=== PATIENT | female | born 1935 | race Caucasian/White ===

== ENCOUNTER → 2017-01-13 | Outpatient (CLI) | payer OTHER ==
[~2017-01-13] MED LIST: AMLO-110 PO; AMLO-114 PO; APR10 PO; ASPI81TA28 PO; CALC500T83 PO; CHOL100010 PO; CLC100X PO; CRD2 PO; CYAN10002 INJ; DOXA1TAB86 PO; FLUT0.15; FURO-85 PO; GLIM2TAB PO; HYDR-4383 PO; HYZ/10015 PO; ISOS60TA25 PO; KFL500 PO; LOSA100T2 PO; METH4PAK PO; METO-551 PO; METO100T14 PO; NTRGSL/4 UT; OMEP40CA PO; PANT40TA PO; TOLT2TAB9 PO; TRMCR130WC
[2017-01-13 12:37] LABS: BLOOD UREA NITROGEN 30 mg/dl (7-18); BUN/CREATININE RATIO 24.7 (10-20); CALCIUM 8.6 mg/dl (8.5-10.1); CARBON DIOXIDE 25 mmol/L (21-32); CHLORIDE 107 mmol/L (98-107); GLUCOSE 199 mg/dl (70-99); POTASSIUM 4.9 mmol/L (3.5-5.1); SODIUM 141 mmol/L (136-145)
== END | disposition home or self-care (01) ==
LOC: C.LABBFT 11:12
PROVIDERS: ATTEND Internal Medicine Geriatric Medicine
DX: I25.10 Atherosclerotic heart disease of native coronary artery without angina pectoris (principal); E11.29 Type 2 diabetes mellitus with other diabetic kidney complication; I10 Essential (primary) hypertension

== ENCOUNTER → 2017-01-18 | Outpatient (CLI) | payer OTHER | END | disposition home or self-care (01) | LOC: C.LABSPEC 16:56 | PROVIDERS: ATTEND Nurse Practitioner Family | DX: R35.0 Frequency of micturition (principal); R30.0 Dysuria ==

== ENCOUNTER → 2017-01-24 | Outpatient (CLI) | payer OTHER ==
--- NOTE | 2017-01-24 13:07 | DIAGNOSTIC IMAGING REPORT ---
ULTRASOUND KIDNEYS AND BLADDER CLINICAL HISTORY: Urinary tract infection. COMPARISON STUDY: Abdominal CT dated 01/11/2013. TECHNIQUE: Real-time, grayscale, and color flow sonography of the kidneys and bladder is performed. Images are reviewed in the transverse and longitudinal planes. FINDINGS: Kidneys: The kidneys are atrophic. The right kidney measures 9.9 x 4.6 x 3.9 cm and the left kidney measures 10.1 x 4.4 x 5.1 cm. There is no hydronephrosis. No shadowing renal calculi are identified. Prominent lobulation of left kidney is similar to previous. No solid mass is clearly seen. No perinephric fluid is identified. Bladder: The bladder is decompressed and grossly normal in appearance. Bilateral ureteral jets were seen. Upper abdomen: Survey images of the liver demonstrate cirrhotic change and steatosis. IMPRESSION: 1. The kidneys demonstrate cortical atrophy and are without hydronephrosis. 2. The bladder was decompressed and grossly unremarkable. Electronically signed by: Bryce Jack M.D. 01/24/2017 1:06 PM Dictated Date/Time: 01/24/2017 1:03 PM
== END | disposition home or self-care (01) ==
LOC: C.ULTR 12:18
PROVIDERS: ATTEND Nurse Practitioner Family
DX: N39.0 Urinary tract infection, site not specified (principal); N26.1 Atrophy of kidney (terminal)

== ENCOUNTER → 2017-03-11 | Outpatient (CLI) | payer OTHER ==
[2017-03-11 13:38] LABS: HEMATOCRIT 34.6 % (37-47); MEAN CELL VOLUME 95.3 fL (80-100); MEAN CORPUSCULAR HEMOGLOBIN 32.5 pg (25-34); MEAN CORPUSCULAR HGB CONC 34.1 g/dl (32-36); MEAN PLATELET VOLUME 13.3 fL (7.4-10.4); PLATELET COUNT 61 K/uL (130-400); RED BLOOD COUNT 3.63 M/uL (4.2-5.4); WHITE BLOOD COUNT 2.83 K/uL (4.8-10.8)
[2017-03-11 13:39] LABS: COMPLETE YES; EOS % 1.4 %; IG% 0.4 %; LARGE PLATELETS 1+; LYMPH ABS # 0.48 K/uL (1.2-3.4); MONO % 10.6 %; NEUT % 70.6 %; PLT ESTIMATE DECREASED
[2017-03-11 13:43] LABS: ESTIMATED AVERAGE GLUCOSE 143 mg/dl; HA1C FLAG Normal (Normal)
[2017-03-11 14:01] LABS: ALT/SGPT 28 U/L (12-78); BLOOD UREA NITROGEN 29 mg/dl (7-18); BUN/CREATININE RATIO 23.9 (10-20); CARBON DIOXIDE 27 mmol/L (21-32); CHLORIDE 107 mmol/L (98-107); GLUCOSE 141 mg/dl (70-99); POTASSIUM 4.4 mmol/L (3.5-5.1); SODIUM 141 mmol/L (136-145)
[2017-03-11 14:02] LABS: CALCIUM 8.8 mg/dl (8.5-10.1)
[2017-03-11 14:11] LABS: ALB/GLOB RATIO 0.8 (0.9-2); ALKALINE PHOSPHATASE 111 U/L (45-117); AST/SGOT 31 U/L (15-37)
--- NOTE | 2017-03-11 16:25 | ECHOCARDIOGRAM REPORT ---
*NOTICE TO RECEIVING REPUBLICAN AGENCY This information is strictly Confidential and protected under [place] law. [place] law prohibits you from making any further disclosure of this information unless further disclosure is expressly permitted by the written consent of the person to whom it pertains or is authorized by law. A general authorization for the release of medical or other information is not sufficient for this purpose. Hospital accepts no responsibility if the information is made available to any other person, INCLUDING THE PATIENT. Interpretation Summary * Name: HEATHER ESTRADA Study Date: 03/11/2017 12:21 PM BP: 145/45 mmHg * Patient Location: [facility] HR: 59 * : 1935 (M/d/yyyy) Gender: Female Height: 61 in * Age: 81 yrs Ethnicity: [place] Weight: 185 lb * Ordering Physician: Alfred Guthrie * Referring Physician: Dariana Bird * Performed By: Meeta Cuevas RDCS * * Reason For Study: a/p tavr * BSA: 1.8 m2 * -- Conclusions -- * There is mild asymmetric left ventricular hypertrophy. * Left ventricular systolic function is normal. * Grade I diastolic dysfunction, (abnormal relaxation pattern). * The left atrium is moderately dilated. * The right atrium is mildly dilated. * A bioprsthetic aortic valve (TAVR) is present * Normal transvalvular gradients * Right ventricular systolic pressure is normal. Procedure Details * The study was technically adequate. Left Ventricle * The left ventricle is normal in size. * There is mild asymmetric left ventricular hypertrophy. * Ejection Fraction = 60-65%. * Left ventricular systolic function is normal. * Grade I diastolic dysfunction, (abnormal relaxation pattern). Right Ventricle * The right ventricle is normal in size and function. Atria * The left atrium is moderately dilated. * The right atrium is mildly dilated. Mitral Valve * The mitral valve is grossly normal. * Significant mitral regurgitation is absent. Tricuspid Valve * The tricuspid valve is not well visualized, but is grossly normal. * There is trace tricuspid regurgitation. * Right ventricular systolic pressure is normal. Aortic Valve * There is no significant aortic regurgitation. * A bioprsthetic aortic valve (TAVR) is present Normal transvalvular gradients * The prosthetic aortic valve is well-seated. Pericardium/Pleural * There is no pericardial effusion. Great Vessels * Normal inferior vena cava diameter and respiratory variation suggests normal central venous pressure. MMode 2D Measurements and Calculations IVSd 1.6 cm IVSs 1.8 cm LVIDd 4.3 cm LVIDs 2.8 cm LVPWd 1.3 cm LVPWs 2.4 cm IVS/LVPW 1.3 FS 33.3 % EDV(Teich) 81.3 ml ESV(Teich) 30.6 ml EF(Teich) 62.4 % EDV(cubed) 77.3 ml ESV(cubed) 22.9 ml EF(cubed) 70.4 % % IVS thick 7.4 % % LVPW thick 89.8 % LV mass(C)d 242.3 grams LV mass(C)dI 132.6 grams/m\S\2 LV mass(C)s 267.7 grams LV mass(C)sI 146.5 grams/m\S\2 SV(Teich) 50.7 ml SI(Teich) 27.7 ml/m\S\2 SV(cubed) 54.4 ml SI(cubed) 29.8 ml/m\S\2 LA dimension 4.7 cm LVOT diam 1.9 cm LVOT area 2.8 cm\S\2 LVAd ap4 36.4 cm\S\2 LVLd ap4 8.9 cm EDV(MOD-sp4) 120.8 ml EDV(sp4-el) 126.9 ml LVAs ap4 18.8 cm\S\2 LVLs ap4 6.7 cm ESV(MOD-sp4) 43.7 ml ESV(sp4-el) 44.9 ml EF(MOD-sp4) 63.8 % EF(sp4-el) 64.6 % SV(MOD-sp4) 77.1 ml SI(MOD-sp4) 42.2 ml/m\S\2 SV(sp4-el) 82.0 ml SI(sp4-el) 44.9 ml/m\S\2 Doppler Measurements and Calculations MV E max angelina 79.3 cm/sec MV A max angelina 109.5 cm/sec MV E/A 0.72 MV dec time 0.43 sec Ao V2 max 191.6 cm/sec Ao max PG 14.7 mmHg Ao max PG (full) 7.9 mmHg Ao V2 mean 126.1 cm/sec Ao mean PG 7.5 mmHg Ao mean PG (full) 4.1 mmHg Ao V2 VTI 48.5 cm KATHERIN(I,A) 2.1 cm\S\2 KATHERIN(I,D) 2.1 cm\S\2 KATHERIN(V,A) 1.9 cm\S\2 KATHERIN(V,D) 1.9 cm\S\2 LV V1 max PG 6.8 mmHg LV V1 mean PG 3.4 mmHg LV V1 max 130.5 cm/sec LV V1 mean 83.1 cm/sec LV V1 VTI 36.2 cm SV(LVOT) 100.8 ml SI(LVOT) 55.1 ml/m\S\2 TR max angelina 221.6 cm/sec
== END | disposition home or self-care (01) ==
LOC: C.CPL 11:28
PROVIDERS: ATTEND Internal Medicine Interventional Cardiology
DX: Z95.2 Presence of prosthetic heart valve (principal); I25.10 Atherosclerotic heart disease of native coronary artery without angina pectoris; I10 Essential (primary) hypertension; R06.02 Shortness of breath; R35.0 Frequency of micturition; M85.80 Other specified disorders of bone density and structure, unspecified site; G62.9 Polyneuropathy, unspecified; E11.29 Type 2 diabetes mellitus with other diabetic kidney complication

== ENCOUNTER 2017-04-20 17:41 | Emergency (ER) | payer OTHER ==
[~2017-04-20] VITALS: Ht 152.4 cm; Wt 83.9 kg
[~2017-04-20 17:41] MED LIST changes: -AMLO-114 PO; -CLC100X PO; -FLUT0.15; -HYDR-4383 PO; -HYZ/10015 PO; -METH4PAK PO; -METO-551 PO; -PANT40TA PO; -TOLT2TAB9 PO; -TRMCR130WC
[2017-04-20 17:44] VITALS: TEMP 36.6; Ht 152.4 cm; Wt 83.9 kg
[2017-04-20] MEDS ORDERED: HYZ/10015 PO (18:13)
[2017-04-20] MEDS ORDERED: TOLT2TAB9 PO (18:13)
[2017-04-20] MEDS ORDERED: TRMCR130WC (18:13)
[2017-04-20] MEDS ORDERED: FLUT0.15 (18:13)
[2017-04-20] MEDS ORDERED: CLC100X PO (18:13)
[2017-04-20] MEDS ORDERED: PANT40TA PO (18:13)
[2017-04-20] MEDS ORDERED: ISOS60TA25 PO (18:13)
[2017-04-20] MEDS ORDERED: HYDR-4383 PO (18:13)
[2017-04-20] MEDS ORDERED: METO-551 PO (18:13)
[2017-04-20] MEDS ORDERED: AMLO-114 PO (18:13)
[2017-04-20 19:42] LABS: INR 1.1 (0.9-1.1); PARTIAL THROMBOPLASTIN RATIO 1.1; PROTHROMBIN TIME (PATIENT) 11.7 SECONDS (9.0-12.0)
[2017-04-20 19:49] LABS: BUN/CREATININE RATIO 24.6 (10-20); CALCIUM 8.3 mg/dl (8.5-10.1); POTASSIUM 3.9 mmol/L (3.5-5.1)
[2017-04-20 19:53] LABS: C-REACTIVE PROTEIN 0.4 mg/dl (0-0.29)
[2017-04-20 20:00] LABS: BASO % 0.4 %; BASO ABS # 0.01 K/uL (0-0.2); COMPLETE YES; EOS % 1.6 %; HEMATOCRIT 34.8 % (37-47); LARGE PLATELETS 1+; LYMPH ABS # 0.48 K/uL (1.2-3.4); MEAN CELL VOLUME 93.3 fL (80-100); MEAN CORPUSCULAR HEMOGLOBIN 32.2 pg (25-34); MEAN CORPUSCULAR HGB CONC 34.5 g/dl (32-36); MONO % 11.1 %; NEUT % 67.9 %; PLATELET COUNT 62 K/uL (130-400); PLT ESTIMATE DECREASED; RED BLOOD COUNT 3.73 M/uL (4.2-5.4); WHITE BLOOD COUNT 2.52 K/uL (4.8-10.8)
[2017-04-20] MEDS ORDERED: METH4PAK PO (20:51)
[2017-04-20 21:04] VITALS: BP 124/64; PULSE 82; O2SAT 96
--- NOTE | 2017-04-20 23:51 | EMERGENCY ROOM VISIT NOTE ---
ED Visit Note First contact with patient: 18:44 I have personally evaluated and examined this patient. I agree with assessment and plan of Alexandru Rosenberg PA-C.
--- NOTE | 2017-04-20 23:55 | EMERGENCY ROOM VISIT NOTE ---
History First contact with patient: 18:44 Chief Complaint: RASH Stated Complaint: RASH ON LEGS History of Present Illness The patient is a 82 year old female who presents to the Emergency Room with complaints of a rash on her legs that is now starting to spread to her arms. She also reports some nausea, myalgias, "bone aches" and overall not feeling well. The patient reports that she developed this rash 2 weeks ago. She was seen 2 days ago by her PCP, Dr. Dickinson. Per the patient, she was prescribed triamcinolone cream for possible contact dermatitis. She was also seen yesterday by her academic affairs manager, Dr. Guthrie who suggested that she see a automotive general manager. The patient reports that the rash is somewhat itchy and nonpainful. The patient reports significant history of thrombocytopenia, diabetes and valvular heart disease. Review of Systems HEENT: Denies dizziness, visual problems, hearing loss, tinnitus. Denies difficulty swallowing or oral lesions. PULMONARY: Denies cough, shortness of breath, sputum production or hemoptysis. CARDIOVASCULAR: Denies chest pain, palpitations, dyspnea on exertion, orthopnea or peripheral edema. GASTROINTESTINAL: Denies diarrhea, constipation or vomiting. GENITOURINARY: Denies dysuria, frequency, urgency or nocturia. NEUROLOGIC: Denies history of epilepsy, CVA, TIA or chronic headaches. MUSCULOSKELETAL: Denies history of joint tenderness/swelling. SKIN: Denies rashes or lesions. PSYCHIATRIC: Denies history of depression or mental illness. ENDOCRINE: History of diabetes. Denies history of thyroid disorders. 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 (16) Substernal precordial chest pain (17) Tricuspid Valve Disease (18) Unstable angina (19) Vitamin D Deficiency, Unspecified Surgical Problems: (1) H/O percutaneous transluminal coronary angioplasty (2) Stented coronary artery Family History Diabetes mellitus Heart disease Social History Smoking Status: Never Smoker Alcohol Use: none Marital Status: Occupation Status: retired Current/Historical Medications Scheduled Amlodipine (Norvasc), 10 MG PO DAILY Aspirin (Aspirin Ec), 81 MG PO DAILY Docusate Sodium (Docusate Sodium), 100 MG PO Q2D Doxazosin Mesylate (Doxazosin Mesylate), 2 MG PO DAILY Glimepiride (Amaryl), 2 MG PO QAM Hctz/Losartan (Hyzaar 25MG/100MG), 1 TAB PO DAILY Isosorbide Mononitrate Ext Rel (Imdur Ext Rel), 60 MG PO QAM Methylprednisolone (Medrol Dosepak), 0 PO DAILY Metoprolol Tartrate (Lopressor), 50 MG PO BID Nitroglycerin (Nitrostat), 0.4 MG UT PRN Pantoprazole (Protonix), 40 MG PO DAILY Tolterodine Tartrate (Tolterodine Tartrate), 2 MG PO BID Scheduled PRN Hydrocodone/Acetaminophen ([place] 10/325 Tab), 1 TAB PO TID PRN for Pain Miscellaneous Medications Fluticasone Propionate (Nasal) (Flonase Allergy Relief) Triamcinolone Acet (Aristocort 0.1%) Allergies Coded Allergies: Nortriptyline (Verified Allergy, Intermediate, RASH, 04/20/17) Duloxetine (Unverified Allergy, Unknown, GI SYMPTOMS, 04/20/17) Gabapentin (Unverified Allergy, Unknown, DIZZINESS, 04/20/17) Metformin (Unverified Allergy, Unknown, DIARRHEA, 04/20/17) Niacin (Verified Allergy, Unknown, SWELLING, 04/20/17) Nitrofurantoin (Unverified Allergy, Unknown, MYALGIA, 04/20/17) Venlafaxine (Unverified Allergy, Unknown, GI SYMPTOMS, 04/20/17) Lisinopril (Verified Adverse Reaction, Mild, COUGH, 04/20/17) Physical Exam Vital Signs Date Time Temp Pulse Resp B/P (MAP) Pulse Ox O2 Delivery O2 Flow Rate FiO2 04/20/17 21:04 82 18 124/64 96 04/20/17 20:03 65 18 129/72 97 Room Air 04/20/17 17:44 36.6 62 18 154/68 97 Room Air Physical Exam CONSTITUTIONAL: Healthy and well nourished. Alert and oriented X 3 with positive affect. Patient does not appear in any acute distress. HEENT: Normocephalic, atraumatic. Pupils equal, round and reactive. Ears and nares are clear. No scleral icterus or conjunctival injection/pallor. OROPHARYNX: No tonsillar hypertrophy or exudates. NECK: Full active range of motion without discomfort. No JVD or carotid bruits. RESPIRATORY: Clear to auscultation bilaterally with no wheezing, crackles, rhonchi or stridor. CARDIOVASCULAR: Regular rate and rhythm with no murmurs, rubs or gallops. GASTROINTESTINAL: Bowel sounds present in all quadrants. Soft and nontender to palpation. No obvious hepatosplenomegaly. Negative McBurney's point tenderness. Negative CVA tenderness. MUSCULOSKELETAL: Full range of motion of all joints without discomfort. No increased warmth to palpation, bogginess or discomfort to the major joints. No tenderness to palpation through the central back or paraspinous muscles. Negative logroll. Pedal pulses are intact with capillary refill of the toes less than 2 seconds. INTEGUMENTARY: Examination shows a petechial/erythematous rash on bilateral lower extremities that do not malinda with pressure. No vesicles, pustules or desquamation noted. The patient has a few areas of similar vasculitis on bilateral arms. NEUROLOGIC: Cranial nerves II-XII grossly intact. No focal neurologic deficits noted. Feet are grossly sensory intact. Medical Decision & Procedures Laboratory Results 04/20/17 19:15 Red Blood Count 3.73, Mean Corpuscular Volume 93.3, Mean Corpuscular Hemoglobin 32.2, Mean Corpuscular Hemoglobin Concent 34.5, Mean Platelet Volume 13.0, Neutrophils (%) (Auto) 67.9, Lymphocytes (%) (Auto) 19.0, Monocytes (%) (Auto) 11.1, Eosinophils (%) (Auto) 1.6, Basophils (%) (Auto) 0.4, Neutrophils # (Auto ) 1.71, Lymphocytes # (Auto) 0.48, Monocytes # (Auto) 0.28, Eosinophils # (Auto ) 0.04, Basophils # (Auto) 0.01 04/20/17 19:15 Test 04/20/17 19:15 White Blood Count 2.52 K/uL (4.8-10.8) Red Blood Count 3.73 M/uL (4.2-5.4) Hemoglobin 12.0 g/dL (12.0-16.0) Hematocrit 34.8 % (37-47) Mean Corpuscular Volume 93.3 fL (80-100) Mean Corpuscular Hemoglobin 32.2 pg (25-34) Mean Corpuscular Hemoglobin Concent 34.5 g/dl (32-36) Platelet Count 62 K/uL (130-400) Mean Platelet Volume 13.0 fL (7.4-10.4) Neutrophils (%) (Auto) 67.9 % Lymphocytes (%) (Auto) 19.0 % Monocytes (%) (Auto) 11.1 % Eosinophils (%) (Auto) 1.6 % Basophils (%) (Auto) 0.4 % Neutrophils # (Auto) 1.71 K/uL (1.4-6.5) Lymphocytes # (Auto) 0.48 K/uL (1.2-3.4) Monocytes # (Auto) 0.28 K/uL (0.11-0.59) Eosinophils # (Auto) 0.04 K/uL (0-0.5) Basophils # (Auto) 0.01 K/uL (0-0.2) RDW Standard Deviation 47.4 fL (36.4-46.3) RDW Coefficient of Variation 13.8 % (11.5-14.5) Immature Granulocyte % (Auto) 0.0 % Immature Granulocyte # (Auto) 0.00 K/uL (0.00-0.02) Platelet Estimate DECREASED Large Platelets 1+ Erythrocyte Sedimentation Rate 21 mm/hr (0-21) Prothrombin Time 11.7 SECONDS (9.0-12.0) Prothromb Time International Ratio 1.1 (0.9-1.1) Activated Partial Thromboplast Time 28.5 SECONDS (21.0-31.0) Partial Thromboplastin Ratio 1.1 Anion Gap 9.0 mmol/L (3-11) Est Creatinine Clear Calc Drug Dose 41.0 ml/min Estimated GFR () 60.3 Estimated GFR (Non- 52.1 BUN/Creatinine Ratio 24.6 (10-20) Calcium Level 8.3 mg/dl (8.5-10.1) Total Bilirubin 0.6 mg/dl (0.2-1) Direct Bilirubin 0.2 mg/dl (0-0.2) Aspartate Amino Transf (AST/SGOT) 34 U/L (15-37) Alanine Aminotransferase (ALT/SGPT) 31 U/L (12-78) Alkaline Phosphatase 120 U/L (45-117) C-Reactive Protein 0.40 mg/dl (0-0.29) Total Protein 6.7 gm/dl (6.4-8.2) Albumin 3.1 gm/dl (3.4-5.0) The above labs were reviewed. Platelet count is baseline compared to prior recent levels. She is also leukopenic. No evidence for anemia. PT, PTT and INR are normal. The patient does have a mildly elevated alkaline phosphatase, otherwise bilirubin and LFTs are normal. C-reactive protein is mildly elevated , but sedimentation rate is normal. ED Course Patient history and physical exam were performed. Nurse's notes were reviewed. Vital signs were reviewed and normal. The patient is afebrile. O2 saturation is 97% on room air, and the patient is not tachycardic. The patient was also seen and evaluated by Dr. Castro, ED attending physician, who helped to formulate plan of care. We did suggest checking some labs, and the patient was in agreement. IV access was established, and labs were drawn. The patient refused any analgesics. Review of labs shows a baseline platelet count. She is also leukopenic. CRP is also mildly elevated with a normal sedimentation rate. Labs were reviewed with Dr. Castro. He suggested close outpatient follow-up and treatment with a Medrol Dosepak. I did suggest that the patient follow her blood glucose levels closely. The patient reports that she has taken prednisone before in the past without any problems. The patient also believes that her muscle and bone aching may be secondary to vitamin D deficiency as she has been treated in the past for this. She was instructed to return to the emergency department for any progressively worsening rash, fever, pain or other concerning symptoms. Patient was happy with plan of care, and voiced understanding of all discharge instructions. Medical Decision She presents with complaint of a rash for the past 2 weeks. The rash has an appearance of vasculitis. She has petechiae on bilateral legs, and a few lesions on the arms. Patient has a known history of pancytopenia. The rash does not appear to be that of cellulitis. She is afebrile. At this point I do not suspect sepsis, DIC, Hill-Yoni syndrome or other acute central vasculitic process. Impression Primary Impression: Vasculitis Additional Impressions: Diabetes Pancytopenia Departure Information Prescriptions Methylprednisolone (MEDROL DOSEPAK) 4 Mg Hamzah 0 PO DAILY, #1 PKT Prov: Alexandru Rosenberg PA 04/20/17 Referrals Daniel Dickinson M.D. (PCP) Patient Instructions My [facility] Problem Qualifiers Additional Impressions: Diabetes Diabetes mellitus type: type 2 Diabetes mellitus complication status: without complication Diabetes mellitus halfway insulin use: without air support operations operator use Qualified Codes: E11.9 - Type 2 diabetes mellitus without complications
== END 2017-04-20 21:05 | disposition home or self-care (01) ==
LOC: C.EDB 17:42 → C.EDD 21:05
DX: I77.6 Arteritis, unspecified (principal); E11.9 Type 2 diabetes mellitus without complications; D61.818 Other pancytopenia; Z85.828 Personal history of other malignant neoplasm of skin; I10 Essential (primary) hypertension; I25.10 Atherosclerotic heart disease of native coronary artery without angina pectoris; K57.32 Diverticulitis of large intestine without perforation or abscess without bleeding; D46.9 Myelodysplastic syndrome, unspecified; E78.00 Pure hypercholesterolemia, unspecified; I38 Endocarditis, valve unspecified; E55.9 Vitamin D deficiency, unspecified; Z83.3 Family history of diabetes mellitus; Z82.49 Family history of ischemic heart disease and other diseases of the circulatory system; Z79.82 Long term (current) use of aspirin; Z79.899 Other long term (current) drug therapy

== ENCOUNTER → 2017-04-26 | Outpatient (CLI) | payer OTHER ==
[~2017-04-26] MED LIST changes: -AMLO-110 PO; +AMLO-114 PO; -APR10 PO; -CALC500T83 PO; -CHOL100010 PO; +CLC100X PO; -CRD2 PO; -CYAN10002 INJ; +FLUT0.15; -FURO-85 PO; +HYDR-4383 PO; +HYZ/10015 PO; -KFL500 PO; -LOSA100T2 PO; +METH4PAK PO; +METO-551 PO; -METO100T14 PO; -OMEP40CA PO; +PANT40TA PO; +TOLT2TAB9 PO; +TRMCR130WC
[2017-04-26 14:02] LABS: BLOOD UREA NITROGEN 30 mg/dl (7-18); BUN/CREATININE RATIO 27.5 (10-20); CALCIUM 8.4 mg/dl (8.5-10.1); CARBON DIOXIDE 28 mmol/L (21-32); CHLORIDE 107 mmol/L (98-107); GLUCOSE 215 mg/dl (70-99); POTASSIUM 4.5 mmol/L (3.5-5.1); SODIUM 141 mmol/L (136-145)
[2017-04-26 14:40] LABS: HEMATOCRIT 36.6 % (37-47); MEAN CELL VOLUME 93.6 fL (80-100); MEAN CORPUSCULAR HEMOGLOBIN 31.5 pg (25-34); MEAN CORPUSCULAR HGB CONC 33.6 g/dl (32-36); MEAN PLATELET VOLUME 12.8 fL (7.4-10.4); PLATELET COUNT 79 K/uL (130-400); RED BLOOD COUNT 3.91 M/uL (4.2-5.4); WHITE BLOOD COUNT 3.74 K/uL (4.8-10.8)
[2017-04-26 14:42] LABS: BASO % 0.3 %; BASO ABS # 0.01 K/uL (0-0.2); COMPLETE YES; EOS % 0.5 %; IG% 0.5 %; LYMPH % 14.2 %; LYMPH ABS # 0.53 K/uL (1.2-3.4); MONO % 8.8 %; NEUT % 75.7 %
[2017-04-26 14:48] LABS: LYME DISEASE AB IGG NEG (NEG); LYME DISEASE AB IGM NEG (NEG)
== END | disposition home or self-care (01) ==
LOC: C.LABBC 11:55
PROVIDERS: ATTEND Physician Assistant Medical
DX: I77.6 Arteritis, unspecified (principal); M79.1 Myalgia

== ENCOUNTER → 2017-05-05 | Outpatient (CLI) | payer OTHER ==
[~2017-05-05] MED LIST changes: -METH4PAK PO
--- NOTE | 2017-05-05 13:39 | MAMMOGRAPHY REPORT ---
BILATERAL DIGITAL SCREENING MAMMOGRAM WITH CAD: 05/05/2017 CLINICAL HISTORY: Routine screening. Patient has no complaints. TECHNIQUE: Current study was also evaluated with a Computer Aided Detection (CAD) system. Bilateral CC and MLO views were obtained. COMPARISON: Comparison is made to exams dated: 05/04/2016 mammogram, 04/29/2015 mammogram, 04/25/2014 m ammogram, 04/24/2013 mammogram, 04/06/2012 mammogram, and 04/01/2011 mammogram - [facility] enter. BREAST COMPOSITION: There are scattered areas of fibroglandular density in both breasts. FINDINGS: No suspicious masses, calcifications, or areas of architectural distortion are noted in ei ther breast. There has been no significant interval change compared to prior exams. Scattered bilater al benign-appearing calcifications are not significantly changed. IMPRESSION: ACR BI-RADS CATEGORY 2: BENIGN There is no mammographic evidence of malignancy. A 1 year screening mammogram is recommended. The pa tient will receive written notification of the results. Approximately 10% of breast cancers are not detected with mammography. A negative mammographic report should not delay biopsy if a clinically suggestive mass is present. Gloria Méndez M.D. /:05/05/2017 12:32:12 [employer]: Portia JOSUE(Adriana)(Sheryl)(KAR), [facility] letter sent: Normal 1/2 BI-RADS Code: ACR BI-RADS Category 2: Benign
== END | disposition home or self-care (01) ==
LOC: C.MAMM 10:08
PROVIDERS: ATTEND Internal Medicine Geriatric Medicine
DX: Z12.31 Encounter for screening mammogram for malignant neoplasm of breast (principal)

== ENCOUNTER → 2018-02-02 | Outpatient (CLI) | payer OTHER ==
[~2018-02-02] MED LIST changes: +CRFUDL PO; +LEVO-459 PO; +PANT1TAB3 PO; -PANT40TA PO
[2018-02-02 17:14] LABS: HEMOGLOBIN 11.1 g/dL (12.0-16.0); MEAN CELL VOLUME 96.2 fL (80-100); MEAN CORPUSCULAR HEMOGLOBIN 32.4 pg (25-34); MEAN CORPUSCULAR HGB CONC 33.6 g/dl (32-36); MEAN PLATELET VOLUME 13.4 fL (7.4-10.4); PLATELET COUNT 63 K/uL (130-400); RED CELL DISTRIBUTION WIDTH CV 14.6 % (11.5-14.5); RED CELL DISTRIBUTION WIDTH SD 51.8 fL (36.4-46.3); WHITE BLOOD COUNT 2.59 K/uL (4.8-10.8)
[2018-02-02 17:18] LABS: BLOOD UREA NITROGEN 22 mg/dl (7-18); GLUCOSE 155 mg/dl (70-99)
[2018-02-02 17:19] LABS: ALBUMIN 2.7 gm/dl (3.4-5.0); ALT/SGPT 28 U/L (12-78); CALCIUM 8.2 mg/dl (8.5-10.1); CARBON DIOXIDE 27 mmol/L (21-32); CHOLESTEROL 105 mg/dl (0-200); POTASSIUM 4.7 mmol/L (3.5-5.1); SODIUM 139 mmol/L (136-145)
[2018-02-02 17:27] LABS: BASO % 0.4 %; BASO ABS # 0.01 K/uL (0-0.2); EOS % 1.9 %; EOS ABS # 0.05 K/uL (0-0.5); LYMPH % 19.3 %; MONO % 11.6 %; NEUT % 66.8 %; NEUT ABS # 1.73 K/uL (1.4-6.5)
[2018-02-02 17:29] LABS: ALKALINE PHOSPHATASE 122 U/L (45-117); AST/SGOT 34 U/L (15-37); LDL CHOLESTEROL CALCULATED 45 mg/dl; TOTAL PROTEIN 6.2 gm/dl (6.4-8.2)
[2018-02-03 08:21] LABS: HEMOGLOBIN A1C 6.5 % (4.5-5.6)
== END | disposition home or self-care (01) ==
LOC: C.LABBFT 11:43
PROVIDERS: ATTEND Physician Assistant Medical
DX: I25.10 Atherosclerotic heart disease of native coronary artery without angina pectoris (principal); I10 Essential (primary) hypertension; D61.818 Other pancytopenia; E55.9 Vitamin D deficiency, unspecified; E11.29 Type 2 diabetes mellitus with other diabetic kidney complication; G47.30 Sleep apnea, unspecified

== ENCOUNTER → 2018-06-27 | Outpatient (CLI) | payer OTHER ==
[~2018-06-27] MED LIST changes: -AMLO-114 PO; +AMLO10TA3 PO
--- NOTE | 2018-06-27 11:31 | DIAGNOSTIC IMAGING REPORT ---
R HIP UNILATERAL 2 VIEWS CLINICAL HISTORY: 83 years-old Female presenting with M25.551 Right hip [id number]. TECHNIQUE: Frontal and frog-leg lateral views of the right hip were obtained. COMPARISON: Correlation made to CT of abdomen pelvis from 2013. FINDINGS: Right hip joint congruent. Osteophytosis noted. No advanced joint space loss. Osteopenia suspected. Right femoral neck intact. Visualized portion of the bony pelvis intact. Degenerative changes of the right sacroiliac joint and pubic symphysis. Partially visualized lumbar spine demonstrates posterior lumbar fusion hardware and a interbody spacer at L4-5. Atherosclerosis. IMPRESSION: 1. Mild degenerative changes of the right hip. 2. Osteopenia. This limits evaluation for nondisplaced fracture. 3. No acute osseous injury. Electronically signed by: Francisco Rivas M.D. 06/27/2018 11:29 AM Dictated Date/Time: 06/27/2018 11:27 AM
== END | disposition home or self-care (01) ==
LOC: C.RAD1850 11:14
PROVIDERS: ATTEND Physician Assistant Medical
DX: M85.851 Other specified disorders of bone density and structure, right thigh (principal); M25.551 Pain in right hip

== ENCOUNTER 2019-11-06 22:03 | Inpatient (IN) ==
[2019-11-06] MEDS ORDERED: SODIUM CHLORIDE 0.9% 1000ML 1,000 ML IV SCH (22:30)
--- NOTE | 2019-11-06 22:51 | XRay Report ---
SINGLE VIEW CHEST CLINICAL HISTORY: Generalized weakness. FINDINGS: An AP, portable, upright chest radiograph is compared to study dated 10/13/2019. Correlatio n is made with chest CT dated 12/31/2013. The examination is degraded by portable technique, apical lo rdotic positioning, and patient rotation. The heart is enlarged noting atherosclerotic calcification of the thoracic aorta. A stent projects over the heart. The pulmonary vasculature is noncongested. Ch ronic interstitial thickening is similar to previous. There is bibasilar scarring/atelectasis. No air space consolidation or large pleural effusion is identified. No pneumothorax is seen. The skeletal st ructures are osteopenic. The bony thorax is grossly intact. Degenerative change is noted in the shoul ders and thoracic spine. IMPRESSION: Cardiomegaly with no acute cardiopulmonary abnormality. ACT 112: Negative or not required by law. Electronically signed by: Bryce Jack M.D. 11/06/2019 10:50 PM
[2019-11-06 22:59] LABS: iSTAT Creatinine 2.3 mg/dl (0.6-1.3); iSTAT Hemoglobin 7.8 g/dl (12.0-16.0); iSTAT Ionized Calcium 1.14 mmol/l (1.12-1.32); iSTAT Potassium 6.4 mEq/L (3.3-5.0)
[2019-11-06] MEDS ORDERED: DEXTROSE 50% 50 ML SYRINGE IV ONE (23:03)
[2019-11-06] MEDS ORDERED: NovoLIN-R INSULIN PER UNIT CHARGE IV STA (23:03)
[2019-11-06] MEDS ORDERED: CALCIUM GLUCONATE 10% 1,000 MG in SODIUM CHLORIDE 0.9% 50 ML IV STA (23:03)
[2019-11-06] MEDS ORDERED: SODIUM BICARB 8.4% INJ 50 MEQ/50 ML SYR IV STA (23:03)
[2019-11-06] MEDS ORDERED: CALCIUM GLUCONATE 10% 10 ML VIAL IV ONE (23:20)
[2019-11-06 23:42] LABS: Hematocrit (blood only) 24.5 % (37-47); Hemoglobin 8.1 g/dL (12.0-16.0); Mean Corpuscular Hemoglobin 32.9 pg (25-34); Mean Corpuscular Hgb Conc 33.1 g/dL (32-36); Mean Corpuscular Volume 99.6 fL (80-100); Mean Platelet Volume 12.5 fL (7.4-10.4); Platelet Count 69 K/uL (130-400); RDW Coefficient of Variation 16.1 % (11.5-14.5); RDW Standard Deviation 58.2 fL (36.4-46.3); Red Blood Count 2.46 M/uL (4.2-5.4); White Blood Count 2.91 K/uL (4.8-10.8)
[2019-11-06 23:44] LABS: Eosinophils # (auto) 0.08 K/uL (0-0.5); Eosinophils % (auto) 2.7 %; Lymphocytes # (auto) 0.45 K/uL (1.2-3.4); Lymphocytes % (auto) 15.5 %; Monocytes # (auto) 0.32 K/uL (0.11-0.59); Neutrophils # (auto) 2.06 K/uL (1.4-6.5); Neutrophils % (auto) 70.8 %
[2019-11-06 23:47] LABS: Albumin Globulin Ratio 0.7 (0.9-2); Albumin Level 2.5 gm/dl (3.4-5.0); BUN Creatinine Ratio 20.1 (10-20); Bilirubin,Total 1.3 mg/dl (0.2-1); Calcium 8.5 mg/dl (8.5-10.1); Creatinine Clr Calc Pharmacy 18.8 ml/min; Est GFR (African American) 22.7; Est GFR (Non-African American) 19.6; Globulin 3.5 gm/dl (2.5-4.0); Magnesium 1.5 mg/dl (1.8-2.4); Potassium 6.5 mmol/L (3.5-5.1); Thyroid Stimulating Hormone 5.76 uIu/ml (0.300-4.500); Troponin I 0.022 ng/ml (0-0.045)
[2019-11-07 00:14] LABS: T4 Free Thyroxine 1.42 ng/dl (0.8-1.6)
--- NOTE | 2019-11-07 01:14 | Emergency Department Note ---
Entered by Papa Varner acting as a scribe for ED Provider Note CHIEF COMPLAINT: Elevated potassium HISTORY OF PRESENT ILLNESS: The patient is an 84 year old female who presents to the Emergency Room with complaints of a constant elevation in her potassium level beginning this morning. The patient states she had blood work performed today at [facility]. She reports she received a call from her PCP today with her test results, and she had a potassium of 7. The patient notes she was told to come to the ED because of her history of heart trouble. She states she intermittently vomits at baseline, and she has been vomiting with her potassium level elevation. She reports she normally has tenderness in her LLQ of her abdomen, and she has had increased swelling of her legs. The patient notes she has also been weak lately, and she has not been able to do things she normally is able to. The patient reports she is on hospice for prospective liver cancer. She notes she has not had a biopsy, but she has two nodules on her liver. The patient states her PCP is DEBBIE - Alva Bob - and she has a [facility] GI phys ician. Pt denies LOC, headache, fevers, chills, diaphoresis, visual changes, neck pain, chest pain, back pain, melena, hematochezia, urinary symptoms, numbness, lymphadenopathy, rash, or other complaints. REVIEW OF SYSTEMS: See HPI for pertinent positives and negatives. A total of ten systems were reviewed and were otherwise negative. PMHx/PSHx: DM, liver cirrhosis, MDS, CAD, percutaneous transluminal coronary angioplasty. SOCIAL HISTORY: No current alcohol or tobacco use. PHYSICAL EXAM: GENERAL: Awake, alert, well-appearing, in no distress HENT: Normocephalic, atraumatic. Oropharynx unremarkable. EYES: PERRL. Normal conjunctiva. Sclera non-icteric. NECK: Inspection normal. Non-tender. Supple. No nuchal rigidity. FROM. No masses. RESPIRATORY: Clear to auscultation. No wheezes. No rales. Normal respiratory effort. CARDIAC: Normal rate. Normal rhythm. Systolic ejection murmurs with S4. No rubs. Extremities warm and well perfused. Pulses equal. No JVD. GI: Soft, non-distended. Mild LLQ tenderness to palpation. No rebound or gua rding. No masses. RECTAL: Deferred. MUSCULOSKELETAL: Atraumatic. Chest examination reveals no tenderness. The back is symmetrical on inspection without obvious abnormality. There is no CVA tenderness to palpation. No joint edema. LOWER EXTREMITIES: Calves are equal size bilaterally and non-tender. 3+ pitting edema bilaterally. No discoloration. NEURO: Normal sensorium. No sensory or motor deficits noted. SKIN: No rash or jaundice noted. EMERGENCY DEPARTMENT COURSE: 2223: The patient was evaluated in room B03B, and a complete history and physical examination were performed. 2243: I reviewed the patient's outpatient lab results. Per 11:36AM, the patient's potassium was 7. 2331: Upon reevaluation, the patient is resting comfortably. I discussed laboratory and radiographic results with her. She verbalized agreement of the treatment plan. The patient will be evaluated for further management and care. 1235: I discussed the patient's case with Dr. Del Castillo, [facility] Hospitalist. He will evaluate the patient for further management and care. MEDICAL DECISION MAKING: Prior records/ancillary studies reviewed. Nursing notes reviewed and agree them. Additional history obtained from family. The patient's history was concerning for weakness, vomiting, known liver disease and renal disease, and abnormal outpatient labs. Differential diagnosis: Etiologies such as metabolic, infection, hyperkalemia, hypo/hyperglycemia, electrolyte abnormalities, cardiac sources, intracerebral event, toxicologic, n eurologic, as well as others were entertained. Physical examination: As above. ER treatment provided: IV Lock IV dextrose IV insulin IV calcium gluconate IV bicarbonate IV normal saline On reassessment the patient felt better. Diagnostics interpretation by me: ECG: Bradycardia with old left bundle branch block. The labs revealed pancytopenia on CBC. Chemistry panel revealed chronic kidney disease with a very low GFR. Potassium significantly elevated. Mild hyperglycemia. Imaging studies: CT scan of the abdomen pelvis revealed chronic findings including ascites and vascular changes. No acute process noted. The patient has hyperkalemia and weakness. Given the fluctuation of her po tassium from the mid 6-7 range treatment was initiated as above. The patient was feeling better on reassessment. Further management in the hospital will be necessary. Consultation: A consultation was placed with the hospitalist. The case was discussed and diagnostics were reviewed. The patient was evaluated in the ER for further treatment. IMPRESSION: Hyperkalemia Vomiting Anemia Thrombocytopenia CKD Ascites PLAN: Admitted The scribe's documentation has been prepared under my direction and personally r eviewed by me in its entirety. I confirm that the note above accurately reflects all work, treatment, procedures, and medical decision making performed by me. CRITICAL CARE: I have personally spent greater than 30 minutes of critical care time in the direct management of this patient. This includes bedside care, interpretation of diagnostic studies, and testing, discussion with consultants, patient, and family members, and other required patient management activities. This 30 minutes is in excess of all separately billable procedures. Impression & Plan Acute hyperkalemia, Vomiting, Anemia, Thrombocytopenia, CKD (chronic kidney disease), Ascites Past Med/Surg History Medical History Acute bronchitis (Acute) CAD (coronary artery disease), cabazon coronary artery (Chronic 07/14/14) Chest pain with high risk of acute coronary syndrome (Acute 07/14/14) Diabetes (Acute) Hyperglycemia (Acute) Hyperglycemia (Acute) Liver cirrhosis MDS (myelodysplastic syndrome) (Chronic ~07/2002) Upper respiratory infection (Acute) Surgical History H/O percutaneous transluminal coronary angioplasty (Resolved) Hx of aortic valve replacement (Acute) pt states they did not remove her valve just added a second one Stented coronary artery (Chronic) Family History Other Family history non-contributory Social History Preferred Language: Lao Communication Ability: Effective Visual Impairment: No Limitations Hearing Ability: Normal Beliefs That Will Affect Care: Scientologist Scientologist Beliefs: Reformed [employer] of [place] Current Living Situation: [facility] Feels Safe at Home: Yes Smoking Status: Former smoker Tobacco Type: cigarettes ; Second Hand Exposure: Yes ; Hx Alcohol Use: No Hx Substance Use: No Results & Data Vital Signs Vital Signs - 24 hr 11/06/19 22:04 11/06/19 22:20 11/06/19 22:30 Temperature 36.5 C Temperature Source Oral Pulse Rate 55 L 87 71 Pulse Rate from SpO2 Sensor 53 L 55 L Respiratory Rate 18 14 24 Blood Pressure 166/60 H 154/72 H Blood Pressure Mean 95 100 Blood Pressure Position Sitting Pulse Oximetry 100 99 99 Oxygen Delivery Method Room Air Room Air Room Air Sepsis Recent Fever Within 48 Hours No Sepsis New/Unexplained Change in Mental Status No Sepsis Action Taken by Nursing No Action Required 11/06/19 22:46 11/06/19 23:00 11/06/19 23:13 Temperature Temperature Source Pulse Rate 77 55 L Pulse Rate from SpO2 Sensor 51 L 51 L Respiratory Rate 21 17 Blood Pressure 124/39 L Blood Pressure Mean 71 Blood Pressure Position Pulse Oximetry 100 100 Oxygen Delivery Method Room Air Room Air Room Air Sepsis Recent Fever Within 48 Hours Sepsis New/Unexplained Change in Mental Status Sepsis Action Taken by Nursing 11/06/19 23:30 11/07/19 00:00 11/07/19 01:01 Temperature Temperature Source Pulse Rate 50 L 59 L 56 L Pulse Rate from SpO2 Sensor Respiratory Rate 17 25 H 21 Blood Pressure 123/45 L 146/47 H Blood Pressure Mean 61 56 Blood Pressure Position Pulse Oximetry 94 99 Oxygen Delivery Method Room Air Room Air Room Air Sepsis Recent Fever Within 48 Hours Sepsis New/Unexplained Change in Mental Status Sepsis Action Taken by [facility] Medications Current Medication List: was personally reviewed by me Laboratory Data Attestation: I reviewed the patient's lab results. Result diagrams: 11/06/19 22:42 11/06/19 22:42 Lab Results 11/06/19 11/06/19 11/06/19 Range/Units 22:42 22:42 22:43 WBC 2.91 L (4.8-10.8) K/uL RBC 2.46 L (4.2-5.4) M/uL Hgb 8.1 L (12.0-16.0) g/dL POC Hgb 7.8 L (12.0-16.0) g/dl Hct 24.5 L (37-47) % POC Hct 23 L (37-47) % MCV 99.6 (80-100) fL MCH 32.9 (25-34) pg MCHC 33.1 (32-36) g/dL RDW Std Deviation 58.2 H (36.4-46.3) fL RDW Coeff of [place]kin 16.1 H (11.5-14.5) % Plt Count 69 L (130-400) K/uL MPV 12.5 H (7.4-10.4) fL Immature Gran % (Auto) 0.0 % Neut % (Auto) 70.8 % Lymph % (Auto) 15.5 % [place] % (Auto) 11.0 % Eos % (Auto) 2.7 % Baso % (Auto) 0.0 % Immature Gran # (Auto) 0.00 (0.00-0.02) K/uL Neut # (Auto) 2.06 (1.4-6.5) K/uL Lymph # (Auto) 0.45 L (1.2-3.4) K/uL [place] # (Auto) 0.32 (0.11-0.59) K/uL Eos # (Auto) 0.08 (0-0.5) K/uL Baso # (Auto) 0.00 (0-0.2) K/uL POC Sodium 139 (135-144) mEq/L Sodium 141 (136-145) mmol/L POC Potassium 6.4 H* (3.3-5.0) mEq/L Potassium 6.5 H* (3.5-5.1) mmol/L POC Chloride 110 (101-112) mEq/L Chloride 111 H (98-107) mmol/L Carbon Dioxide 24 (21-32) mmol/L POC Total CO2 21 L (24-31) mEq/l Anion Gap 6.0 (3-11) POC Anion Gap 16.0 (16-25) mmol/L POC BUN 37 H (7-18) mg/dl BUN 45 H (7-18) mg/dl Creatinine 2.22 H (0.6-1.2) mg/dl POC Creatinine 2.3 H (0.6-1.3) mg/dl Est Cr Clr Drug Dosing 18.8 ml/min Est GFR ( Amer) 22.7 Est GFR (Non-Af Amer) 19.6 BUN/Creatinine Ratio 20.1 H (10-20) Glucose 138 H (70-99) mg/dl POC Glucose (other) 136 H (70-99) mg/dl Calcium 8.5 (8.5-10.1) mg/dl POC Ioniz Calcium Eyad 1.14 (1.12-1.32) mmol/l Magnesium 1.5 L (1.8-2.4) mg/dl Total Bilirubin 1.3 H (0.2-1) mg/dl AST 35 (15-37) U/L ALT 20 (12-78) U/L Alkaline Phosphatase 134 H (45-117) U/L Troponin I 0.022 (0-0.045) ng/ml Total Protein 6.0 L (6.4-8.2) gm/dl Albumin 2.5 L (3.4-5.0) gm/dl Globulin 3.5 (2.5-4.0) gm/dl Albumin/Globulin Ratio 0.7 L (0.9-2) TSH 5.760 H (0.300-4.500) uIu/ml Free T4 1.42 (0.8-1.6) ng/dl Administered Medications Sodium Chloride (Nss 1000ml) 1,000 mls @ 125 mls/hr IV .Q8H ANGELA Stop: 11/07/19 06:29 Last Infusion: 11/07/19 01:08 Dose: 0 mls/hr Documented by: [id number] Admin: 11/06/19 23:15 Dose: 125 mls/hr Documented by: [id number] Discontinued Medications Calcium Gluconate (Calcium Gluconate 10%) Confirm Administered Dose 1,000 mg IV .STK-MED ONE Stop: 11/06/19 23:21 Last Admin: 11/06/19 23:35 Dose: Not Given Documented by: [id number] Dextrose (Dextrose 50%) 25 ml IV NOW ONE Stop: 11/06/19 23:04 Last Admin: 11/06/19 23:28 Dose: 25 ml Documented by: [id number] Calcium Gluconate 1,000 mg/ (Sodium Chloride) 60 mls @ 240 mls/hr IV NOW STA Stop: 11/06/19 23:17 Last Infusion: 11/06/19 23:49 Dose: 0 mls/hr Documented by: [id number] Admin: 11/06/19 23:34 Dose: 240 mls/hr Documented by: [id number] Insulin Human Regular (Novolin R U-100 Per Unit) 10 units IV NOW STA Stop: 11/06/19 23:04 Last Admin: 11/06/19 23:30 Dose: 10 units Documented by: [id number] Cosigned by: [id number] Sodium Bicarbonate (Sodium Bicarbonate 8.4%) 50 meq IV NOW STA Stop: 11/06/19 23:04 Last Admin: 11/06/19 23:30 Dose: 50 meq Documented by: [id number] Imaging Data Radiologist's Impression: Radiology results as stated below per my review and the radiologist's interpretation: SINGLE VIEW CHEST CLINICAL HISTORY: Generalized weakness. FINDINGS: An AP, portable, upright chest radiograph is compared to study dated 10/13/2019. Correlation is made with chest CT dated 12/31/2013. The examination is degraded by portable technique, apical lordotic positioning, and patient rotation. The heart is enlarged noting atherosclerotic calcification of the thoracic aorta. A stent projects over the heart. The pulmonary vasculature is noncongested. Chronic interstitial thickening is similar to previous. There is bibasilar scarring/atelectasis. No airspace consolidation or large pleural effusion is identified. No pneumothorax is seen. The skeletal structures are osteopenic. The bony thorax is grossly intact. Degenerative change is noted in the shoulders and thoracic spine. IMPRESSION: Cardiomegaly with no acute cardiopulmonary abnormality. ACT 112: Negative or not required by law. Electronically signed by: Bryce Jack M.D. 11/06/2019 10:50 PM Radiology results as stated below per my review and the [facility] radiologist's interpretation: CT ABDOMEN & PELVIS Without Contrast: Findings: Lung bases: Mild basilar chronic lung changes. Distal heart and esophagus: Endovascular stent at the aortic root. Right and left coronary calcifications. Mild body wall edema involving the left greater than right body wall as well as abdominal wall. Intraperitoneal: Moderate ascites. Liver: Small cirrhotic appearance to the liver. Periesophageal varices. Splenomegaly consistent with underlying portal venous hypertension. Adrenals:Grossly normal. Kidneys: Slightly small size of the kidneys. Retroperitoneum:Atherosclerotic calcification of the abdominal aorta with ectasia of the right common iliac artery relative to the left. Bowel: Medially displaced due to the ascites. Negative for obstruction. Pelvis: Moderate pelvic ascites. Uterus is absent Bones: Lower lumbar spine post fusion and postsurgical changes of laminectomy. Moderate bilateral hip osteoarthritis with sclerotic changes in the femoral heads. Coronal and sagittal reformatted images are not available. Impression: 1. Endovascular stent at aortic root, coronary calcifications. 2. Cirrhotic appearance to the liver with body wall edema, moderate to large asc ites, varices and splenomegaly consistent with underlying portal venous hypertension. 3. Lumbar spine post fusion and postsurgical changes. Moderate bilateral hip osteoarthritis. Radiologist: Doug Lutz MD Study ready at 23:16 and initial results transmitted at 23:37 ECG Data Attestation: I personally reviewed and interpreted this ECG as follows: Indication: + other (hyperkalemia) Rate (beats per minute): 54 Rhythm: sinus bradycardia ECG Intervals/blocks: + Left bundle branch block ECG [place]: + Normal ECG ST segments: no ST depression and no ST elevation ECG Findings: no PVCs Comparison ECG Date: from (10/13/2019) Change: no significant change Blood Pressure Blood Pressure Findings: Low blood pressure Blood Pressure Disposition: further management by hospitalist Discharge Plan Visit Data Chief Complaint: Abnormal Labs/Diagnostic Testing Stated Complaint: POTASSIUM IS 7 ED Provider: Moses Flores Discharge Problem: Acute hyperkalemia, Vomiting, Anemia, Thrombocytopenia, CKD (chronic kidney disease), Ascites Patient Disposition: Being Evaluated by Hospitalist Forms Stand Alone Forms: My [facility] Prescriptions Prescriptions: No Action isosorbide mononitrate 60 mg tablet extended release 24 hr 60 mg PO DAILY Qty: 90 RF: 3 levothyroxine 25 mcg tablet 25 mcg PO DAILY Qty: 90 RF: 3 metoprolol tartrate 50 mg tablet 50 mg PO BID Qty: 180 RF: 3 losartan 100 mg tablet 100 mg PO DAILY Qty: 90 RF: 1 nitroglycerin 0.4 mg tablet, sublingual 0.4 mg SL Q5M PRN (Reason: chest pain) Qty: 25 RF: 2 pantoprazole 40 mg tablet,delayed release (DR/EC) 40 mg PO BID Qty: 180 RF: 1 hydrocodone-acetaminophen [[place]] 10-325 mg tablet 1 tab PO TID PRN (Reason: Pain) Qty: 20 RF: 0 furosemide 40 mg tablet 40 mg PO DAILY Qty: 90 RF: 3 aspirin 81 mg tablet,delayed release (DR/EC) 81 mg PO DAILY RF: 0 polyethylene glycol 3350 [Miralax] 17 gram powder in packet 17 gm PO DAILY PRN (Reason: constipation) RF: 0 fentanyl 12 mcg/hr Patch 72 Hour 1 patch TRANSDERMAL Q72H RF: 0 Referrals Referrals: Tony Arzola MD [Primary Care Provider] - Discharge Problem: Vomiting Qualifiers: Vomiting type: unspecified Vomiting Intractability: non-intractable Nausea presence: with nausea Qualified Code(s): R11.2 - Nausea with vomiting, unspecified Anemia Qualifiers: Anemia type: unspecified type Qualified Code(s): D64.9 - Anemia, unspecified CKD (chronic kidney disease) Qualifiers: Chronic kidney disease stage: unspecified stage Qualified Code(s): N18.9 - Chronic kidney disease, unspecified Ascites Qualifiers: Ascites type: other type Qualified Code(s): R18.8 - Other ascites The scribe's documentation has been prepared under my direction and personally reviewed by me in its entirety. I confirm that the note above accurately reflects all work, treatment, procedures, and medical decision making performed by me.
--- NOTE | 2019-11-07 02:02 | History & Physical Report ---
Date of Service November 07, 2019 Assessment & Plan (1) Hyperkalemia: 84-year-old female was admitted on 07 November 2019 for hyperkalemia. Hyperkalemia: Admit potassium 6.4. Magnesium 1.5. May be due in part to radish intake. Also has had some recent vomiting. - In the ED, afebrile, bradycardic, at times tachypneic, with rather good blood pressure and room SpO2. Has pancytopenia. Troponin 0.022. EKG is sinus bradycardia rate 54 with LBBB (history of latter). Normal intervals and non- peaked T waves. pCXR noted cardiomegaly without acute abnormality. - In ED, treated with calcium gluconate, sodium bicarbonate, insulin dextrose, and normal saline IVF. - Will treat with albumin 25% and Lasix 40 mg IV combo. Recheck in a couple hours after admit. Keep on teletypesetter monitor. May need magnesium replacement as well. Peripheral edema, chronic diastolic CHF, BRUNNER, ascites, ? hepatocellular carcinoma: Followed by GI. Patient has noted increased leg swelling recently. On hospice for presumed liver cancer. See admit CT a/p read. Record mentions paracentesis on 18Dec. Outpatient PCP note mentions dry weight around 170 pounds (77 kg). Admit weight 92.7 kg. - Will continue with home cardiac meds as noted below. Chronic kidney disease: Though not listed in previous records, admit Cr 2.2 appears to be a progressive worsening over the past few months. BUN elevated at 45 but also around baseline. - Will need close monitoring due to Lasix administration as above. Elevated TSH: Admit TSH 5.7, free T4 1.4. Could not find discussion of hypothyroidism in brief search of outpatient medical record. However, will continue her listed home levothyroxine. Ongoing medical issues: - HTN, CAD, ACS: Continue home Lasix, Imdur, losartan, metoprolol, aspirin. - Diabetes mellitus: Patient says is controlled with diet at home. Monitor for now. - Myelodysplastic syndrome, pancytopenia: Admit WBC 2.9, hemoglobin 8.1, platelets 69. All similar to prior. Code status: DNR/DNI (confirmed with patient). Diet: Regular. DVT prophy: Held acutely, as patient can ambulate. PT/OT: Deferred. Disbo: Admit to [facility]. Is presently on hospice for possible liver cancer. (2) Peripheral edema: (3) Chronic diastolic (congestive) heart failure: (4) Nonalcoholic steatohepatitis (BRUNNER): (5) Ascites: (6) Liver mass: (7) CKD (chronic kidney disease): (8) Elevated TSH: (9) Hypertension: (10) CAD (coronary artery disease), [place] coronary artery: (11) MDS (myelodysplastic syndrome): History of Present Illness Primary Care Provider: Erick Arzola MD 84-year-old female presents at the request of her doctor for an elevated potassium. She says that she had some routine blood work done at [facility] and was told that her potassium was 7. Otherwise, patient does not seem to have any acute medical concerns. She does note she was recently admitted to [facility] for about 3.5 weeks for rehabilitation regarding her leg swelling. She was just discharged home this past Tuesday 20Dec. She says that she lives in an independent living facility but still needs some help with ADLs. She notes she continues to have nausea with most meals and occasional emesis. Says that she has no real appetite anymore, though she does like eating about three radishes per day (says it is better than snickers bars). Also mentions that she was recently told she had masses on her liver but she does not really wish to have these thoroughly evaluated. She is presently on hospice. She does say that she has some left upper quadrant regional abdominal pain that is not new. She attributes it to her ascites for which she gets a paracentesis about every month, most recently back on October 31. - Past medical history includes hypertension, CAD, ACS, diabetes, liver cirrhosis, myelodysplastic syndrome, lower extremity edema, chronic diastolic congestive heart failure, pseudoaneurysm of the right femoral artery, pancytopenia, osteoarthritis, hemorrhoids. - Past surgical history includes aortic valve surgery (? TAVR), coronary stent, hysterectomy, lumbar fusion - Social history includes denying tobacco or alcohol use. Lives at home alone. Allergies Allergy/AdvReac Type Severity Reaction Status Date / Time nortriptyline Allergy Intermediate RASH Verified 11/06/19 22:54 duloxetine Allergy Unknown GI SYMPTOMS Verified 11/06/19 22:54 gabapentin Allergy Unknown DIZZINESS Verified 11/06/19 22:54 metformin Allergy Unknown DIARRHEA Verified 11/06/19 22:54 niacin Allergy Unknown SWELLING Verified 11/06/19 22:54 nitrofurantoin Allergy Unknown MYALGIA Verified 11/06/19 22:54 venlafaxine Allergy Unknown GI SYMPTOMS Verified 11/06/19 22:54 lisinopril AdvReac Mild COUGH Verified 11/06/19 22:54 Home Medications Home Medications Medication Instructions Recorded Confirmed Type isosorbide mononitrate 60 mg 60 mg PO DAILY #90 tab 04/17/19 11/06/19 Rx tablet,extended release 24 hr aspirin 81 mg tablet,delayed 81 mg PO DAILY 06/04/19 11/06/19 History release levothyroxine 25 mcg tablet 25 mcg PO DAILY #90 tab 06/05/19 11/06/19 Rx losartan 100 mg tablet 100 mg PO DAILY #90 tab 06/07/19 11/06/19 Rx metoprolol tartrate 50 mg tablet 50 mg PO BID #180 tab 06/07/19 11/06/19 Rx polyethylene glycol 3350 17 gram 17 gm PO DAILY PRN 06/07/19 11/06/19 History oral powder packet nitroglycerin 0.4 mg sublingual 0.4 mg SL Q5M PRN #25 tab 07/13/19 11/06/19 Rx tablet fentanyl 1 patch TRANSDERMAL Q72H 09/25/19 11/06/19 History pantoprazole 40 mg tablet,delayed 40 mg PO BID #180 tab 09/27/19 11/06/19 Rx release hydrocodone 10 mg-acetaminophen 1 tab PO TID PRN #20 tab 10/09/19 11/06/19 Rx 325 mg tablet furosemide 40 mg tablet 40 mg PO DAILY #90 tab 11/05/19 11/06/19 Rx Past Med/Surg History Medical History (Updated 11/08/19 @ 14:26 by Sheryl Hill DO) Acute bronchitis (Acute) Anemia CAD (coronary artery disease), [place] coronary artery (Chronic 07/14/14) Chest pain with high risk of acute coronary syndrome (Acute 07/14/14) Diabetes (Acute) Hyperglycemia (Acute) Hyperglycemia (Acute) Liver cirrhosis MDS (myelodysplastic syndrome) (Chronic ~07/2002) Upper respiratory infection (Acute) Surgical History H/O percutaneous transluminal coronary angioplasty (Resolved) Hx of aortic valve replacement (Acute) pt states they did not remove her valve just added a second one Stented coronary artery (Chronic) Family History Other Family history non-contributory Social History Preferred Language: Libyan Communication Ability: Effective Visual Impairment: No Limitations Hearing Ability: Normal 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 Beliefs That Will Affect Care: None Current Living Situation: Alone Current Living Situation Comment: lives at home alone with hospice Other Information That Helps Us Care for You: No Feels Safe at Home: Yes Safety Concerns: Feels Safe At This Time Smoking Status: Former smoker Tobacco Type: cigarettes ; Do You Dip or Chew Tobacco: No ; Second Hand Exposure: No ; Tobacco Cessation Education Requested by Patient: No Hx Alcohol Use: No Hx Substance Use: No Review of Systems Review of Systems: Constitutional: Denies fevers, chills, focal weakness Eyes: Denies any visual loss or diplopia ENT: Denies any ear/nose/throat pain or difficulty speaking or swallowing Respiratory: Denies any dyspnea, cough, hemoptysis Cardiovascular: Denies any chest pain. Ongoing bilateral lower extremity edema. Gastrointestinal: Positive left upper quadrant abdominal discomfort. Ongoing nausea. Minimal vomiting. Some loose stools. Musculoskeletal: Denies any acute extremity pains, myalgias, or focal weakness Skin: Denies any known acute rashes or lesions Neuro: Denies any headache, acute focal weakness or numbness, or difficulties with speech or swallow. Physical Exam Physical Exam: GENERAL: Awake, alert, well-appearing and pleasantly conversational in full sentences, in no acute distress. HENT: Normocephalic, atraumatic. Oropharynx unremarkable. EYES: Normal conjunctiva. Sclera non-icteric. NECK: Inspection normal. Supple and full ROM. No nuchal rigidity. CARDIAC: +S1S2 RRR with a 3/6 murmur. RESPIRATORY: Clear to auscultation. No wheezes or rales. Normal respiratory effort. GI: +BS, soft, positive fluid wave and some mild tenderness in the left upper quadrant. EXTREMITIES: 3+ pitting edema in her bilateral lower extremities. NEURO: No gross neuro deficits. Results & Data Vital Signs (Past 12 Hours) Vital Signs Temp Pulse Resp BP Pulse Ox 11/07/19 01:01 56 L 21 146/47 H 99 11/07/19 00:00 59 L 25 H 123/45 L 94 11/06/19 23:30 50 L 17 11/06/19 23:13 55 L 17 124/39 L 100 11/06/19 23:00 77 21 100 11/06/19 22:30 71 24 99 11/06/19 22:20 87 14 154/72 H 99 11/06/19 22:04 36.5 C 55 L 18 166/60 H 100 Laboratory Results 11/06/19 11/06/19 11/06/19 Range/Units 22:43 22:42 22:42 WBC 2.91 L (4.8-10.8) K/uL RBC 2.46 L (4.2-5.4) M/uL Hgb 8.1 L (12.0-16.0) g/dL POC Hgb 7.8 L (12.0-16.0) g/dl Hct 24.5 L (37-47) % POC Hct 23 L (37-47) % MCV 99.6 (80-100) fL MCH 32.9 (25-34) pg MCHC 33.1 (32-36) g/dL RDW Std Deviation 58.2 H (36.4-46.3) fL RDW Coeff of Elkin 16.1 H (11.5-14.5) % Plt Count 69 L (130-400) K/uL MPV 12.5 H (7.4-10.4) fL Immature Gran % (Auto) 0.0 % Neut % (Auto) 70.8 % Lymph % (Auto) 15.5 % [place] % (Auto) 11.0 % Eos % (Auto) 2.7 % Baso % (Auto) 0.0 % Immature Gran # (Auto) 0.00 (0.00-0.02) K/uL Neut # (Auto) 2.06 (1.4-6.5) K/uL Lymph # (Auto) 0.45 L (1.2-3.4) K/uL [place] # (Auto) 0.32 (0.11-0.59) K/uL Eos # (Auto) 0.08 (0-0.5) K/uL Baso # (Auto) 0.00 (0-0.2) K/uL POC Sodium 139 (135-144) mEq/L Sodium 141 (136-145) mmol/L POC Potassium 6.4 H* (3.3-5.0) mEq/L Potassium 6.5 H* (3.5-5.1) mmol/L POC Chloride 110 (101-112) mEq/L Chloride 111 H (98-107) mmol/L Carbon Dioxide 24 (21-32) mmol/L POC Total CO2 21 L (24-31) mEq/l Anion Gap 6.0 (3-11) POC Anion Gap 16.0 (16-25) mmol/L POC BUN 37 H (7-18) mg/dl BUN 45 H (7-18) mg/dl Creatinine 2.22 H (0.6-1.2) mg/dl POC Creatinine 2.3 H (0.6-1.3) mg/dl Est Cr Clr Drug Dosing 18.8 ml/min Est GFR ( Amer) 22.7 Est GFR (Non-Af Amer) 19.6 BUN/Creatinine Ratio 20.1 H (10-20) Glucose 138 H (70-99) mg/dl POC Glucose (other) 136 H (70-99) mg/dl Calcium 8.5 (8.5-10.1) mg/dl POC Ioniz Calcium Eyad 1.14 (1.12-1.32) mmol/l Magnesium 1.5 L (1.8-2.4) mg/dl Total Bilirubin 1.3 H (0.2-1) mg/dl AST 35 (15-37) U/L ALT 20 (12-78) U/L Alkaline Phosphatase 134 H (45-117) U/L Troponin I 0.022 (0-0.045) ng/ml Total Protein 6.0 L (6.4-8.2) gm/dl Albumin 2.5 L (3.4-5.0) gm/dl Globulin 3.5 (2.5-4.0) gm/dl Albumin/Globulin Ratio 0.7 L (0.9-2) TSH 5.760 H (0.300-4.500) uIu/ml Free T4 1.42 (0.8-1.6) ng/dl Medications Administered Sodium Chloride (Nss 1000ml) 1,000 mls @ 125 mls/hr IV .Q8H ANGELA Stop: 11/07/19 06:29 Last Infusion: 11/07/19 01:08 Dose: 0 mls/hr Documented by: [id number] Admin: 11/06/19 23:15 Dose: 125 mls/hr Documented by: [id number] Discontinued Medications Calcium Gluconate (Calcium Gluconate 10%) Confirm Administered Dose 1,000 mg IV .STK-MED ONE Stop: 11/06/19 23:21 Last Admin: 11/06/19 23:35 Dose: Not Given Documented by: [id number] Dextrose (Dextrose 50%) 25 ml IV NOW ONE Stop: 11/06/19 23:04 Last Admin: 11/06/19 23:28 Dose: 25 ml Documented by: [id number] Calcium Gluconate 1,000 mg/ (Sodium Chloride) 60 mls @ 240 mls/hr IV NOW STA Stop: 11/06/19 23:17 Last Infusion: 11/06/19 23:49 Dose: 0 mls/hr Documented by: [id number] Admin: 11/06/19 23:34 Dose: 240 mls/hr Documented by: [id number] Insulin Human Regular (Novolin R U-100 Per Unit) 10 units IV NOW STA Stop: 11/06/19 23:04 Last Admin: 11/06/19 23:30 Dose: 10 units Documented by: [id number] Cosigned by: [id number] Sodium Bicarbonate (Sodium Bicarbonate 8.4%) 50 meq IV NOW STA Stop: 11/06/19 23:04 Last Admin: 11/06/19 23:30 Dose: 50 meq Documented by: [id number] Code Status & VTE Plan Code Status DNR/DNI (per patient's established wishes) VTE Prophylaxis Plan VTE Prophylaxis will be ordered: No Supervising Physician Co-Signing Physician Notes Attending addendum: I have physically seen this patient, have supervised the medical residents activities, and agree with the H&P unless as otherwise noted. Assessment and Plan: Acute hyperkalemia/hypomagnesemia/acute kidney injury on chronic kidney disease- The patient will be admitted to telemetry for serial cardiac enzymes, serial EKG's, cardiac rhythm monitoring and a 2-D echocardiogram with Dopplers. Calcium gluconate 1 g IV. Give magnesium sulfate 2 g IV. Give albumin 25% with Lasix 40 mg IV. Amp of D50 with 10 regular insulin IV as needed. Follow serial BMP and magnesium levels. Anasarca/ascites/liver cirrhosis/varices/splenomegaly/portal hypertension- Use of albumin with Lasix as noted above. Remainder of orders and notations as noted. Resident Activity Tracking Resident Involvement: Resident Care Provided Care Provided: Adult [facility] (1) CKD (chronic kidney disease) Chronic kidney disease stage: unspecified stage Qualified Code(s): N18.9 - Chronic kidney disease, unspecified
[2019-11-07] MEDS ORDERED: POLYETHYLENE (MIRALAX) 17 GM PACK PO PRN (03:03)
[2019-11-07] MEDS ORDERED: ALBUMIN 25% 50 ML with FUROSEMIDE 40 MG IV ONE (03:03)
[2019-11-07] MEDS ORDERED: NITROGLYCERIN SL 0.4 MG/TAB TAB SL PRN (03:03)
[2019-11-07] MEDS: LEVOTHYROXINE SODIUM 25 MCG TABLET PO SCH (06:36)
[2019-11-07 06:50] LABS: BUN Creatinine Ratio 20.6 (10-20); Calcium 8.3 mg/dl (8.5-10.1); Creatinine Clr Calc Pharmacy 18.8 ml/min; Est GFR (African American) 24.3; Est GFR (Non-African American) 20.9; Magnesium 1.5 mg/dl (1.8-2.4); Phosphorus 3.1 mg/dl (2.5-4.9); Potassium 6.1 mmol/L (3.5-5.1)
--- NOTE | 2019-11-07 07:25 | CT Scan Report ---
CT OF THE ABDOMEN AND PELVIS WITHOUT CONTRAST CLINICAL HISTORY: Vomiting. COMPARISON STUDY: CT of the abdomen and pelvis October 13, 2019. TECHNIQUE: Axial images of the abdomen and pelvis were obtained without IV contrast. Images were revi ewed in the axial, sagittal, and coronal planes. Automated exposure control was utilized for the maggie dy. A dose lowering technique was utilized adhering to the principles of ALARA. FINDINGS: Aortic valvular prosthesis is noted. Moderate cardiomegaly. No pneumatosis, free air or por becca venous gas is present. Body wall anasarca is noted. Moderate abdominal and pelvic ascites is pres ent. The liver is cirrhotic. The liver is suboptimally assessed on this unenhanced exam. A 5.2 cm rig ht hepatic dome lesion on axial image 14 of 93 has increased in size since CT of February 16, 2019 when i t measured 3.9 cm. An additional 2.7 cm right hepatic dome lesion is either unchanged or slightly inc reased in size since CT of February 16, 2019.] Additional smaller right hepatic lobe lesion appears uncha nged. Splenomegaly is unchanged. There is no evidence for a bowel obstruction. Colonic diverticulosis is noted without evidence for acute diverticulitis. There is no hydronephrosis. Unenhanced images of the adrenal glands are unremarkable. Pancreatic glandular atrophy is again noted. IMPRESSION: 1. Cirrhosis with manifestations of portal hypertension including splenomegaly and moderate ascites. Body wall anasarca. 2. Several right hepatic dome lesions which are suboptimally assessed on this unenhanced CT but the l argest lesion has increased in size since CT of February 16, 2019. 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 3. No bowel obstruction. ACT 112: Negative or not required by law. Electronically signed by: Neeraj Simon M.D. 11/07/2019 7:24 AM
[2019-11-07] MEDS: LOSARTAN POTASSIUM 50 MG TAB PO SCH (09:02)
[2019-11-07] MEDS: CHECK FENTANYL PATCH PLACEMENT SCH ×2 (09:02→16:00)
[2019-11-07] MEDS: ASPIRIN 81 MG ECTAB PO SCH (09:03)
[2019-11-07] MEDS: PANTOprazole 40 MG TAB PO SCH ×2 (09:03→20:20)
[2019-11-07] MEDS: METOPROLOL TARTRATE 50 MG TAB PO SCH ×2 (09:03→20:19)
[2019-11-07] MEDS: ISOSORBIDE MONO EXTENDED REL 60 MG TABCR PO SCH (09:03)
[2019-11-07] MEDS: FUROSEMIDE 40 MG TAB PO SCH ×2 (09:03→10:37)
[2019-11-07 10:59] LABS: Appearance Urine Clear (Clear); Bilirubin Urine Negative (Negative); Blood Urine Negative (Negative); Color Urine Yellow; Glucose Urine UA Negative (Negative); Ketones Urine Negative (Negative); Nitrite Urine Negative (Negative); Protein Urine Negative (Negative); Urobilinogen Urine Negative (Negative)
[2019-11-07 11:00] LABS: Leukocyte Esterase Urine Negative (Negative)
[2019-11-07] MEDS: MAGNESIUM OXIDE 400 MG TAB PO SCH (11:52)
--- NOTE | 2019-11-07 14:35 | Hospitalist Progress Note ---
Date of Service November 07, 2019 Assessment & Plan (1) Hyperkalemia: 84-year-old female was admitted on 07 November 2019 for hyperkalemia. Hyperkalemia: Admit potassium 6.4, reports 7.1 on outpt labs. Also has had some recent vomiting. - In the ED, afebrile, bradycardic, at times tachypneic, with rather good blood pressure and room SpO2. Has pancytopenia. Troponin 0.022. EKG is sinus bradycardia rate 54 with LBBB (history of latter). Normal intervals and non- peaked T waves. pCXR noted cardiomegaly without acute abnormality. - In ED, treated with calcium gluconate, sodium bicarbonate, insulin dextrose, and normal saline IVF. - Albumin 25% and Lasix 40 mg IV combo on admission (2) Hypomagnesemia: Replace PO and monitor (3) Urinary symptom or sign: Burning, similar to recent UTI Finished course of abx recently UA pending (4) Chronic diastolic (congestive) heart failure: Patient has noted increased leg swelling recently. On hospice for presumed liver cancer. CTAP noted for worsening mass s/p paracentesis on 10/31 Outpatient PCP note mentions dry weight around 170 pounds (77 kg). Admit weight 92.7 kg. (5) Peripheral edema: Resume lasix (6) Nonalcoholic steatohepatitis (BRUNNER): Followed by [facility] (7) Ascites: s/p paracentesis on 10/31 Lasix is not generally the most effective for this Spironolactone stopped by GI recently, ?? related to itching?? per PCP note Was started 07/2019 by CHF clinic and noted to have new itching a few weeks later by PCP Pt states this was stopped by [facility] while she was at [facility], possibly causing hyperK?? (8) Liver mass: Hospice for this CTAP noted (9) CKD (chronic kidney disease): Though not listed in previous records, admit Cr 2.2 appears to be a progressive worsening over the past few months. BUN elevated at 45 but also around baseline. - Will need close monitoring due to Lasix administration as above. (10) Elevated TSH: Elevated TSH: Admit TSH 5.7, free T4 1.4. Could not find discussion of hypothyroidism in brief search of outpatient medical record. However, will continue her listed home levothyroxine. (11) Hypertension: Holding home meds for asx bradycardia BP stable in 140s, monitor (12) CAD (coronary artery disease), [place] coronary artery: continue home meds (13) MDS (myelodysplastic syndrome): Myelodysplastic syndrome, pancytopenia: Admit WBC 2.9, hemoglobin 8.1, platelets 69. All similar to prior. (14) DM type 2 (diabetes mellitus, type 2): Patient says is controlled with diet at home. Monitor for now SSI PRN (15) DVT prophylaxis: Aspirin 81mg Holding further given platelets and liver disease Subjective Pt states she has some burning with urination. She states that she finished a course of abx prior to d/c from [facility], where she had been for rehab purposes. She was d/c'd on 11/02 and it was after she arrived home that she noted a return of the burning with urination. No other abd pain. No discharge. She states this is similar to UTI for her. Pt was directed to the ED after labs revealed a further elevation in her K level, which was the reason for the labs to be drawn. She states that she had mild n/v yesterday, but that there has been no emesis since [place] and her nausea is improved. She did eat a small amount of breakfast, but states that her appetite is low at baseline. Pt follows with Ghulam Shields with [facility] for her liver cancer/BRUNNER. She states she has paracentesis Q2-3 months when he abd fullness gets too uncomfortable. She states she had a paracentesis on 10/31. She does feel some distention at this time "but not too bad". Ongoing LE swelling. She states that the lasix helps some with the LE swelling, but not the abd swelling. She states she was on spironolactone, but that this was stopped while she was at [facility]. She is uncertain as to why. Review of [employer] suggests that pt had itching that was felt to be related to the spironolactone use. She is currently on hospice for her liver cancer. She has more abd fullness than pain at this time. Pt denies fever, SOB, chest pain, c/d, LE pain. Review of Systems Review of Systems: Pertinent positives and negatives reviewed in HPI--all others negative Physical Exam Constitutional: WD/WN, vitals as above Eyes: normal visual cooper by confrontation and + anicteric sclerae Neck: normal visual inspection and trachea midline Respiratory: normal respiratory effort, lungs clear to auscultation Cardiovascular: Rate/Rhythm: regular rate and regular rhythm Gastrointestinal (Abdomen): Inspection/Auscultation: + abdomen distended Percussion/Palpation: abdomen soft; abdomen nontender Musculoskeletal: Head/Neck/Chest: normocephalic and head atraumatic 1+ LE edema, peripheral pulses intact Skin: no rashes, warm and dry Neurologic: awake; not confused Speech / Cognition: normal speech Psychiatric: A+Ox3, euthymic affect Results & Data Vital Signs (Past 12 Hours) Vital Signs Temp Pulse Pulse Pulse Resp BP BP 11/07/19 11:16 36.7 C 62 16 143/70 H 11/07/19 07:35 36.9 C 52 L 18 147/63 H 11/07/19 07:00 51 L 11/07/19 05:14 55 L 11/07/19 03:49 36.7 C 72 20 118/41 L 11/07/19 02:45 36.7 C 63 16 159/65 H 11/07/19 02:31 53 L 14 148/31 H Pulse Ox 11/07/19 11:16 99 11/07/19 07:35 98 11/07/19 07:00 11/07/19 05:14 11/07/19 03:49 98 11/07/19 02:45 100 11/07/19 02:31 96 PG Care Time/CCT Total # of Minutes Spent Total Time Spent with Patient: Total time spent is greater than 50% in coordination of care (as documented) at patient's floor/unit and/or counseling patient: (1) CKD (chronic kidney disease) Chronic kidney disease stage: unspecified stage Qualified Code(s): N18.9 - Chronic kidney disease, unspecified
[2019-11-07] MEDS: HYDROCODONE/ACETAMINOPHEN 10/325 TAB PO PRN (21:51)
[2019-11-08] MEDS: CHECK FENTANYL PATCH PLACEMENT SCH ×3 (00:01→16:00)
[2019-11-08] MEDS: LEVOTHYROXINE SODIUM 25 MCG TABLET PO SCH (05:41)
[2019-11-08 05:53] LABS: Hematocrit (blood only) 22.5 % (37-47); Hemoglobin 7.5 g/dL (12.0-16.0); Mean Corpuscular Hemoglobin 32.9 pg (25-34); Mean Corpuscular Hgb Conc 33.3 g/dL (32-36); Mean Corpuscular Volume 98.7 fL (80-100); Mean Platelet Volume 12.7 fL (7.4-10.4); Platelet Count 52 K/uL (130-400); RDW Coefficient of Variation 16.6 % (11.5-14.5); RDW Standard Deviation 59.3 fL (36.4-46.3); Red Blood Count 2.28 M/uL (4.2-5.4); White Blood Count 1.79 K/uL (4.8-10.8)
[2019-11-08 06:00] LABS: Eosinophils # (auto) 0.04 K/uL (0-0.5); Eosinophils % (auto) 2.2 %; Giant Platelets 2+; Immature Granulocytes # (auto) 0.01 K/uL (0.00-0.02); Immature Granulocytes % (auto) 0.6 %; Lymphocytes # (auto) 0.38 K/uL (1.2-3.4); Lymphocytes % (auto) 21.2 %; Monocytes # (auto) 0.25 K/uL (0.11-0.59); Neutrophils # (auto) 1.11 K/uL (1.4-6.5)
[2019-11-08 06:02] LABS: BUN Creatinine Ratio 18.9 (10-20); Creatinine Clr Calc Pharmacy 18.2 ml/min; Est GFR (African American) 23.2; Magnesium 1.5 mg/dl (1.8-2.4); Potassium 5.8 mmol/L (3.5-5.1)
[2019-11-08] MEDS: FUROSEMIDE 40 MG TAB PO SCH (09:42)
[2019-11-08] MEDS: LOSARTAN POTASSIUM 50 MG TAB PO SCH (09:42)
[2019-11-08] MEDS: PANTOprazole 40 MG TAB PO SCH ×2 (09:42→20:48)
[2019-11-08] MEDS: ASPIRIN 81 MG ECTAB PO SCH (09:42)
[2019-11-08] MEDS: ISOSORBIDE MONO EXTENDED REL 60 MG TABCR PO SCH (09:42)
[2019-11-08] MEDS: MAGNESIUM OXIDE 400 MG TAB PO SCH (09:42)
[2019-11-08] MEDS: METOPROLOL TARTRATE 50 MG TAB PO SCH ×2 (09:43→20:47)
[2019-11-08] MEDS ORDERED: FLUCONAZOLE 50 MG TAB PO ONE (14:19)
--- NOTE | 2019-11-08 14:29 | Hospitalist Progress Note ---
Date of Service November 08, 2019 Assessment & Plan (1) Hyperkalemia: 84-year-old female was admitted on 07 November 2019 for hyperkalemia. Hyperkalemia: Admit potassium 6.4, reports 7.1 on outpt labs. Also has had some recent vomiting. - In the ED, afebrile, bradycardic, at times tachypneic, with rather good blood pressure and room SpO2. Has pancytopenia. Troponin 0.022. EKG is sinus bradycardia rate 54 with LBBB (history of latter). Normal intervals and non- peaked T waves. pCXR noted cardiomegaly without acute abnormality. - In ED, treated with calcium gluconate, sodium bicarbonate, insulin dextrose, and normal saline IVF. - Albumin 25% and Lasix 40 mg IV combo on admission Possibly related to recent spironolactone use, was d/c'd late last week by GI Improving (2) Anemia: Baseline anemia, however dropped to 7.5 today Pt states several months of BRBPR, hemoccult pending d/c aspirin given bleeding and current prognosis Will monitor Hb tomorrow Hesitant to transfuse given fluid overload issues (3) Hypomagnesemia: Replace PO and monitor (4) Urinary symptom or sign: Burning, similar to recent UTI Finished course of abx last week UA neg Possible post-abx yeast infection, pt with hx of same will tx with single dose fluconazole (5) Chronic diastolic (congestive) heart failure: Patient has noted increased leg swelling recently. On hospice for presumed liver cancer. CTAP noted for worsening mass s/p paracentesis on 10/31 Outpatient PCP note mentions dry weight around 170 pounds (77 kg). Admit weight 92.7 kg. (6) Peripheral edema: Resume lasix (7) Nonalcoholic steatohepatitis (BRUNNER): Followed by [facility] (8) Ascites: s/p paracentesis on 10/31 Lasix is not generally the most effective for this Spironolactone stopped by GI recently, ?? related to itching?? per PCP note Was started 07/2019 by CHF clinic and noted to have new itching a few weeks later by PCP Pt states this was stopped by [facility] while she was at [facility], possibly causing hyperK?? (9) Liver mass: Hospice for this, pt concerned about ongoing care issues for other medical issues if on hospice Discussed that hospice does not mean that she cannot seek care for other or new medical issues, pt will discuss with family at bedside during this conversation CTAP noted (10) CKD (chronic kidney disease): Though not listed in previous records, admit Cr 2.2 appears to be a progressive worsening over the past few months. BUN elevated at 45 but also around baseline. - Will need close monitoring due to Lasix administration as above. (11) Elevated TSH: Elevated TSH: Admit TSH 5.7, free T4 1.4. Could not find discussion of hypothyroidism in brief search of outpatient medical record. However, will continue her listed home levothyroxine. (12) Hypertension: Holding home meds for asx bradycardia BP stable in 140s, monitor (13) CAD (coronary artery disease), [place] coronary artery: continue home meds (14) MDS (myelodysplastic syndrome): Myelodysplastic syndrome, pancytopenia: Admit WBC 2.9, hemoglobin 8.1, platelets 69. All similar to prior. (15) DM type 2 (diabetes mellitus, type 2): Patient says is controlled with diet at home. Monitor for now SSI PRN (16) DVT prophylaxis: Aspirin 81mg--hold starting 11/09 Holding more aggressive DVT proph given platelets, Hb, and liver disease PT/OT pending Pt was d/c'd from [facility] for rehab on 11/02 Subjective Pt still with burning with urination. States she has had issues with post-abx yeast infections in the past. Pt is feeling overall improved. Low appetite, but tolerating what she does eat. Ongoing issues with abd and LE swelling, which are not worse or better than yesterday. Pt is concerned today because she was told that if she continues with hospice she cannot see any of her other doctors, including her PCP. She is considering d/c of hospice services due to this. Pt states she has been on aspirin since she had stents placed. She states that she has been having BRBPR for the last 6-7 months, at times with clots. She did note a small amount last night with a small bowel movement. It was less than usual, but this does happen with most bowel movements. Does not seem to happen independently of bowel movements. Pt denies fever, SOB, chest pain, abd pain, n/v/c/d, LE pain. Review of Systems Review of Systems: Pertinent positives and negatives reviewed in HPI--all others negative Physical Exam Constitutional: WD/WN, vitals as above Eyes: normal visual cooper by confrontation and + anicteric sclerae Neck: normal visual inspection and trachea midline Respiratory: normal respiratory effort, lungs clear to auscultation Cardiovascular: Rate/Rhythm: regular rate and regular rhythm Gastrointestinal (Abdomen): Inspection/Auscultation: + abdomen distended Percussion/Palpation: abdomen soft; abdomen nontender Musculoskeletal: Head/Neck/Chest: normocephalic and head atraumatic b/l 1+ LE edema Skin: no rashes, warm and dry Neurologic: awake; not confused Speech / Cognition: normal speech Psychiatric: A+Ox3, euthymic affect Results & Data Vital Signs (Past 12 Hours) Vital Signs Temp Pulse Pulse Resp BP BP Pulse Ox 11/08/19 11:23 36.4 C L 48 L 17 165/65 H 97 11/08/19 09:00 52 L 11/08/19 07:11 36.6 C 59 L 18 154/62 H 98 11/08/19 03:15 57 L 11/08/19 03:03 36.5 C 60 18 161/74 H 97 PG Care Time/CCT Total # of Minutes Spent Total Time Spent with Patient: Total time spent is greater than 50% in coordination of care (as documented) at patient's floor/unit and/or counseling patient: (1) CKD (chronic kidney disease) Chronic kidney disease stage: unspecified stage Qualified Code(s): N18.9 - Chronic kidney disease, unspecified
[2019-11-09] MEDS: HYDROCODONE/ACETAMINOPHEN 10/325 TAB PO PRN ×2 (00:07→22:34)
[2019-11-09] MEDS: CHECK FENTANYL PATCH PLACEMENT SCH ×4 (00:08→23:31)
[2019-11-09 05:55] LABS: Hematocrit (blood only) 23.2 % (37-47); Hemoglobin 7.7 g/dL (12.0-16.0); Mean Corpuscular Hemoglobin 32.8 pg (25-34); Mean Corpuscular Hgb Conc 33.2 g/dL (32-36); Mean Corpuscular Volume 98.7 fL (80-100); Mean Platelet Volume 12.1 fL (7.4-10.4); Platelet Count 58 K/uL (130-400); RDW Coefficient of Variation 16.5 % (11.5-14.5); RDW Standard Deviation 59.6 fL (36.4-46.3); Red Blood Count 2.35 M/uL (4.2-5.4); White Blood Count 2.35 K/uL (4.8-10.8)
[2019-11-09] MEDS: LEVOTHYROXINE SODIUM 25 MCG TABLET PO SCH (06:10)
[2019-11-09 06:12] LABS: Basophils # (auto) 0.01 K/uL (0-0.2); Basophils % (auto) 0.4 %; Eosinophils # (auto) 0.08 K/uL (0-0.5); Eosinophils % (auto) 3.4 %; Giant Platelets 2+; Immature Granulocytes # (auto) 0.01 K/uL (0.00-0.02); Immature Granulocytes % (auto) 0.4 %; Lymphocytes # (auto) 0.49 K/uL (1.2-3.4); Lymphocytes % (auto) 20.9 %; Monocytes % (auto) 12.8 %; Neutrophils # (auto) 1.46 K/uL (1.4-6.5); Neutrophils % (auto) 62.1 %
[2019-11-09 06:25] LABS: BUN Creatinine Ratio 19.5 (10-20); Creatinine Clr Calc Pharmacy 19.1 ml/min; Est GFR (African American) 24.8; Est GFR (Non-African American) 21.4; Potassium 5.6 mmol/L (3.5-5.1)
--- NOTE | 2019-11-09 06:48 | Billing Data ---
Date of Service November 09, 2019 Coding Level of Care Code 16460 Initial Inpt Care Lvl 3
[2019-11-09] MEDS: FUROSEMIDE 40 MG TAB PO SCH (09:07)
[2019-11-09] MEDS: MAGNESIUM OXIDE 400 MG TAB PO SCH (09:08)
[2019-11-09] MEDS: ISOSORBIDE MONO EXTENDED REL 60 MG TABCR PO SCH (09:08)
[2019-11-09] MEDS: METOPROLOL TARTRATE 50 MG TAB PO SCH ×2 (09:09→21:32)
[2019-11-09] MEDS: LOSARTAN POTASSIUM 50 MG TAB PO SCH (09:09)
[2019-11-09] MEDS: PANTOprazole 40 MG TAB PO SCH ×2 (09:09→21:32)
[2019-11-09] MEDS: fentaNYL 12 MCG/HR TDSY TD SCH (10:15)
--- NOTE | 2019-11-09 14:33 | Hospitalist Progress Note ---
Date of Service November 09, 2019 Assessment & Plan (1) Hyperkalemia: 84-year-old female was admitted on 07 November 2019 for hyperkalemia. Hyperkalemia: Admit potassium 6.4, reports 7.1 on outpt labs. Also has had some recent vomiting. - In the ED, afebrile, bradycardic, at times tachypneic, with rather good blood pressure and room SpO2. Has pancytopenia. Troponin 0.022. EKG is sinus bradycardia rate 54 with LBBB (history of latter). Normal intervals and non- peaked T waves. pCXR noted cardiomegaly without acute abnormality. - In ED, treated with calcium gluconate, sodium bicarbonate, insulin dextrose, and normal saline IVF. - Albumin 25% and Lasix 40 mg IV combo on admission Possibly related to recent spironolactone use, was d/c'd late last week by GI Levels almost back to WNL (2) Peripheral edema: Continue lasix Swelling is much improved today, which was likely helped by ambulating with PT/OT Advised to ask for walks (3) Chronic diastolic (congestive) heart failure: Patient has noted increased leg swelling recently. On hospice for presumed liver cancer. CTAP noted for worsening mass s/p paracentesis on 10/31 Outpatient PCP note mentions dry weight around 170 pounds (77 kg). Admit weight 92.7 kg. (4) Nonalcoholic steatohepatitis (BRUNNER): Followed by [facility] (5) Ascites: s/p paracentesis on 10/31 Lasix is not generally the most effective for this Spironolactone stopped by GI recently, likely related to hyperK however there is no access to [facility] notes Was started 07/2019 by CHF clinic and noted to have new itching a few weeks later by PCP (6) Liver mass: Hospice for this, pt concerned about ongoing care issues for other medical issues if on hospice Discussed that hospice does not mean that she cannot seek care for other or new medical issues, pt will discuss with family at bedside during this conversation on 11/08 CTAP noted (7) CKD (chronic kidney disease): Though not listed in previous records, admit Cr 2.2 appears to be a progressive worsening over the past few months. BUN elevated at 45 but also around baseline. - Will need close monitoring due to Lasix administration as above. (8) Elevated TSH: Elevated TSH: Admit TSH 5.7, free T4 1.4. Could not find discussion of hypothyroidism in brief search of outpatient medical record. However, will continue her listed home levothyroxine. (9) Hypertension: Holding home meds for asx bradycardia BP stable in 140s, monitor (10) CAD (coronary artery disease), [place] coronary artery: continue home meds (11) MDS (myelodysplastic syndrome): Myelodysplastic syndrome, pancytopenia: Admit WBC 2.9, hemoglobin 8.1, platelets 69. All similar to prior. Now with lower Hb that is improved today Hesitant to transfuse given fluid overload issues, will monitor for further improvement (12) GIB (gastrointestinal bleeding): Described by pt as an ongoing issue with brittani blood in stool for the last 6-7 months Hemoccult + d/c aspirin 81mg This may be due to her onc status, but I am sure that the aspirin is not helping matters Pt follows with GI She would not be a candidate for scopes at this point, will not reconsult Subjective Burning with urination is still present "a little bit" but better. Pt is feeling overall improved. Low appetite, but tolerates what she does eat. Ongoing issues with abd swelling, which is stable. She feels her LE swelling is improved some today. Pt denies fever, SOB, chest pain, abd pain, n/v/c/d, LE pain. Review of Systems Review of Systems: Pertinent positives and negatives reviewed in HPI--all others negative Physical Exam Constitutional: WD/WN, vitals as above Eyes: normal visual cooper by confrontation and + anicteric sclerae Neck: normal visual inspection and trachea midline Respiratory: normal respiratory effort, lungs clear to auscultation Cardiovascular: Rate/Rhythm: regular rate and regular rhythm Gastrointestinal (Abdomen): Inspection/Auscultation: + abdomen distended Percussion/Palpation: abdomen soft; abdomen nontender Musculoskeletal: Head/Neck/Chest: normocephalic and head atraumatic Improve d LE edema, trace pitting Skin: no rashes, warm and dry Neurologic: awake; not confused Speech / Cognition: normal speech Psychiatric: A+Ox3, euthymic affect Results & Data Vital Signs (Past 12 Hours) Vital Signs Temp Pulse Pulse Resp BP Pulse Ox 11/09/19 11:44 36.5 C 64 18 153/61 H 92 11/09/19 08:11 36.7 C 50 L 18 155/57 H 97 11/09/19 04:21 36.7 C 54 L 18 151/58 H 97 11/09/19 02:28 54 L PG Care Time/CCT Total # of Minutes Spent Total Time Spent with Patient: Total time spent is greater than 50% in coordination of care (as documented) at patient's floor/unit and/or counseling patient: (1) CKD (chronic kidney disease) Chronic kidney disease stage: unspecified stage Qualified Code(s): N18.9 - Chronic kidney disease, unspecified
[2019-11-10] MEDS: LEVOTHYROXINE SODIUM 25 MCG TABLET PO SCH (06:44)
[2019-11-10 07:22] LABS: BUN Creatinine Ratio 20.5 (10-20); Calcium 8.1 mg/dl (8.5-10.1); Creatinine Clr Calc Pharmacy 20.6 ml/min; Est GFR (African American) 27.2; Est GFR (Non-African American) 23.5
[2019-11-10] MEDS: CHECK FENTANYL PATCH PLACEMENT SCH ×2 (07:56→15:14)
[2019-11-10] MEDS: LOSARTAN POTASSIUM 50 MG TAB PO SCH (07:56)
[2019-11-10] MEDS: ISOSORBIDE MONO EXTENDED REL 60 MG TABCR PO SCH (07:56)
[2019-11-10] MEDS: METOPROLOL TARTRATE 50 MG TAB PO SCH ×2 (07:58→21:03)
[2019-11-10] MEDS: FUROSEMIDE 40 MG TAB PO SCH (07:58)
[2019-11-10] MEDS: MAGNESIUM OXIDE 400 MG TAB PO SCH (07:58)
[2019-11-10] MEDS: PANTOprazole 40 MG TAB PO SCH ×2 (07:59→21:03)
[2019-11-10 14:35] LABS: Hematocrit (blood only) 27.5 % (37-47); Hemoglobin 9.3 g/dL (12.0-16.0); Mean Corpuscular Hemoglobin 33.3 pg (25-34); Mean Corpuscular Hgb Conc 33.8 g/dL (32-36); Mean Corpuscular Volume 98.6 fL (80-100); Mean Platelet Volume 12.9 fL (7.4-10.4); Platelet Count 68 K/uL (130-400); RDW Coefficient of Variation 16.2 % (11.5-14.5); RDW Standard Deviation 58.4 fL (36.4-46.3); Red Blood Count 2.79 M/uL (4.2-5.4); White Blood Count 3.61 K/uL (4.8-10.8)
[2019-11-10 14:55] LABS: BUN Creatinine Ratio 20.1 (10-20); Calcium 8.5 mg/dl (8.5-10.1); Creatinine Clr Calc Pharmacy 19.2 ml/min; Est GFR (Non-African American) 21.6
--- NOTE | 2019-11-10 16:58 | Hospitalist Progress Note ---
Date of Service November 10, 2019 Assessment & Plan (1) Hyperkalemia: 84-year-old female was admitted on 07 November 2019 for hyperkalemia. attributed to combination of Aldactone and Losartan as outpatient improving by holding Aldactone, down to 5.0 today will stop Losartan as well, substitute Hydralazine for BP control repeat labs in the AM, if K continues to go down then could be d/c to home transfer to medical floor today (2) Peripheral edema: Continue lasix 40mg PO daily, improving Cr stable, could consider higher dose since she won't be taking Aldactone again (3) Chronic diastolic (congestive) heart failure: Patient has noted increased leg swelling recently. On hospice for presumed liver cancer. CTAP noted for worsening mass s/p paracentesis on 10/31 Outpatient PCP note mentions dry weight around 170 pounds (77 kg). Admit weight 92.7 kg. likely that most of the fluid accumulation due to worsening liver cancer, steatohepatitis continue Lasix (4) Nonalcoholic steatohepatitis (BRUNNER): Followed by [facility] on hospice (5) Ascites: s/p paracentesis on 10/31 Lasix is not generally the most effective for this Spironolactone stopped by [facility] recently, likely related to hyperK however there is no access to [facility] notes will increase Lasix to 40mg BID (6) Liver mass: Hospice for this, pt concerned about ongoing care issues for other medical issues if on hospice Discussed that hospice does not mean that she cannot seek care for other or new medical issues, pt will discuss with family family updated on 11/10 (7) CKD (chronic kidney disease): GFR puts her baseline around stage IV Cr has remained stable, 1.9 to 2.0 with Lasix use (8) Elevated TSH: Elevated TSH: Admit TSH 5.7, free T4 1.4. Could not find discussion of hypothyroidism in brief search of outpatient medical record. However, will continue her listed home levothyroxine. (9) Hypertension: will stop Losartan due to hyper K start on Hydralazine 25mg TID with her Imdur 60mg (10) CAD (coronary artery disease), [place] coronary artery: continue home meds (11) MDS (myelodysplastic syndrome): Myelodysplastic syndrome, pancytopenia: Admit WBC 2.9, hemoglobin 8.1, platelets 69. All similar to prior. CBC on 11/10 shows all counts low but stable (12) GIB (gastrointestinal bleeding): Described by pt as an ongoing issue with brittani blood in stool for the last 6-7 months Hemoccult + d/c aspirin 81mg This may be due to her onc status, but I am sure that the aspirin is not helping matters Pt follows with GI Hb stable, actually up to 9.2 Subjective patient feeling fine, no new issues eating well, moving her bowels, they are a little loose, no vomiting or pain discussed her K level, coming down, was 5.0 this afternoon discussed that the Losartan could also be contributing in addition to the Aldactone will stop the Losartan in favor of Hydralazine monitor BP no chest pain, no dyspnea at rest or on exertion she feels strong enough to go home, will check labs in the morning labs show Hb 9, WBC 3k, Cr 2.05, K down to 5.0 when last checked Review of Systems Review of Systems: All systems reviewed & are unremarkable except as noted in HPI & below Physical Exam Constitutional: WD/WN, vitals as above Eyes: PERRL, conjunctivae normal, anicteric sclerae ENMT: external ear and nose normal, oropharynx normal Neck: trachea midline, no thyromegaly Respiratory: normal respiratory effort, lungs clear to auscultation Cardiovascular: RRR, no murmur, no edema Gastrointestinal (Abdomen): normal bowel sounds, soft, nontender, no hepatosplenomegaly Musculoskeletal: no cyanosis or clubbing, extremities motor strength 5/5 Skin: no rashes, warm and dry Neurologic: patellar DTR's 2+ bilat, sensation intact and PERRL, EOMI, accommodation nl, no face palsy, no dysarthria Psychiatric: A+Ox3, euthymic affect Lymphatic: no cervical or axillary lymphadenopathy Results & Data Vital Signs (Past 12 Hours) Vital Signs Temp Pulse Pulse Resp BP Pulse Ox 11/10/19 15:00 36.8 C 66 18 105/44 L 98 11/10/19 14:03 36.6 C 52 L 18 100/64 96 11/10/19 09:31 45 L 11/10/19 07:21 36.6 C 48 L 18 153/55 H 96 Laboratory Results Laboratory Results - last 24 hr 11/10/19 11/10/1919 06:30 07:38 13:45 WBC RBC Hgb Hct MCV MCH MCHC RDW Std Deviation RDW Coeff of [place]kin Plt Count MPV Sodium 143 141 Potassium 5.3 H 5.0 Chloride 113 H 112 H Carbon Dioxide 25 23 Anion Gap 5.0 6.0 BUN 39 H 41 H Creatinine 1.91 H 2.05 H Est Cr Clr Drug Dosing 20.6 19.2 Est GFR ( Amer) 27.2 25.0 Est GFR (Non-Af Amer) 23.5 21.6 BUN/Creatinine Ratio 20.5 H 20.1 H Glucose 121 H 191 H Calcium 8.1 L 8.5 11/10/19 13:45 WBC 3.61 L RBC 2.79 L Hgb 9.3 L Hct 27.5 L MCV 98.6 MCH 33.3 MCHC 33.8 RDW Std Deviation 58.4 H RDW Coeff of [place] 16.2 H Plt Count 68 L MPV 12.9 H Sodium Potassium Chloride Carbon Dioxide Anion Gap BUN Creatinine Est Cr Clr Drug Dosing Est GFR ( Amer) Est GFR (Non-Af Amer) BUN/Creatinine Ratio Glucose Calcium Medications Administered Current Inpatient Medications Hydrocodone Bitart/Acetaminophen ([place] 10/325) 1 tab PO TID PRN PRN Reason: Pain Stop: 11/21/19 03:02 Last Admin: 11/09/19 22:34 Dose: 1 tab Documented by: Fentanyl (Duragesic) 12 mcg TD Q72H [facility] Stop: 11/23/19 07:59 Last Admin: 11/09/19 10:15 Dose: 12 mcg Documented by: Furosemide (Lasix) 40 mg PO DAILY [facility] Stop: 12/07/19 08:59 Last Admin: 11/10/19 07:58 Dose: 40 mg Documented by: Hydralazine HCl (Apresoline) 25 mg PO TID [facility] Stop: 12/10/19 08:59 Last Admin: 11/10/19 13:02 Dose: 25 mg Documented by: Isosorbide Mononitrate (Imdur Extended Rel) 60 mg PO DAILY [facility] Stop: 12/07/19 08:59 Last Admin: 11/10/19 07:56 Dose: 60 mg Documented by: Levothyroxine Sodium (Synthroid) 25 mcg PO DAILYBB [facility] Stop: 12/07/19 06:29 Last Admin: 11/10/19 06:44 Dose: 25 mcg Documented by: Magnesium Oxide (Mag-Ox) 400 mg PO QAM [facility] Stop: 12/07/19 10:29 Last Admin: 11/10/19 07:58 Dose: 400 mg Documented by: Metoprolol Tartrate (Lopressor) 50 mg PO BID [facility] Stop: 12/07/19 08:59 Last Admin: 11/10/19 07:58 Dose: Not Given Documented by: Miscellaneous (Fentanyl Patch Remove & Waste) 1 ea N/A Q3D [facility] Stop: 12/09/19 07:58 Last Admin: 11/09/19 10:15 Dose: 1 ea Documented by: Miscellaneous (Fentanyl Patch Check Placement) 1 ea N/A QS [facility] Stop: 12/07/19 07:59 Last Admin: 11/10/19 15:14 Dose: 1 ea Documented by: Nitroglycerin (Nitrostat) 0.4 mg SL Q5M PRN PRN Reason: chest pain Stop: 12/07/19 03:02 Pantoprazole Sodium (Protonix) 40 mg PO BID [facility] Stop: 12/07/19 08:59 Last Admin: 11/10/19 07:59 Dose: 40 mg Documented by: Polyethylene Glycol (Miralax Powder Packet) 17 gm PO DAILY PRN PRN Reason: constipation Stop: 12/07/19 03:02 PG Care Time/CCT Total # of Minutes Spent Total Time Spent with Patient: Total time spent is greater than 50% in coordination of care (as documented) at patient's floor/unit and/or counseling patient: (1) CKD (chronic kidney disease) Chronic kidney disease stage: unspecified stage Qualified Code(s): N18.9 - Chronic kidney disease, unspecified
[2019-11-10] MEDS: HYDROCODONE/ACETAMINOPHEN 10/325 TAB PO PRN (21:03)
[2019-11-11] MEDS: CHECK FENTANYL PATCH PLACEMENT SCH ×4 (00:35→23:56)
[2019-11-11] MEDS: LEVOTHYROXINE SODIUM 25 MCG TABLET PO SCH (06:36)
[2019-11-11 07:58] LABS: BUN Creatinine Ratio 21.7 (10-20); Calcium 8.1 mg/dl (8.5-10.1); Creatinine Clr Calc Pharmacy 18.9 ml/min; Est GFR (African American) 24.1; Est GFR (Non-African American) 20.8
[2019-11-11] MEDS: FUROSEMIDE 40 MG TAB PO SCH (08:13)
[2019-11-11] MEDS: ISOSORBIDE MONO EXTENDED REL 60 MG TABCR PO SCH (08:13)
[2019-11-11] MEDS: MAGNESIUM OXIDE 400 MG TAB PO SCH (08:13)
[2019-11-11] MEDS: METOPROLOL TARTRATE 50 MG TAB PO SCH ×2 (08:14→20:12)
[2019-11-11] MEDS: PANTOprazole 40 MG TAB PO SCH ×2 (08:14→20:12)
--- NOTE | 2019-11-11 11:39 | Hospitalist Progress Note ---
Date of Service November 11, 2019 Assessment & Plan (1) Hyperkalemia: 84-year-old female was admitted on 07 November 2019 for hyperkalemia. attributed to combination of Aldactone and Losartan as outpatient improving by holding Aldactone, down to 5.0 yesterday and today stopped Losartan on 11/10, substitute Hydralazine for BP control K is stable today at 5.0 repeat labs in the AM stable medically for discharge, will need either 24 hour care at home with waiver service or may need to go to a SNF on hospice (2) Peripheral edema: Continue lasix 40mg PO daily, edema is better every day Cr stable (3) Chronic diastolic (congestive) heart failure: Patient has noted increased leg swelling recently. On hospice for presumed liver cancer. CTAP noted for worsening mass s/p paracentesis on 10/31 Outpatient PCP note mentions dry weight around 170 pounds (77 kg). Admit weight 92.7 kg. likely that most of the fluid accumulation due to worsening liver cancer, steatohepatitis continue Lasix (4) Nonalcoholic steatohepatitis (BRUNNER): Followed by [facility] on hospice (5) Ascites: s/p paracentesis on 10/31 Lasix is not generally the most effective for this Spironolactone stopped by [facility] recently, cannot resume due to hyperkalemia keep Lasix 40mg daily (6) Liver mass: Hospice for this, pt concerned about ongoing care issues for other medical issues if on hospice Discussed that hospice does not mean that she cannot seek care for other or new medical issues, pt will discuss with family family updated on 11/10 (7) CKD (chronic kidney disease): GFR puts her baseline around stage IV Cr has remained stable, 1.9 to 2.0 with Lasix use (8) Elevated TSH: Elevated TSH: Admit TSH 5.7, free T4 1.4. Could not find discussion of h ypothyroidism in brief search of outpatient medical record. However, will continue her listed home levothyroxine. (9) Hypertension: will stop Losartan due to hyper K start on Hydralazine 25mg TID with her Imdur 60mg and metoprolol BP well controlled, recommend continuing Hydralazine on discharge and stopping the Losartan (10) CAD (coronary artery disease), [place] coronary artery: continue home meds (11) MDS (myelodysplastic syndrome): Myelodysplastic syndrome, pancytopenia: Admit WBC 2.9, hemoglobin 8.1, platelets 69. All similar to prior. CBC on 11/10 shows all counts low but stable (12) GIB (gastrointestinal bleeding): Described by pt as an ongoing issue with brittani blood in stool for the last 6-7 months Hemoccult + d/c aspirin 81mg This may be due to her onc status, but I am sure that the aspirin is not helping matters Pt follows with GI Hb stable, actually up to 9.2 on 11/10 Subjective patient continues to have a poor appetite, she said this has been ongoing, weeks prior to admission she feels very weak and uncertain about going home, feels like she needs more support she mentioned that she has waivers, unsure of how many hours of work they could provide d/w CM, they are unsure how much help could be provided patient may need to consider a SNF, she will not hear it labs checked, K stable at 5.0 blood pressure stable on Hydralazine Review of Systems Review of Systems: All systems reviewed & are unremarkable except as noted in HPI & below Constitutional: + fatigue and + weakness; no fever Respiratory: + dyspnea on exertion; no cough and no dyspnea Cardiovascular: no chest pain and no edema Gastrointestinal: no abdominal pain, no nausea, no vomiting, no constipation and no diarrhea/loose stools Genitourinary: no dysuria Physical Exam Constitutional: WD/WN, vitals as above Eyes: PERRL, conjunctivae normal, anicteric sclerae ENMT: external ear and nose normal, oropharynx normal Neck: trachea midline, no thyromegaly Respiratory: normal respiratory effort, lungs clear to auscultation Cardiovascular: RRR, no murmur, no edema Gastrointestinal (Abdomen): normal bowel sounds, soft, nontender, no hepatosplenomegaly Musculoskeletal: Head/Neck/Chest: normocephalic and head atraumatic Extremities: + abnormal strength (generalized weakness) Skin: no rashes, warm and dry Neurologic: patellar DTR's 2+ bilat, sensation intact and PERRL, EOMI, accommodation nl, no face palsy, no dysarthria Psychiatric: A+Ox3, euthymic affect Lymphatic: no cervical or axillary lymphadenopathy Results & Data Vital Signs (Past 12 Hours) Vital Signs Temp Pulse Resp BP Pulse Ox 11/11/19 11:37 36.8 C 62 18 118/70 98 11/11/19 07:41 36.8 C 53 L 18 129/46 L 97 Laboratory Results Laboratory Results - last 24 hr 11/11/19 06:52 Sodium 142 Potassium 5.0 Chloride 113 H Carbon Dioxide 24 Anion Gap 6.0 BUN 46 H Creatinine 2.11 H Est Cr Clr Drug Dosing 18.9 Est GFR ( Amer) 24.1 Est GFR (Non-Af Amer) 20.8 BUN/Creatinine Ratio 21.7 H Glucose 137 H Calcium 8.1 L Medications Administered Current Inpatient Medications Hydrocodone Bitart/Acetaminophen (Strawn 10/325) 1 tab PO TID PRN PRN Reason: Pain Stop: 11/21/19 03:02 Last Admin: 11/10/19 21:03 Dose: 1 tab Documented by: Fentanyl (Duragesic) 12 mcg TD Q72H [facility] Stop: 11/23/19 07:59 Last Admin: 11/09/19 10:15 Dose: 12 mcg Documented by: Furosemide (Lasix) 40 mg PO DAILY [facility] Stop: 12/07/19 08:59 Last Admin: 11/11/19 08:13 Dose: 40 mg Documented by: Hydralazine HCl (Apresoline) 25 mg PO TID [facility] Stop: 12/10/19 08:59 Last Admin: 11/11/19 20:11 Dose: 25 mg Documented by: Isosorbide Mononitrate (Imdur Extended Rel) 60 mg PO DAILY ANGELA Stop: 12/07/19 08:59 Last Admin: 11/11/19 08:13 Dose: 60 mg Documented by: Levothyroxine Sodium (Synthroid) 25 mcg PO DAILYBB [facility]GEL[facility] Stop: 12/07/19 06:29 Last Admin: 11/11/19 06:36 Dose: 25 mcg Documented by: Magnesium Oxide (Mag-Ox) 400 mg PO QAM [facility] Stop: 12/07/19 10:29 Last Admin: 11/11/19 08:13 Dose: 400 mg Documented by: Metoprolol Tartrate (Lopressor) 50 mg PO BID [facility] Stop: 12/07/19 08:59 Last Admin: 11/11/19 20:12 Dose: 50 mg Documented by: Miscellaneous (Fentanyl Patch Remove & Waste) 1 ea N/A Q3D [facility] Stop: 12/09/19 07:58 Last Admin: 11/09/19 10:15 Dose: 1 ea Documented by: Miscellaneous (Fentanyl Patch Check Placement) 1 ea N/A QS [facility] Stop: 12/07/19 07:59 Last Admin: 11/11/19 15:17 Dose: 1 ea Documented by: Nitroglycerin (Nitrostat) 0.4 mg SL Q5M PRN PRN Reason: chest pain Stop: 12/07/19 03:02 Pantoprazole Sodium (Protonix) 40 mg PO BID [facility] Stop: 12/07/19 08:59 Last Admin: 11/11/19 20:12 Dose: 40 mg Documented by: Polyethylene Glycol (Miralax Powder Packet) 17 gm PO DAILY PRN PRN Reason: constipation Stop: 12/07/19 03:02 PG Care Time/CCT Total # of Minutes Spent Total Time Spent with Patient: Total time spent is greater than 50% in coordination of care (as documented) at patient's floor/unit and/or counseling patient: (1) CKD (chronic kidney disease) Chronic kidney disease stage: unspecified stage Qualified Code(s): N18.9 - Chronic kidney disease, unspecified
[2019-11-12] MEDS: HYDROCODONE/ACETAMINOPHEN 10/325 TAB PO PRN (01:46)
[2019-11-12] MEDS: LEVOTHYROXINE SODIUM 25 MCG TABLET PO SCH (06:15)
[2019-11-12 07:21] LABS: BUN Creatinine Ratio 18.9 (10-20); Calcium 8.3 mg/dl (8.5-10.1); Est GFR (African American) 21.3; Est GFR (Non-African American) 18.4; Potassium 5.2 mmol/L (3.5-5.1)
[2019-11-12] MEDS: fentaNYL 12 MCG/HR TDSY TD SCH (07:45)
[2019-11-12] MEDS: ISOSORBIDE MONO EXTENDED REL 60 MG TABCR PO SCH (07:49)
[2019-11-12] MEDS: FUROSEMIDE 40 MG TAB PO SCH (07:49)
[2019-11-12] MEDS: MAGNESIUM OXIDE 400 MG TAB PO SCH (07:50)
[2019-11-12] MEDS: PANTOprazole 40 MG TAB PO SCH (07:50)
[2019-11-12] MEDS: CHECK FENTANYL PATCH PLACEMENT SCH (07:51)
[2019-11-12] MEDS: METOPROLOL TARTRATE 50 MG TAB PO SCH (07:51)
--- NOTE | 2019-11-14 22:31 | Discharge Summary ---
Date of Service November 12, 2019 Admission HPI Per Admitting Provider 84-year-old female presents at the request of her doctor for an elevated potassium. She says that she had some routine blood work done at [facility] and was told that her potassium was 7. Otherwise, patient does not seem to have any acute medical concerns. She does note she was recently admitted to [facility] for about 3.5 weeks for rehabilitation regarding her leg swelling. She was just discharged home this past Tuesday 20Dec. She says that she lives in an independent living facility but still needs some help with ADLs. She notes she continues to have nausea with most meals and occasional emesis. Says that she has no real appetite anymore, though she does like eating about three radishes per day (says it is better than snickers bars). Also mentions that she was recently told she had masses on her liver but she does not really wish to have these thoroughly evaluated. She is presently on hospice. She does say that she has some left upper quadrant regional abdominal pain that is not n ew. She attributes it to her ascites for which she gets a paracentesis about every month, most recently back on October 31. - Past medical history includes hypertension, CAD, ACS, diabetes, liver c irrhosis, myelodysplastic syndrome, lower extremity edema, chronic diastolic congestive heart failure, pseudoaneurysm of the right femoral artery, pancytopenia, osteoarthritis, hemorrhoids. - Past surgical history includes aortic valve surgery (? TAVR), coronary stent, hysterectomy, lumbar fusion - Social history includes denying tobacco or alcohol use. Lives at home alone. Principal Diagnosis hyperkalemia Discharge Exam Constitutional: WD/WN, vitals as above Eyes: PERRL, conjunctivae normal, anicteric sclerae ENMT: external ear and nose normal, oropharynx normal Neck: trachea midline, no thyromegaly Respiratory: normal respiratory effort, lungs clear to auscultation Cardiovascular: RRR, no murmur, no edema Gastrointestinal (Abdomen): normal bowel sounds, soft, nontender, no hepatosplenomegaly Musculoskeletal: Head/Neck/Chest: normocephalic and head atraumatic Extremities: + abnormal strength (generalized weakness) Skin: no rashes, warm and dry Neurologic: patellar DTR's 2+ bilat, sensation intact and PERRL, EOMI, accommodation nl, no face palsy, no dysarthria Psychiatric: A+Ox3, euthymic affect Lymphatic: no cervical or axillary lymphadenopathy Discharge Data Allergies Allergy/AdvReac Type Severity Reaction Status Date / Time nortriptyline Allergy Intermediate RASH Verified 11/06/19 22:54 duloxetine Allergy Unknown GI SYMPTOMS Verified 11/06/19 22:54 gabapentin Allergy Unknown DIZZINESS Verified 11/06/19 22:54 metformin Allergy Unknown DIARRHEA Verified 11/06/19 22:54 niacin Allergy Unknown SWELLING Verified 11/06/19 22:54 nitrofurantoin Allergy Unknown MYALGIA Verified 11/06/19 22:54 venlafaxine Allergy Unknown GI SYMPTOMS Verified 11/06/19 22:54 lisinopril AdvReac Mild COUGH Verified 11/06/19 22:54 Consultations 11/07/19 00:05 ED Decision to Admit Stat 11/07/19 03:03 Consult Case Management - Discharge Planning Routine Ordered Studies 11/06/19 22:26 CT abd pelvis wo con Urgent Hospital Course (1) Hyperkalemia: 84-year-old female was admitted on 07 November 2019 for hyperkalemia. attributed to combination of Aldactone and Losartan as outpatient improving by holding Aldactone, down to 5.0 yesterday and today stopped Losartan on 11/10, substitute Hydralazine for BP control K is stable. stable medically for discharge, patient and family decided on discharge to home with home health. (2) Peripheral edema: Continue lasix 40mg PO daily, edema is better every day Cr stable (3) Chronic diastolic (congestive) heart failure: Patient has noted increased leg swelling recently. On hospice for presumed liver cancer. CTAP noted for worsening mass s/p paracentesis on 10/31 Outpatient PCP note mentions dry weight around 170 pounds (77 kg). Admit weight 92.7 kg. likely that most of the fluid accumulation due to worsening liver cancer, steatohepatitis continue Lasix (4) Nonalcoholic steatohepatitis ([place]UNNER): Followed by [facility] (5) Ascites: s/p paracentesis on 10/31 Lasix is not generally the most effective for this Spironolactone stopped by GI recently, cannot resume due to hyperkalemia keep Lasix 40mg daily (6) Liver mass: Hospice for this, pt concerned about ongoing care issues for other medical issues if on hospice Discussed that hospice does not mean that she cannot seek care for other or new medical issues, pt will discuss with family family updated on 11/10 (7) CKD (chronic kidney disease): GFR puts her baseline around stage IV Cr has remained stable, 1.9 to 2.0 with Lasix use (8) Elevated TSH: Elevated TSH: Admit TSH 5.7, free T4 1.4. Could not find discussion of hypothyroidism in brief search of outpatient medical record. However, will continue her listed home levothyroxine. (9) Hypertension: will stop Losartan due to hyper K start on Hydralazine 25mg TID with her Imdur 60mg and metoprolol BP well controlled, recommend continuing Hydralazine on discharge and stopping the Losartan (10) CAD (coronary artery disease), [place] coronary artery: continue home meds (11) MDS (myelodysplastic syndrome): Myelodysplastic syndrome, pancytopenia: Admit WBC 2.9, hemoglobin 8.1, platelets 69. All similar to prior. CBC on 11/10 shows all counts low but stable (12) GIB (gastrointestinal bleeding): Described by pt as an ongoing issue with brittani blood in stool for the last 6-7 months Hemoccult + d/c aspirin 81mg This may be due to her onc status, but I am sure that the aspirin is not helping matters Pt follows with GI Hb stable, actually up to 9.2 on 11/10 Total Time Total Time Spent Total Time Spent (In Minutes): 32 Total Time Includes: Examination of the Patient, Discharge Planning and Medication Reconciliation Discharge Plan Discharge Items Patient Disposition: Home - Home Health Services Reason For Visit: HYPERKALEMIA Discharge Diagnosis: hyperkalemia Activity: Resume your previous activity Non-emergency contact: Primary Care Provider Call non-emergency contact if: you have any medication questions Follow-up/Referrals: Tony Arzola MD [Primary Care Provider] - 11/20/19 1:30 pm (Please, follow up at Dr. Arzola's office with his associate, Leora GAN, on TuesdayNovember 20 at 1:30 pm. *If you need to change this appointment, call their office at [phone].) Diet: Regular Addtl Attending Provider Instructions: You have been hospitalized for an acute medical problem. During your stay at [facility], we have made an effort to correct the problem that brought you to the hospital while keeping you as comfortable as possible. Medications were used to bring your condition under control and your discharge instructions will include directions for any medications you should take after leaving the hospital. Please make sure you see your Primary Care Provider as part of your follow up plan. Pending Studies at Discharge: No Stand-Alone Forms: [facility], Smoking Cessation Medications and DC Order Prescriptions: New hydralazine 25 mg Tablet 25 mg PO TID Qty: 90 RF: 0 magnesium oxide 400 mg (241.3 mg magnesium) Tablet 400 mg PO QAM Qty: 30 RF: 0 Continued isosorbide mononitrate 60 mg tablet extended release 24 hr 60 mg PO DAILY Qty: 90 RF: 3 levothyroxine 25 mcg tablet 25 mcg PO DAILY Qty: 90 RF: 3 metoprolol tartrate 50 mg tablet 50 mg PO BID Qty: 180 RF: 3 nitroglycerin 0.4 mg tablet, sublingual 0.4 mg SL Q5M PRN (Reason: chest pain) Qty: 25 RF: 2 pantoprazole 40 mg tablet,delayed release (DR/EC) 40 mg PO BID Qty: 180 RF: 1 hydrocodone-acetaminophen [[place]] 10-325 mg tablet 1 tab PO TID PRN (Reason: Pain) Qty: 20 RF: 0 furosemide 40 mg tablet 40 mg PO DAILY Qty: 90 RF: 3 polyethylene glycol 3350 [Miralax] 17 gram powder in packet 17 gm PO DAILY PRN (Reason: constipation) RF: 0 fentanyl 12 mcg/hr Patch 72 Hour 1 patch TRANSDERMAL Q72H RF: 0 Discontinued losartan 100 mg tablet 100 mg PO DAILY Qty: 90 RF: 1 aspirin 81 mg tablet,delayed release (DR/EC) 81 mg PO DAILY RF: 0 Discharge Orders: Discharge Order (Routine); Ordered 11/12/19 Ordered By: Malcolm Nails Admission Data Admit Date/Time: 11/07/19 01:49 Attending Provider: Malcolm Nails Admit Provider: Kyle Dumont Primary Care Provider: Tony Arzola Other Providers: [facility] ; Bryant Del Castillo Other Interventions: Discharge Summary Assessment (RN) Last Done: 11/12/19 15:12 DC Date/Time DO NOT enter until pt leaves facility: 11/12/19 16:16
== END 2019-11-12 16:16 | disposition home health service (06) | DRG 641 ==
LOC: ED 22:03 → 2N 11-07 01:49 → SUATTDRO 11-07 01:49 → 2N 11-07 02:31

== ENCOUNTER 2019-11-19 05:06 | Inpatient (IN) ==
[2019-11-19 05:42] LABS: Hematocrit (blood only) 28.5 % (37-47); Hemoglobin 9.5 g/dL (12.0-16.0); Mean Corpuscular Hemoglobin 33.2 pg (25-34); Mean Corpuscular Hgb Conc 33.3 g/dL (32-36); Mean Corpuscular Volume 99.7 fL (80-100); RDW Coefficient of Variation 15.6 % (11.5-14.5); RDW Standard Deviation 56.7 fL (36.4-46.3); Red Blood Count 2.86 M/uL (4.2-5.4); White Blood Count 10.59 K/uL (4.8-10.8)
[2019-11-19 05:47] LABS: Mean Platelet Volume 11.8 fL (7.4-10.4); Platelet Count 96 K/uL (130-400)
[2019-11-19 05:59] LABS: Basophils # (auto) 0.01 K/uL (0-0.2); Basophils % (auto) 0.1 %; Echinocytes 1+; Eosinophils # (auto) 0.02 K/uL (0-0.5); Eosinophils % (auto) 0.2 %; Immature Granulocytes # (auto) 0.02 K/uL (0.00-0.02); Immature Granulocytes % (auto) 0.2 %; Lymphocytes # (auto) 0.67 K/uL (1.2-3.4); Lymphocytes % (auto) 6.3 %; Monocytes # (auto) 0.64 K/uL (0.11-0.59); Neutrophils # (auto) 9.23 K/uL (1.4-6.5); Neutrophils % (auto) 87.2 %
[2019-11-19 06:21] LABS: Alanine Aminotransferase 23 U/L (12-78); Albumin Globulin Ratio 0.6 (0.9-2); Albumin Level 2.4 gm/dl (3.4-5.0); Alkaline Phosphatase 146 U/L (45-117); BUN Creatinine Ratio 21.8 (10-20); Bilirubin,Total 2.5 mg/dl (0.2-1); Blood Urea Nitrogen 52 mg/dl (7-18); Calcium 8.6 mg/dl (8.5-10.1); Carbon Dioxide 21 mmol/L (21-32); Chloride 108 mmol/L (98-107); Creatinine Clr Calc Pharmacy 19.1 ml/min; Est GFR (African American) 20.7; Est GFR (Non-African American) 17.9; Globulin 3.9 gm/dl (2.5-4.0); Glucose 172 mg/dl (70-99); Lipase 172 U/L (73-393); Sodium 136 mmol/L (136-145); Total Protein 6.3 gm/dl (6.4-8.2); Troponin I < 0.015 ng/ml (0-0.045)
[2019-11-19 06:52] LABS: Potassium 5.2 mmol/L (3.5-5.1)
--- NOTE | 2019-11-19 07:30 | XRay Report ---
XR chest 1V portable CLINICAL HISTORY: productive cough COMPARISON STUDY: 11/06/2019 FINDINGS: The heart is borderline enlarged. There is aortic valve stent graft. There are low lung vol umes. There is no lobar consolidation. There is no overt failure.[ IMPRESSION: Low lung volumes. No acute findings. ACT 112: Negative or not required by law. Electronically signed by: Francis Palomares M.D. 11/19/2019 7:29 AM
--- NOTE | 2019-11-19 07:35 | Emergency Department Note ---
Entered by Kingsley Almonte acting as a scribe for History of Present Illness General Chief complaint: Abdominal Pain Stated complaint: abdominal pain Time Seen by Provider: 11/19/19 05:17 Source: patient History of Present Illness Onset (ago): day(s) (last night) Location: abdomen Pain Consistency: + other (worsening) Maximum Pain Intensity: 10 Associated symptoms: + other (Positive for SOB and leg swelling.) The patient is an 84 year old female who presents to the emergency department with complaints of worsening abdominal pain beginning last night. The patient states that she developed abdominal pain last night that worsened overnight. She notes that her pain started in her left side and spread to her mid abdomen. She also complains of SOB and leg swelling. She reports that she gets fluid removed from her abdomen every other month, and she states that she last got fluid taken off a month ago. She notes that she typically gets abdominal pain when she needs to have fluid taken off. She reports that she was in the hospital six days ago. Home Medications Home Medications Medication Instructions Recorded Confirmed Type isosorbide mononitrate 60 mg 60 mg PO DAILY #90 tab 04/17/19 11/19/19 Rx tablet,extended release 24 hr levothyroxine 25 mcg tablet 25 mcg PO DAILY #90 tab 06/05/19 11/19/19 Rx polyethylene glycol 3350 17 gram 17 gm PO DAILY PRN 06/07/19 11/19/19 History oral powder packet nitroglycerin 0.4 mg sublingual 0.4 mg SL Q5M PRN #25 tab 07/13/19 11/19/19 Rx tablet pantoprazole 40 mg tablet,delayed 40 mg PO BID #180 tab 09/27/19 11/19/19 Rx release hydrocodone 10 mg-acetaminophen 1 tab PO TID PRN #20 tab 10/09/19 11/19/19 Rx 325 mg tablet furosemide 40 mg tablet 40 mg PO DAILY #90 tab 11/05/19 11/19/19 Rx hydralazine 25 mg PO TID #90 tab 11/12/19 11/19/19 Rx magnesium oxide 400 mg PO QAM #30 tab 11/12/19 11/19/19 Rx fentanyl 12 mcg/hr transdermal 1 patch TRANSDERMAL Q72H #10 ea 11/16/19 11/19/19 Rx patch metoprolol tartrate 50 mg tablet 50 mg PO BID #180 tab 11/16/19 11/19/19 Rx Allergies Allergy/AdvReac Type Severity Reaction Status Date / Time nortriptyline Allergy Intermediate RASH Verified 11/19/19 06:11 duloxetine Allergy Unknown GI SYMPTOMS Verified 11/19/19 06:11 gabapentin Allergy Unknown DIZZINESS Verified 11/19/19 06:11 metformin Allergy Unknown DIARRHEA Verified 11/19/19 06:11 niacin Allergy Unknown SWELLING Verified 11/19/19 06:11 nitrofurantoin Allergy Unknown MYALGIA Verified 11/19/19 06:11 venlafaxine Allergy Unknown GI SYMPTOMS Verified 11/19/19 06:11 lisinopril AdvReac Mild COUGH Verified 11/19/19 06:11 Past Med/Surg History Medical History (Updated 11/19/19 @ 07:08 by Kingsley Almonte) Acute bronchitis (Acute) Anemia CAD (coronary artery disease), [place] coronary artery (Chronic 07/14/14) Chest pain with high risk of acute coronary syndrome (Acute 07/14/14) Diabetes (Acute) Hyperglycemia (Acute) Hyperglycemia (Acute) Liver cirrhosis MDS (myelodysplastic syndrome) (Chronic ~07/2002) Upper respiratory infection (Acute) Surgical History H/O percutaneous transluminal coronary angioplasty (Resolved) Hx of aortic valve replacement (Acute) pt states they did not remove her valve just added a second one Stented coronary artery (Chronic) Social History Preferred Language: Hungarian Communication Ability: Effective Visual Impairment: No Limitations Hearing Ability: Normal Customer Resolution Specialist Required: No Beliefs That Will Affect Care: None Current Living Situation: Alone Current Living Situation Comment: lives at home alone with hospice Feels Safe at Home: Yes Smoking Status: Former smoker Tobacco Type: cigarettes ; Second Hand Exposure: No ; Hx Alcohol Use: No Hx Substance Use: No Review of Systems See HPI for pertinent positives & negatives. and A total of 10 systems reviewed and were otherwise negative Physical Exam Vital Signs Vital Signs - 24 hr 11/19/19 05:12 11/19/19 05:38 11/19/19 06:01 Temperature 36.7 C Temperature Source Oral Pulse Rate 66 78 Pulse Rate [Apical] 62 Respiratory Rate 18 18 Blood Pressure 160/48 H Blood Pressure [Right Arm] 118/55 L Blood Pressure Mean 85 Blood Pressure Mean [Right Arm] 76 Pulse Oximetry 98 98 98 Oxygen Delivery Method Room Air Room Air Room Air Sepsis Recent Fever Within 48 Hours No Sepsis Action Taken by Nursing No Action Required HEENT: Head - normocephalic and atraumatic Pupils are equal, round, and reactive to light. Extraocular eye muscles are intact, and sclera are anicteric. Nose - moist nasal mucosa without discharge. Mouth - extremely dry buccal mucosa.. Oropharynx is nonerythematous and there is no tonsillar exudate or edema noted. Neck: Supple; no JVD or thyromegaly Heart: Heart sounds are distant regular rate and rhythm. There is a normal S1 and S2 with no murmurs, clicks, or gallops appreciated. Lungs: Clear to auscultation bilaterally with no wheezes, rales, or rhonchi. Diminished breath sounds in all lung cooper. Abdomen: Soft. Very distended abdomen with fluid wave from ascites. Extremities: No evidence of cyanosis and clubbing. There are easily palpable peripheral pulses. 4+ edema in legs. There is moderate erythematous about the lower extremities. Skin: warm and dry with good turgor and no rashes. Course Course 0530: The patient was evaluated in room A2. A complete history and physical examination were performed. Nursing notes and previous electronic medical records were reviewed. IV lock was established and labs were drawn as above. 0539: Per review of EMR, the patient's last paracentesis was on October 31, 2019. Discharged from the hospital on November 06 after having an episode of hyperkalemia. 0610: I updated the patient on the preliminary results that we had. 0702: I reevaluated and updated the patient. She is still coughing up mucus so I ordered a chest x-ray. 0707: Upon reevaluation, the patient is stable. I discussed the findings and the treatment plan with the patient. She expresses agreement and understanding. I spoke with Dr. Shields of the [facility] Hospitalist Service. The patient will be evaluated for further management. 0730: Chest x-ray shows no significant pulmonary pathology but it is quite obvious that the patient is unable to take a deep breath secondary to significant abdominal distention from ascites. Reevaluation(s) Reevaluation #1: I reviewed the patient's case with Dr. Shields - Hospitalist, [facility]. He will evaluate the patient for further management. Time: 07:07 Medical Decision Making Differential Diagnosis Differential diagnoses include: SBP, dehydration, hyperkalemia, CHF, and worsening GI bleeding. Medical Records Attestation: I reviewed the patient's medical records. Home Medications Current Medication List: was personally reviewed by me Laboratory Data Attestation: I reviewed the patient's lab results. Result diagrams: 11/19/19 05:23 11/19/19 06:28 Lab Results 11/19/19 11/19/19 11/19/19 Range/Units 05:23 05:23 06:28 WBC 10.59 (4.8-10.8) K/uL RBC 2.86 L (4.2-5.4) M/uL Hgb 9.5 L (12.0-16.0) g/dL Hct 28.5 L (37-47) % MCV 99.7 (80-100) fL MCH 33.2 (25-34) pg MCHC 33.3 (32-36) g/dL RDW Std Deviation 56.7 H (36.4-46.3) fL RDW Coeff of [place] 15.6 H (11.5-14.5) % Plt Count 96 L (130-400) K/uL MPV 11.8 H (7.4-10.4) fL Immature Gran % (Auto) 0.2 % Neut % (Auto) 87.2 % Lymph % (Auto) 6.3 % [place] % (Auto) 6.0 % Eos % (Auto) 0.2 % Baso % (Auto) 0.1 % Immature Gran # (Auto) 0.02 (0.00-0.02) K/uL Neut # (Auto) 9.23 H (1.4-6.5) K/uL Lymph # (Auto) 0.67 L (1.2-3.4) K/uL [place] # (Auto) 0.64 H (0.11-0.59) K/uL Eos # (Auto) 0.02 (0-0.5) K/uL Baso # (Auto) 0.01 (0-0.2) K/uL Echinocytes 1+ Sodium 136 (136-145) mmol/L Potassium 5.2 H (3.5-5.1) mmol/L Chloride 108 H (98-107) mmol/L Carbon Dioxide 21 (21-32) mmol/L Anion Gap 7.0 (3-11) BUN 52 H (7-18) mg/dl Creatinine 2.39 H (0.6-1.2) mg/dl Est Cr Clr Drug Dosing 19.1 ml/min Est GFR ( Amer) 20.7 Est GFR (Non-Af Amer) 17.9 BUN/Creatinine Ratio 21.8 H (10-20) Glucose 172 H (70-99) mg/dl Calcium 8.6 (8.5-10.1) mg/dl Total Bilirubin 2.5 H (0.2-1) mg/dl AST 33 (15-37) U/L ALT 23 (12-78) U/L Alkaline Phosphatase 146 H (45-117) U/L Troponin I < 0.015 (0-0.045) ng/ml Total Protein 6.3 L (6.4-8.2) gm/dl Albumin 2.4 L (3.4-5.0) gm/dl Globulin 3.9 (2.5-4.0) gm/dl Albumin/Globulin Ratio 0.6 L (0.9-2) Lipase 172 (73-393) U/L ECG Data Attestation: I personally reviewed and interpreted this ECG as follows: Indication: + abdominal pain Rate (beats per minute): 66 Rhythm: + normal sinus ECG Intervals/blocks: + Left bundle branch block ECG ST segments: no ST depression and no ST elevation Comparison ECG Date: from (11/06/2019) Change: no significant change Additional Comments: Significant artifact. Blood Pressure Blood Pressure Findings: Normal blood pressure Blood Pressure Disposition: did not require urgent referral MDM Narrative The patient is an 84 year old female who presents to the emergency department with complaints of worsening abdominal pain beginning last night. The patient has a history of ascites with monthly paracentesis. Her last one was performed on October 31. She presents to the emergency department stating that she is unable to eat anything because her abdomen is so distended. She also feels increasingly short of breath and describes increased pain in the abdomen. On laboratory studies, the patient does have an elevated creatinine and her potassium is slightly elevated again. On physical exam, patient has what seems like significantly worse lower extremity edema bilaterally with some erythema and weeping to the skin. I believe the patient will need to undergo acute paracentesis to improve her comfort. The patient's laboratory studies present like dehydration. The patient admits that she has not been eating or drinking anything because of the significant abdominal distention. She has a BUN creatinine ratio of 21.8. I discussed the case with the [facility] Hospitalist and they will evaluate for further management. Impression & Plan Ascites, Hyperkalemia, Bilateral lower extremity edema, Increase in creatinine Discharge Plan Visit Data Chief Complaint: Abdominal Pain Stated Complaint: abdominal pain ED Provider: Cookie Herrera Discharge Problem: Ascites, Hyperkalemia, Bilateral lower extremity edema, Increase in creatinine Patient Disposition: Being Evaluated by Hospitalist Forms Stand Alone Forms: My [facility] Prescriptions Prescriptions: No Action isosorbide mononitrate 60 mg tablet extended release 24 hr 60 mg PO DAILY Qty: 90 RF: 3 levothyroxine 25 mcg tablet 25 mcg PO DAILY Qty: 90 RF: 3 nitroglycerin 0.4 mg tablet, sublingual 0.4 mg SL Q5M PRN (Reason: chest pain) Qty: 25 RF: 2 pantoprazole 40 mg tablet,delayed release (DR/EC) 40 mg PO BID Qty: 180 RF: 1 hydrocodone-acetaminophen [[place]] 10-325 mg tablet 1 tab PO TID PRN (Reason: Pain) Qty: 20 RF: 0 furosemide 40 mg tablet 40 mg PO DAILY Qty: 90 RF: 3 fentanyl 12 mcg/hr patch 72 hour 1 patch TRANSDERMAL Q72H Qty: 10 RF: 0 metoprolol tartrate 50 mg tablet 50 mg PO BID Qty: 180 RF: 3 polyethylene glycol 3350 [Miralax] 17 gram powder in packet 17 gm PO DAILY PRN (Reason: constipation) RF: 0 hydralazine 25 mg Tablet 25 mg PO TID Qty: 90 RF: 0 magnesium oxide 400 mg (241.3 mg magnesium) Tablet 400 mg PO QAM Qty: 30 RF: 0 Referrals Referrals: Tony Arzola MD [Primary Care Provider] - Discharge Problem: Ascites Qualifiers: Ascites type: other type Qualified Code(s): R18.8 - Other ascites The scribe's documentation has been prepared under my direction and personally reviewed by me in its entirety. I confirm that the note above accurately r eflects all work, treatment, procedures, and medical decision making performed by me.
[2019-11-19] MEDS ORDERED: ACETAMINOPHEN 325 MG TAB PO PRN (09:22)
[2019-11-19] MEDS: PANTOprazole 40 MG TAB PO SCH ×2 (10:03→21:43)
[2019-11-19] MEDS: CHECK FENTANYL PATCH PLACEMENT SCH ×3 (10:03→23:42)
[2019-11-19] MEDS: FUROSEMIDE 40 MG TAB PO SCH (10:03)
[2019-11-19] MEDS: LEVOTHYROXINE SODIUM 25 MCG TABLET PO SCH (10:03)
[2019-11-19] MEDS: MAGNESIUM OXIDE 400 MG TAB PO SCH (10:03)
--- NOTE | 2019-11-19 11:22 | History & Physical Report ---
Date of Service November 19, 2019 Assessment & Plan (1) Liver cirrhosis: MELD score is around 22, no INR to use this admission Cr is getting worse which is likely poor prognostic sign making less urine, K is high at 5.2 discussed with patient that there is nothing to do, just try to manage symptoms she agrees with the goals of hospice, will meet with Palliative care she agrees that she needs to go to [facility] will order therapeutic paracentesis, discussed that we could potentially get a drain but may make her condition worse she is not eating well, has abdominal pain, very weak (2) Nonalcoholic steatohepatitis ([place]): lead to cirrhosis need to manage symptoms (3) Liver mass: hospice, no further work up planned (4) Ascites: therapeutic paracentesis for several liters on day of admission no diagnostic work up will see how fast her fluid accumulates will consider drain prior to discharge (5) Hyperkalemia: mild at 5.2 likely due to worsening renal function no longer on aldactone or ARB (6) Increase in creatinine: Cr trending upward, likely a poor prognostic sign retaining fluid despite being compliant with Lasix if she is developing hepatorenal syndrome then her life expectancy is even less History of Present Illness Chief Complaint: My abdomen hurts Primary Care Provider: Erick Arzola MD 84 yo female with h/o cirrhosis, liver mass, recurrent ascites, weakness who was recently hospitalized for hyperkalemia due to Spironolactone and Losartan, returns to the hospital several days after discharge due to being too weak and in too much pain. The patient had no energy at home, she could barely do anything to take care of herself. She was evaluated by therapy when she was here last week, recommendations were made for SNF but she refused. She had been on hospice but she revoked it in favor of home health and therapy. She failed quickly. Eating very poorly. Her ascites returned quickly as did her abdominal pain. She was experiencing dyspnea on exertion and then on rest. The pain is her abdomen was too much to bear, experiencing a lot of distension. Very brittani conversation with her about the cirrhosis and liver mass and going back on hospice. She agreed on admission that she is too weak for home, wants to go to [place] [facility]. She agrees to speak with palliative care. Allergies Allergy/AdvReac Type Severity Reaction Status Date / Time nortriptyline Allergy Intermediate RASH Verified 11/19/19 06:11 duloxetine Allergy Unknown GI SYMPTOMS Verified 11/19/19 06:11 gabapentin Allergy Unknown DIZZINESS Verified 11/19/19 06:11 metformin Allergy Unknown DIARRHEA Verified 11/19/19 06:11 niacin Allergy Unknown SWELLING Verified 11/19/19 06:11 nitrofurantoin Allergy Unknown MYALGIA Verified 11/19/19 06:11 venlafaxine Allergy Unknown GI SYMPTOMS Verified 11/19/19 06:11 lisinopril AdvReac Mild COUGH Verified 11/19/19 06:11 Home Medications Home Medications Medication Instructions Recorded Confirmed Type isosorbide mononitrate 60 mg 60 mg PO DAILY #90 tab 04/17/19 11/19/19 Rx tablet,extended release 24 hr levothyroxine 25 mcg tablet 25 mcg PO DAILY #90 tab 06/05/19 11/19/19 Rx polyethylene glycol 3350 17 gram 17 gm PO DAILY PRN 06/07/19 11/19/19 History oral powder packet nitroglycerin 0.4 mg sublingual 0.4 mg SL Q5M PRN #25 tab 07/13/19 11/19/19 Rx tablet pantoprazole 40 mg tablet,delayed 40 mg PO BID #180 tab 09/27/19 11/19/19 Rx release hydrocodone 10 mg-acetaminophen 1 tab PO TID PRN #20 tab 10/09/19 11/19/19 Rx 325 mg tablet furosemide 40 mg tablet 40 mg PO DAILY #90 tab 11/05/19 11/19/19 Rx hydralazine 25 mg PO TID #90 tab 11/12/19 11/19/19 Rx magnesium oxide 400 mg PO QAM #30 tab 11/12/19 11/19/19 Rx fentanyl 12 mcg/hr transdermal 1 patch TRANSDERMAL Q72H #10 ea 11/16/19 11/19/19 Rx patch metoprolol tartrate 50 mg tablet 50 mg PO BID #180 tab 11/16/19 11/19/19 Rx Past Med/Surg History Medical History (Updated 11/19/19 @ 12:52 by MALIK Enrique) Acute bronchitis (Acute) Anemia CAD (coronary artery disease), [place] coronary artery (Chronic 07/14/14) Chest pain with high risk of acute coronary syndrome (Acute 07/14/14) Diabetes (Acute) Goals of care, counseling/discussion Hyperglycemia (Acute) Hyperglycemia (Acute) Liver cirrhosis MDS (myelodysplastic syndrome) (Chronic ~07/2002) Upper respiratory infection (Acute) Surgical History H/O percutaneous transluminal coronary angioplasty (Resolved) Hx of aortic valve replacement (Acute) pt states they did not remove her valve just added a second one Stented coronary artery (Chronic) Social History Preferred Language: Armenian Communication Ability: Effective Visual Impairment: No Limitations Hearing Ability: Normal Making Department Preparer Required: No Beliefs That Will Affect Care: None marital status: / Current Living Situation: Alone Current Living Situation Comment: lives in an independent living- [facility] Other Information That Helps Us Care for You: No Feels Safe at Home: Yes Safety Concerns: Feels Safe At This Time Smoking Status: Former smoker Tobacco Type: cigarettes ; Do You Dip or Chew Tobacco: No ; Second Hand Exposure: No ; Hx Alcohol Use: No Hx Substance Use: No Review of Systems Review of Systems: All systems reviewed & are unremarkable except as noted in HPI & below Constitutional: + body aches, + fatigue, + malaise and + weakness; no fever, no chills and no sweats Respiratory: + dyspnea on exertion; no cough, no dyspnea and no wheezing Cardiovascular: + edema; no chest pain and no syncope Gastrointestinal: + abdominal pain and + bloating; no nausea, no vomiting, no constipation and no diarrhea/loose stools Musculoskeletal: + muscle weakness Physical Exam 2 Constitutional: WD/WN, vitals as above Eyes: PERRL, conjunctivae normal, anicteric sclerae ENMT: external ear and nose normal, oropharynx normal Neck: trachea midline, no thyromegaly Respiratory: normal respiratory effort, lungs clear to auscultation Cardiovascular: Rate/Rhythm: regular rate and regular rhythm Heart Sounds: normal S1 and normal S2; no murmur Vessels: no JVD Extremities: normal capillary refill and + edema Gastrointestinal (Abdomen): Inspection/Auscultation: + abdomen distended, normal bowel sounds and + abdominal edema Percussion/Palpation: + abdomen tender (diffuse), + ascites (+ fluid wave), + dullness to percussion and + fluid wave; no guarding and abdomen not rigid Musculoskeletal: no cyanosis or clubbing, extremities motor strength 5/5 Skin: no rashes, warm and dry Neurologic: patellar DTR's 2+ bilat, sensation intact and PERRL, EOMI, accommodation nl, no face palsy, no dysarthria Psychiatric: Orientation: alert and oriented x 3 Affect: + depressed affect Mood: + depressed mood Lymphatic: no cervical or axillary lymphadenopathy Results & Data Vital Signs (Past 12 Hours) Vital Signs Temp Pulse Pulse Pulse Resp BP BP 11/19/19 09:24 36.5 C 54 L 18 137/67 11/19/19 08:00 60 18 120/45 L 11/19/19 06:01 62 18 118/55 L 11/19/19 05:38 78 11/19/19 05:12 36.7 C 66 18 160/48 H Pulse Ox 11/19/19 09:24 98 11/19/19 08:00 96 11/19/19 06:01 98 11/19/19 05:38 98 11/19/19 05:12 98 Laboratory Results Laboratory Results - last 24 hr 11/19/19 23:48 Urine Color Dark Yellow Urine Appearance Cloudy A Urine pH 5.0 Ur Specific [place] 1.016 Urine Protein Negative Urine Glucose (UA) Negative Urine Ketones Negative Urine Blood Negative Urine Nitrite Negative Urine Bilirubin Negative Urine Urobilinogen Negative Ur Leukocyte Esterase 1+ H Urine WBC (Auto) >30 H Urine RBC (Auto) 0-4 U Hyaline Cast (Auto) >30 H U Epithel Cells (Auto) >30 H Urine Bacteria (Auto) 1+ H Urine Yeast Budding A Code Status & VTE Plan Code Status DNR VTE Prophylaxis Plan VTE Prophylaxis will be ordered: Yes PG Care Time/CCT Total # of Minutes Spent Total Time Spent with Patient: Total time spent is greater than 50% in coordination of care (as documented) at patient's floor/unit and/or counseling patient: (1) Ascites Ascites type: other type Qualified Code(s): R18.8 - Other ascites
[2019-11-19] MEDS: HYDROCODONE/ACETAMINOPHEN 10/325 TAB PO PRN ×2 (11:34→23:42)
--- NOTE | 2019-11-19 12:56 | Palliative Care Consultation ---
Date of Consultation November 19, 2019 Assessment & Plan (1) Goals of care, counseling/discussion: -84 year old female patient with advanced non-alcoholic liver disease, ascites, liver masses, and others, presented to the hospital today with increased abdominal pain and distention. CXR performed which shows restrictive lung due to large amount of ascites. Patient was admitted and is planned to have paracentesis tomorrow 11/20 per report. Patient's last paracentesis was 10/31, was in hospital last week for hyperkalemia. Patient was previously on hospice for her liver disease-- her liver masses are presumed cancer but patient and family declined biopsy or further workup for these in the past. Patient lives at home alone with some supplemental care, but she is having a more and more difficult time managing her health. She has increased weakness, more pain, overall declining condition. Last admission, patient revoked hospice and went home with home health as she thought she would have more care at home with home health. Now, palliative care team is consulted to establish goals of care and assist with planning. -Met with patient this morning in room 386-1. She is AA&O x4. C/o abdominal pain 02/21. Has fentanyl patch on right chest. Uses [place] PRN at home as well. Pain is better managed after paracentesis. -Patient states that her abdomen distention is worse. Early satiety due to large volume ascites. She is anxious to have the paracentesis done. -Patient states, "I just can't do this any more. I think [facility] is the next step." Patient agrees that she needs / care at SNF. She said, "I know I'm not getting any better than this." -After discussion, patient will likely go to SNF under rehab benefit initially then transition to long-term and hospice care. Main goal is comfort, she does not want to continue coming to the hospital. -Paracentesis in the future may need to be scheduled for comfort. Will see how she does after this paracentesis. -Patient wants to talk with her daughter Henny this evening and I will follow up tomorrow, including calling her daughter. (2) Ascites: (3) Nonalcoholic steatohepatitis (BRUNNER): (4) Bilateral lower extremity edema: Supervising Physician Co-Signing Physician Notes Chart reviewed, patient seen and examined-multiple family at bedside Collaborated with MALIK Jimenez Patient had paracentesis earlier today-reports she had 7.5 L removed-patient's respiratory status markedly improved. PE: Patient awake and alert, NAD HEENT: EOMI, hearing within normal limits Respirations: Unlabored, on room air CV: Bradycardic, 4+ lower extremity edema right greater than left to the level of the mid thigh Abdomen: Soft, nontender Extremities: Generalized weakness Neuro: Alert and oriented x4 Agree with above note, assessment and plan as per MALIK Jimenez-we will continue to follow and assist with medical decision making. Plan is for discharged to [facility]. History of Present Illness Reason for Consultation: Goals of care Requesting Physician: Dr. Shields Attending Physician: Maynor Shields DO History of Present Illness This 84 year old female patient with advanced non-alcoholic liver disease, ascites, liver masses, and others, presented to the hospital today with increased abdominal pain and distention. CXR performed which shows restrictive lung due to large amount of ascites. Patient was admitted and is planned to have paracentesis tomorrow 11/20 per report. Patient's last paracentesis was 10/31, was in hospital last week for hyperkalemia. Patient was previously on hospice for her liver disease-- her liver masses are presumed cancer but patient and family declined biopsy or further workup for these in the past. Patient lives at home alone with some supplemental care, but she is having a more and more difficult time managing her health. She has increased weakness, more pain, overall declining condition. Last admission, patient revoked hospice and went home with home health as she thought she would have more care at home with home health. Now, palliative care team is consulted to establish goals of care and assist with planning. Thank you kindly for this consult. Palliative care team will follow as needed. Allergies Allergy/AdvReac Type Severity Reaction Status Date / Time nortriptyline Allergy Intermediate RASH Verified 11/19/19 06:11 duloxetine Allergy Unknown GI SYMPTOMS Verified 11/19/19 06:11 gabapentin Allergy Unknown DIZZINESS Verified 11/19/19 06:11 metformin Allergy Unknown DIARRHEA Verified 11/19/19 06:11 niacin Allergy Unknown SWELLING Verified 11/19/19 06:11 nitrofurantoin Allergy Unknown MYALGIA Verified 11/19/19 06:11 venlafaxine Allergy Unknown GI SYMPTOMS Verified 11/19/19 06:11 lisinopril AdvReac Mild COUGH Verified 11/19/19 06:11 Home Medications Home Medications Medication Instructions Recorded Confirmed Type isosorbide mononitrate 60 mg 60 mg PO DAILY #90 tab 04/17/19 11/19/19 Rx tablet,extended release 24 hr levothyroxine 25 mcg tablet 25 mcg PO DAILY #90 tab 06/05/19 11/19/19 Rx polyethylene glycol 3350 17 gram 17 gm PO DAILY PRN 06/07/19 11/19/19 History oral powder packet nitroglycerin 0.4 mg sublingual 0.4 mg SL Q5M PRN #25 tab 07/13/19 11/19/19 Rx tablet pantoprazole 40 mg tablet,delayed 40 mg PO BID #180 tab 09/27/19 11/19/19 Rx release hydrocodone 10 mg-acetaminophen 1 tab PO TID PRN #20 tab 10/09/19 11/19/19 Rx 325 mg tablet furosemide 40 mg tablet 40 mg PO DAILY #90 tab 11/05/19 11/19/19 Rx hydralazine 25 mg PO TID #90 tab 11/12/19 11/19/19 Rx magnesium oxide 400 mg PO QAM #30 tab 11/12/19 11/19/19 Rx fentanyl 12 mcg/hr transdermal 1 patch TRANSDERMAL Q72H #10 ea 11/16/19 11/19/19 Rx patch metoprolol tartrate 50 mg tablet 50 mg PO BID #180 tab 11/16/19 11/19/19 Rx Patient History Medical History (Updated 11/19/19 @ 12:52 by MALIK Enrique) Acute bronchitis (Acute) Anemia CAD (coronary artery disease), [place] coronary artery (Chronic 07/14/14) Chest pain with high risk of acute coronary syndrome (Acute 07/14/14) Diabetes (Acute) Goals of care, counseling/discussion Hyperglycemia (Acute) Hyperglycemia (Acute) Liver cirrhosis MDS (myelodysplastic syndrome) (Chronic ~07/2002) Upper respiratory infection (Acute) Surgical History H/O percutaneous transluminal coronary angioplasty (Resolved) Hx of aortic valve replacement (Acute) pt states they did not remove her valve just added a second one Stented coronary artery (Chronic) Social History Preferred Language: [place] Communication Ability: Effective Visual Impairment: No Limitations Hearing Ability: Normal Nursing Staffing Coordinator Required: No Beliefs That Will Affect Care: None Current Living Situation: Alone Current Living Situation Comment: lives in an independent living- [employer] [facility] Other Information That Helps Us Care for You: No Feels Safe at Home: Yes Safety Concerns: Feels Safe At This Time Smoking Status: Former smoker Tobacco Type: cigarettes ; Do You Dip or Chew Tobacco: No ; Second Hand Exposure: No ; Hx Alcohol Use: No Hx Substance Use: No Review of Systems Review of Systems: Const: + worsening weakness ENMT: No dysphagia Resp: No SOB, no cough Cardio: No chest pain, + BLE edema GI: + abdominal pain, + abdominal distention and fullness, + early satiety; no N/V. MS: No musculoskeletal pain Neuro: No confusion Psych: No anxiety, no depression Physical Exam Constitutional: no acute distress elderly ENMT: external ear and nose normal, oropharynx normal Respiratory: normal respiratory effort, lungs clear to auscultation Cardiovascular: Rate/Rhythm: regular rate and regular rhythm Extremities: + edema (pitting edema in BLE which extends the entire way up to hips) Gastrointestinal (Abdomen): Inspection/Auscultation: + abdomen distended, normal bowel sounds and + abdominal edema (dependent) Percussion/Palpation: + abdomen tender Neurologic: moves all extremities and awake Psychiatric: A+Ox3, euthymic affect Insight: good insight Judgement: good judgement Results & Data Vital Signs (Past 12 Hours) Vital Signs Temp Pulse Pulse Pulse Resp BP BP 11/19/19 09:24 36.5 C 54 L 18 137/67 11/19/19 08:00 60 18 120/45 L 11/19/19 06:01 62 18 118/55 L 11/19/19 05:38 78 11/19/19 05:12 36.7 C 66 18 160/48 H Pulse Ox 11/19/19 09:24 98 11/19/19 08:00 96 11/19/19 06:01 98 11/19/19 05:38 98 11/19/19 05:12 98 Time Spent Midlevel 70 minutes with >50% of the time spent at bedside with patient discussing condition and GOC.
--- NOTE | 2019-11-19 14:08 | Ultrasound Report ---
PARACENTESIS UNDER ULTRASOUND GUIDANCE CLINICAL HISTORY: Ascites COMPARISON STUDY: No previous studies for comparison. FINDINGS: The risks, benefits, and alternatives to the procedure were discussed with the patient. [facility] lon informed consent was obtained. Following real-time ultrasound localization, the skin was prepped and draped. Following local anesthesia with Xylocaine, the sheath paracentesis needle was inserted a nd approximately 5.2 liters of straw-colored fluid was removed by vacuum suction. A left lower quadra nt approach was utilized. The patient tolerated the procedure well and left the department in satisfactory condition. IMPRESSION: Successful ultrasound-guided paracentesis with removal of approximately 5.2 liters of asc itic fluid. ACT 112: Negative or not required by law. Electronically signed by: Francis Palomares M.D. 11/19/2019 2:06 PM
[2019-11-19] MEDS: HEPARIN SOD 5,000 UNIT/0.5 ML VIAL SQ SCH ×2 (14:09→21:43)
[2019-11-20 00:15] LABS: Appearance Urine Cloudy (Clear); Bilirubin Urine Negative (Negative); Blood Urine Negative (Negative); Color Urine Dark Yellow; Epithelial Cell Urine Auto >30 /lpf (0-5); Glucose Urine UA Negative (Negative); Ketones Urine Negative (Negative); Leukocyte Esterase Urine 1+ (Negative); Nitrite Urine Negative (Negative); Protein Urine Negative (Negative); Specific Gravity Urine 1.016 (1.000-1.030); Urobilinogen Urine Negative (Negative); WBC Urine Automated >30 /hpf (0-5)
[2019-11-20 00:56] LABS: Cast Urine Automated >30 /lpf (0-5); RBC Urine Automated 0-4 /hpf (0-4)
[2019-11-20 00:58] LABS: Bacteria Urine Automated 1+ (Negative)
[2019-11-20] MEDS: ONDANSETRON INJ 2 MG/ML 2 ML VIAL IV PRN ×3 (04:29→21:08)
[2019-11-20] MEDS: LEVOTHYROXINE SODIUM 25 MCG TABLET PO SCH (05:29)
[2019-11-20] MEDS: HEPARIN SOD 5,000 UNIT/0.5 ML VIAL SQ SCH ×3 (05:29→21:13)
[2019-11-20] MEDS: PANTOprazole 40 MG TAB PO SCH ×2 (09:21→21:06)
[2019-11-20] MEDS: CHECK FENTANYL PATCH PLACEMENT SCH ×2 (09:21→16:27)
[2019-11-20] MEDS: MAGNESIUM OXIDE 400 MG TAB PO SCH (09:21)
[2019-11-20] MEDS: FUROSEMIDE 40 MG TAB PO SCH (09:22)
--- NOTE | 2019-11-20 09:35 | Electrocardiogram Report ---
Test Reason : Blood Pressure : / mmHG Vent. Rate : 066 BPM Atrial Rate : 147 BPM P-R Int : 000 ms QRS Dur : 142 ms QT Int : 478 ms P-R-T Axes : 000 -29 127 degrees QTc Int : 501 ms Poor data quality, interpretation may be adversely affected Normal sinus rhythm Left bundle branch block Abnormal ECG When compared with ECG of 06-NOV-2019 22:17, No significant change Confirmed by Tom Russ ([id number]) on 11/20/2019 9:34:54 AM Referred By: REFERRED SELF Confirmed By:Tom Russ
--- NOTE | 2019-11-20 11:23 | Palliative Care Progress Note ---
Date of Service November 20, 2019 Assessment & Plan (1) Goals of care, counseling/discussion: -Met with patient this morning in room 386-1. Abdominal pain is gone, distention is much better. Does have some nausea. -Spoke with manjeet's daughter and son in law as well. -Plan remains for patient go to SNF under rehab benefit initially then transition to long-term and hospice care. Main goal is comfort, she does not want to continue coming to the hospital-- daughter is in agreement with this. -Patient does want to continue to have her abdomen drained when needed for comfort. Paracentesis will likely need to be scheduled in the future-- will depend on how quickly fluid reaccumulates. -Patient is DNR/DNI. Will try to get POLST form completed prior to discharge. Patient's daughter and son-in-law were leaving today, will follow up. -No symptom management needs at this time. Continue current regimen. (2) Ascites: (3) Nonalcoholic steatohepatitis (BRUNNER): (4) Bilateral lower extremity edema: Subjective Patient's abdomen is feeling much better today after 5.2L fluid removed. Did speak with patient's daughter, Henny, and son-in-law outside of room with patient's permission. Patient had some nausea this morning, Zofran helps. Review of Systems Review of Systems: Const: + worsening weakness ENMT: No dysphagia Resp: No SOB, no cough Cardio: No chest pain, + BLE edema GI: no abdominal pain, + less abdominal distention and fullness, + early satiety; + some nausea this morning. MS: No musculoskeletal pain Neuro: No confusion Psych: No anxiety, no depression Physical Exam Constitutional: no acute distress ENMT: external ear and nose normal, oropharynx normal Respiratory: normal respiratory effort, lungs clear to auscultation Cardiovascular: Rate/Rhythm: regular rate and regular rhythm Extremities: + edema (pitting edema in BLE which extends the entire way up to hips) Gastrointestinal (Abdomen): Inspection/Auscultation: normal bowel sounds and + abdominal edema (dependent) Percussion/Palpation: abdomen soft; abdomen nontender Neurologic: moves all extremities and awake Psychiatric: A+Ox3, euthymic affect Insight: good insight Judgement: good judgement Results & Data Vital Signs (Past 12 Hours) Vital Signs Temp Pulse Resp BP Pulse Ox 11/20/19 07:03 36.7 C 57 L 16 151/66 H 97 11/19/19 23:24 36.6 C 65 16 119/45 L 97 Time Spent Midlevel 35 minutes with >50% of the time spent at bedside with patient and family discussing condition and GOC.
--- NOTE | 2019-11-20 23:55 | Hospitalist Progress Note ---
Date of Service November 20, 2019 Assessment & Plan (1) Liver cirrhosis: MELD score is around 22, no INR to use this admission Cr is getting worse which is likely poor prognostic sign, will repeat on 11/21 making less urine will order therapeutic paracentesis, discussed that we could potentially get a drain but may make her condition worse she is not eating well, has abdominal pain, very weak palliative care follow, appreciate their recommendations working on [facility] will reach out to radiology to see if they place paracentesis drains (2) Nonalcoholic steatohepatitis (BRUNNER): lead to cirrhosis need to manage symptoms (3) Liver mass: hospice, no further work up planned (4) Ascites: therapeutic paracentesis for several liters on 11/19 no diagnostic work up will see how fast her fluid accumulates will consider drain prior to discharge, will ask radiology if they can perform this (5) Hyperkalemia: mild at 5.2 on admission repeat tomorrow likely due to worsening renal function no longer on aldactone or ARB (6) Increase in creatinine: Cr trending upward, likely a poor prognostic sign retaining fluid despite being compliant with Lasix if she is developing hepatorenal syndrome then her life expectancy is even less Subjective patient resting most of the day she still has relief from the paracentesis on 11/19 not much of an appetite breathing is stable no fever/chills, no chest pain, no cough she remains committed to going to [facility] for hospice no labs today, will check tomorrow Review of Systems Review of Systems: All systems reviewed & are unremarkable except as noted in HPI & below Constitutional: + fatigue and + weakness; no fever Respiratory: + dyspnea on exertion; no cough and no dyspnea Cardiovascular: + edema; no chest pain Gastrointestinal: + abdominal pain; no nausea, no vomiting, no constipation and no diarrhea/loose stools Musculoskeletal: + muscle weakness Physical Exam Constitutional: WD/WN, vitals as above Eyes: PERRL, conjunctivae normal, anicteric sclerae ENMT: external ear and nose normal, oropharynx normal Neck: trachea midline, no thyromegaly Respiratory: normal respiratory effort, lungs clear to auscultation Cardiovascular: Rate/Rhythm: regular rate and regular rhythm Heart Sounds: normal S1 and normal S2; no murmur Vessels: no JVD Extremities: normal capillary refill and + edema Gastrointestinal (Abdomen): Inspection/Auscultation: abdomen normal to inspection, normal bowel sounds and + abdominal edema Percussion/Palpation: + ascites (trace) and + dullness to percussion; abdomen nontender, no guarding, abdomen not rigid and no fluid wave Musculoskeletal: no cyanosis or clubbing, extremities motor strength 5/5 Skin: no rashes, warm and dry Neurologic: patellar DTR's 2+ bilat, sensation intact and PERRL, EOMI, accommodation nl, no face palsy, no dysarthria Psychiatric: Orientation: alert and oriented x 3 Affect: + depressed affect Mood: + depressed mood Lymphatic: no cervical or axillary lymphadenopathy Results & Data Vital Signs (Past 12 Hours) Vital Signs Temp Pulse Resp BP BP Pulse Ox 11/20/19 20:31 36.6 C 78 14 132/72 97 11/20/19 15:16 36.8 C 67 18 113/57 L 96 11/20/19 13:58 65 16 124/69 98 Laboratory Results Laboratory Results - last 24 hr 11/19/19 23:48 Urine Color Dark Yellow Urine Appearance Cloudy A Urine pH 5.0 Ur Specific [place] 1.016 Urine Protein Negative Urine Glucose (UA) Negative Urine Ketones Negative Urine Blood Negative Urine Nitrite Negative Urine Bilirubin Negative Urine Urobilinogen Negative Ur Leukocyte Esterase 1+ H Urine WBC (Auto) >30 H Urine RBC (Auto) 0-4 U Hyaline Cast (Auto) >30 H U Epithel Cells (Auto) >30 H Urine Bacteria (Auto) 1+ H Urine Yeast Budding A Medications Administered Current Inpatient Medications Acetaminophen (Tylenol) 650 mg PO Q4H PRN PRN Reason: pain/fever Stop: 12/19/19 09:21 Last Admin: 11/19/19 15:54 Dose: 650 mg Documented by: Hydrocodone Bitart/Acetaminophen ([place] 10/325) 1 tab PO TID PRN PRN Reason: Pain Stop: 12/03/19 09:21 Last Admin: 11/19/19 23:42 Dose: 1 tab Documented by: Fentanyl (Duragesic) 12 mcg TD Q72H ANGELA Stop: 12/05/19 08:59 Furosemide (Lasix) 40 mg PO DAILY ANGELA Stop: 12/19/19 09:44 Last Admin: 11/20/19 09:22 Dose: 40 mg Documented by: Heparin Sodium (Porcine) (Heparin Sodium (Porcine)) 5,000 units SQ Q8 [facility] Stop: 12/19/19 13:59 Last Admin: 11/20/19 21:13 Dose: 5,000 units Documented by: Hydralazine HCl (Apresoline) 25 mg PO TID [facility] Stop: 12/19/19 09:44 Last Admin: 11/20/19 21:06 Dose: Not Given Documented by: Levothyroxine Sodium (Synthroid) 25 mcg PO DAILYBB [facility] Stop: 12/19/19 09:44 Last Admin: 11/20/19 05:29 Dose: 25 mcg Documented by: Magnesium Oxide (Mag-Ox) 400 mg PO QAM [facility] Stop: 12/19/19 09:44 Last Admin: 11/20/19 09:21 Dose: 400 mg Documented by: Miscellaneous (Fentanyl Patch Remove & Waste) 1 ea N/A Q3D [facility] Stop: 12/21/19 08:58 Miscellaneous (Fentanyl Patch Check Placement) 1 ea N/A QS [facility] Stop: 12/19/19 09:59 Last Admin: 11/20/19 16:27 Dose: 1 ea Documented by: Ondansetron HCl (Zofran) 4 mg IV Q6H PRN PRN Reason: Nausea Stop: 12/19/19 09:21 Last Admin: 11/20/19 21:08 Dose: 4 mg Documented by: Pantoprazole Sodium (Protonix) 40 mg PO BID [facility] Stop: 12/19/19 09:44 Last Admin: 11/20/19 21:06 Dose: Not Given Documented by: PG Care Time/CCT Total # of Minutes Spent Total Time Spent with Patient: Total time spent is greater than 50% in coordination of care (as documented) at patient's floor/unit and/or counseling patient: (1) Ascites Ascites type: other type Qualified Code(s): R18.8 - Other ascites
[2019-11-21] MEDS: CHECK FENTANYL PATCH PLACEMENT SCH ×4 (00:54→23:52)
[2019-11-21] MEDS: LEVOTHYROXINE SODIUM 25 MCG TABLET PO SCH (05:53)
[2019-11-21] MEDS: HEPARIN SOD 5,000 UNIT/0.5 ML VIAL SQ SCH (05:55)
[2019-11-21 05:58] LABS: Hematocrit (blood only) 25.5 % (37-47); Hemoglobin 8.7 g/dL (12.0-16.0); Mean Corpuscular Hemoglobin 33.7 pg (25-34); Mean Corpuscular Hgb Conc 34.1 g/dL (32-36); Mean Corpuscular Volume 98.8 fL (80-100); RDW Coefficient of Variation 15.9 % (11.5-14.5); RDW Standard Deviation 57.5 fL (36.4-46.3); Red Blood Count 2.58 M/uL (4.2-5.4); White Blood Count 4.04 K/uL (4.8-10.8)
[2019-11-21] MEDS: ONDANSETRON INJ 2 MG/ML 2 ML VIAL IV PRN ×2 (05:59→16:04)
[2019-11-21 06:11] LABS: Mean Platelet Volume 11.7 fL (7.4-10.4); Platelet Count 65 K/uL (130-400)
[2019-11-21 06:37] LABS: Albumin Level 2.1 gm/dl (3.4-5.0); BUN Creatinine Ratio 21.9 (10-20); Calcium 8.5 mg/dl (8.5-10.1); Creatinine Clr Calc Pharmacy 14.5 ml/min; Est GFR (Non-African American) 15.5
[2019-11-21 06:52] LABS: Albumin Globulin Ratio 0.6 (0.9-2); Bilirubin,Total 1.6 mg/dl (0.2-1); Globulin 3.5 gm/dl (2.5-4.0); Total Protein 5.6 gm/dl (6.4-8.2)
[2019-11-21] MEDS ORDERED: PROMETHAZINE HCL 12.5 MG in SODIUM CHLORIDE 0.9% 50 ML IV PRN (08:30)
[2019-11-21] MEDS ORDERED: PROMETHAZINE HCL 25 MG in SODIUM CHLORIDE 0.9% 50 ML IV ONE (09:00)
[2019-11-21] MEDS ORDERED: fentaNYL 12 MCG/HR TDSY TD SCH (09:00)
[2019-11-21] MEDS: PANTOprazole 40 MG TAB PO SCH (09:40)
[2019-11-21] MEDS: FUROSEMIDE 40 MG TAB PO SCH (09:40)
[2019-11-21] MEDS: MAGNESIUM OXIDE 400 MG TAB PO SCH (09:40)
[2019-11-21] MEDS ORDERED: MoRPHine SULFATE 5 MG/0.25 ML UDP PO PRN (10:31)
[2019-11-21] MEDS ORDERED: MoRPHine SULFATE 4 MG/ML 1 ML CARP\\VIAL IV PRN (10:31)
[2019-11-21] MEDS ORDERED: MoRPHine SULFATE 2 MG/ML CARP IV PRN (10:31)
[2019-11-21] MEDS ORDERED: CHECK FENTANYL PATCH PLACEMENT SCH (11:29)
[2019-11-21] MEDS: fentaNYL 25 MCG/HR TDSY TD SCH (11:51)
--- NOTE | 2019-11-21 13:15 | Hospitalist Progress Note ---
Date of Service November 21, 2019 Assessment & Plan (1) Liver cirrhosis: MELD score is around 22 on admission Cr is getting worse today at 2.69, making less urine initially planned to place drain for ascites however, patient now unlikely to leave hospital, in too much pain will increase Fentanyl, add Morphine IV PRN and Roxanol PRN updated family that patient wants to be made comfortable here in the hospital discussed with palliative care, they agree with inpatient comfort measures (2) Nonalcoholic steatohepatitis (BRUNNER): lead to cirrhosis now for comfort care (3) Liver mass: hospice, no further work up planned (4) Ascites: therapeutic paracentesis for several liters on 11/19 no diagnostic work up will see how fast her fluid accumulates more pain today, agitated, will not plan for drain, just use medications (5) Hyperkalemia: mild at 5.2 on admission repeat today is 5.0 likely due to worsening renal function no longer on aldactone or ARB no further labs, comfort care (6) Increase in creatinine: Cr trending upward to 2.69, very poor prognostic sign retaining fluid despite being compliant with Lasix no further lab draws Subjective patient in more pain this morning, nauseated, slightly confused she is clearly more agitated discussed with her that renal function getting worse, filling up with fluid she says that she just wants to be comfortable called family to update them that I don't think she is appropriate to go to [facility], will make her comfortable here d/w RN, will make med adjustments increase Fentanyl patch, add Morphine IV, Roxanol SL PRN removed most of her unneccessary medications labs today show Cr up to 2.6 which is worse prognosis Review of Systems Review of Systems: All systems reviewed & are unremarkable except as noted in HPI & below Constitutional: + fatigue and + weakness Respiratory: + dyspnea Cardiovascular: + edema; no chest pain Gastrointestinal: + abdominal pain and + nausea; no vomiting, no constipation and no diarrhea/loose stools Musculoskeletal: + muscle weakness Psychiatric: + anxiety Physical Exam Constitutional: WD/WN, vitals as above Eyes: PERRL, conjunctivae normal, anicteric sclerae ENMT: external ear and nose normal, oropharynx normal Neck: trachea midline, no thyromegaly Respiratory: + labored breathing and + tachypneic Auscultation: + diminished lung sounds and + rales (bases) Cardiovascular: Rate/Rhythm: regular rate and regular rhythm Heart Sounds: normal S1 and normal S2; no murmur Vessels: no JVD Extremities: normal capillary refill and + edema Gastrointestinal (Abdomen): Inspection/Auscultation: abdomen normal to inspection, normal bowel sounds and + abdominal edema Percussion/Palpation: + ascites (trace) and + dullness to percussion; abdomen nontender, no guarding, abdomen not rigid and no fluid wave Musculoskeletal: no cyanosis or clubbing, extremities motor strength 5/5 Skin: no rashes, warm and dry Neurologic: patellar DTR's 2+ bilat, sensation intact and PERRL, EOMI, accommodation nl, no face palsy, no dysarthria Psychiatric: Orientation: alert and oriented x 3 Affect: + anxious affect Mood: + depressed mood Lymphatic: no cervical or axillary lymphadenopathy Results & Data Vital Signs (Past 12 Hours) Vital Signs Temp Pulse Resp BP Pulse Ox 11/21/19 07:47 36.4 C L 81 20 133/63 81 L Laboratory Results Laboratory Results - last 24 hr 11/21/19 11/21/19 05:21 05:21 WBC 4.04 L RBC 2.58 L Hgb 8.7 L Hct 25.5 L MCV 98.8 MCH 33.7 MCHC 34.1 RDW Std Deviation 57.5 H RDW Coeff of [place] 15.9 H Plt Count 65 L MPV 11.7 H Sodium 137 Potassium 5.0 Chloride 108 H Carbon Dioxide 22 Anion Gap 7.0 BUN 59 H Creatinine 2.69 H D Est Cr Clr Drug Dosing 14.5 Est GFR ( Amer) 18.0 Est GFR (Non-Af Amer) 15.5 BUN/Creatinine Ratio 21.9 H Glucose 135 H Calcium 8.5 Total Bilirubin 1.6 H AST 23 ALT 17 Alkaline Phosphatase 128 H Total Protein 5.6 L Albumin 2.1 L Globulin 3.5 Albumin/Globulin Ratio 0.6 L Medications Administered Current Inpatient Medications Acetaminophen (Tylenol) 650 mg PO Q4H PRN PRN Reason: pain/fever Stop: 12/19/19 09:21 Last Admin: 11/19/19 15:54 Dose: 650 mg Documented by: Hydrocodone Bitart/Acetaminophen ([place] 10/325) 1 tab PO TID PRN PRN Reason: Pain Stop: 12/03/19 09:21 Last Admin: 11/19/19 23:42 Dose: 1 tab Documented by: Fentanyl (Duragesic) 25 mcg TD Q72H ANGELA Stop: 12/05/19 11:29 Last Admin: 11/21/19 11:51 Dose: 25 mcg Documented by: Promethazine HCl 12.5 mg/ (Sodium Chloride) 50.5 mls @ 202 mls/hr IV Q6H PRN PRN Reason: Nausea And Vomiting Stop: 12/21/19 08:29 Miscellaneous (Fentanyl Patch Check Placement) 1 ea N/A QS [facility] Stop: 12/19/19 09:59 Last Admin: 11/21/19 09:03 Dose: 1 ea Documented by: Miscellaneous (Fentanyl Patch Check Placement) 1 ea N/A Q72H ANGELA Stop: 12/21/19 11:28 Last Admin: 11/21/19 11:54 Dose: 1 ea Documented by: Morphine Sulfate (Morphine Sulfate) 2 mg IV Q4H PRN PRN Reason: Pain Stop: 12/05/19 10:30 Morphine Sulfate (Morphine Sulfate) 4 mg IV Q4H PRN PRN Reason: Severe Pain Stop: 12/05/19 10:30 Morphine Sulfate (Roxanol) 5 mg PO Q4 PRN PRN Reason: Pain Stop: 12/05/19 10:30 Last Admin: 11/21/19 12:17 Dose: 5 mg Documented by: Ondansetron HCl (Zofran) 4 mg IV Q6H PRN PRN Reason: Nausea Stop: 12/19/19 09:21 Last Admin: 11/21/19 05:59 Dose: 4 mg Documented by: PG Care Time/CCT Total # of Minutes Spent Total Time Spent: 40 Total Time Spent with Patient: Total time spent is greater than 50% in coordination of care (as documented) at patient's floor/unit and/or counseling patient: (1) Ascites Ascites type: other type Qualified Code(s): R18.8 - Other ascites
--- NOTE | 2019-11-21 13:56 | Palliative Care Progress Note ---
Date of Service November 21, 2019 Assessment & Plan (1) Goals of care, counseling/discussion: -I met with the patient in her room. No family at bedside. -Pt did not open her eyes or communicate with me during my visit. -patient in more pain this morning,moaning, increasingly confused -Patient pulling at covers repeatedly stating "I am cold cover me up" -renal function worsening -Discussed with hospitalist who spoke with family, comfort medications increased. -Can see how she does over the next few days, to discuss possible discharge to SNF, but at this time, appears that she is rapidly declining. Should she require increasing amounts of medications, can possibly discuss GIP, but at this time, current increased medication regimen providing comfort. -If consistent discomfort noted, I would consider scheduling the Roxanol. -Pt has Fentanyl patch, Morphine IV both 2 and 4 mg available PRN, and Roxanol 5mg SL Q4 PRN -PPS 10% (2) Chronic diastolic (congestive) heart failure: (3) Nonalcoholic steatohepatitis (BRUNNER): (4) Liver mass: (5) Peripheral edema: Subjective Pt increasingly restless today, moaning. appears to be terminal agitation discussed with hospitalist, comfort medications initiated. See A/P for further details. Review of Systems Review of Systems: Unobtainable due to cognitive status Physical Exam Constitutional: + acute distress, + ill appearing and + frail appearing Respiratory: + labored breathing and + uses accessory muscles Auscultation: + diminished lung sounds and + rhonchi Cardiovascular: Rate/Rhythm: + tachycardic Heart Sounds: normal S1 and normal S2 Extremities: normal capillary refill; no edema Skin: no rashes, warm and dry Psychiatric: Orientation: alert Insight: + impaired insight Judgement: + impaired judgement Results & Data Vital Signs (Past 12 Hours) Vital Signs Temp Pulse Resp BP Pulse Ox 11/21/19 07:47 36.4 C L 81 20 133/63 81 L PG Care Time/CCT Total # of Minutes Spent Total Time Spent with Patient: Total time spent is greater than 50% in coordination of care (as documented) at patient's floor/unit and/or counseling patient: 35 Time Spent Midlevel total time spent 35 minutes with > 50% of that time spent assessing the patient, discussing goals of care and symptom management with IDT.
[2019-11-22] MEDS: CHECK FENTANYL PATCH PLACEMENT SCH ×3 (08:02→23:51)
--- NOTE | 2019-11-22 16:27 | Hospitalist Progress Note ---
Date of Service November 22, 2019 Assessment & Plan (1) Liver cirrhosis: MELD score is around 22 on admission Cr is getting worse on 11/21 at 2.69, making less urine could be suggestive of hepatorenal syndrome initially planned to place drain for ascites however, patient now unlikely to leave hospital, in too much pain will increase Fentanyl, add Morphine IV PRN and Roxanol PRN updated family that patient wants to be made comfortable here in the hospital today she is actually doing a little better will see how she does over the weekend as [facility] does not have any beds available (2) Nonalcoholic steatohepatitis (BRUNNER): lead to cirrhosis now for comfort care (3) Liver mass: hospice, no further work up planned (4) Ascites: therapeutic paracentesis for several liters on 11/19 no diagnostic work up will see how fast her fluid accumulates more pain today, agitated, will not plan for drain, just use medications (5) Hyperkalemia: mild at 5.2 on admission repeat 11/21 is 5.0 likely due to worsening renal function no longer on aldactone or ARB no further labs, comfort care (6) Increase in creatinine: Cr trending upward to 2.69, very poor prognostic sign retaining fluid despite being compliant with Lasix no further lab draws very well could be developing hepatorenal syndrome Subjective patient with less pain today able to get OOB into chair today discussed with case management, [facility] does not have beds until next week will see how the patient does over the weekend she is trying to eat a little more breathing okay today Review of Systems Review of Systems: All systems reviewed & are unremarkable except as noted in HPI & below Physical Exam Constitutional: WD/WN, vitals as above Eyes: PERRL, conjunctivae normal, anicteric sclerae ENMT: external ear and nose normal, oropharynx normal Neck: trachea midline, no thyromegaly Respiratory: normal respiratory effort; no respiratory distress Auscultation: + diminished lung sounds and + rales (bases) Cardiovascular: Rate/Rhythm: regular rate and regular rhythm Heart Sounds: normal S1 and normal S2; no murmur Vessels: no JVD Extremities: normal capillary refill and + edema Gastrointestinal (Abdomen): Inspection/Auscultation: abdomen normal to inspection, normal bowel sounds and + abdominal edema Percussion/Palpation: + ascites (trace) and + dullness to percussion; abdomen nontender, no guarding, abdomen not rigid and no fluid wave Musculoskeletal: no cyanosis or clubbing, extremities motor strength 5/5 Skin: no rashes, warm and dry Neurologic: patellar DTR's 2+ bilat, sensation intact and PERRL, EOMI, accommodation nl, no face palsy, no dysarthria Psychiatric: Orientation: alert and oriented x 3 Lymphatic: no cervical or axillary lymphadenopathy Results & Data Medications Administered Current Inpatient Medications Acetaminophen (Tylenol) 650 mg PO Q4H PRN PRN Reason: pain/fever Stop: 12/19/19 09:21 Last Admin: 11/19/19 15:54 Dose: 650 mg Documented by: Hydrocodone Bitart/Acetaminophen ([place] 10/325) 1 tab PO TID PRN PRN Reason: Pain Stop: 12/03/19 09:21 Last Admin: 11/19/19 23:42 Dose: 1 tab Documented by: Fentanyl (Duragesic) 25 mcg TD Q72H [facility] Stop: 12/05/19 11:29 Last Admin: 11/21/19 11:51 Dose: 25 mcg Documented by: Promethazine HCl 12.5 mg/ (Sodium Chloride) 50.5 mls @ 202 mls/hr IV Q6H PRN PRN Reason: Nausea And Vomiting Stop: 12/21/19 08:29 Miscellaneous (Fentanyl Patch Check Placement) 1 ea N/A QS [facility] Stop: 12/19/19 09:59 Last Admin: 11/22/19 08:02 Dose: 1 ea Documented by: Miscellaneous (Fentanyl Patch Check Placement) 1 ea N/A Q72H [facility] Stop: 12/21/19 11:28 Last Admin: 11/21/19 11:54 Dose: 1 ea Documented by: Morphine Sulfate (Morphine Sulfate) 2 mg IV Q4H PRN PRN Reason: Pain Stop: 12/05/19 10:30 Morphine Sulfate (Morphine Sulfate) 4 mg IV Q4H PRN PRN Reason: Severe Pain Stop: 12/05/19 10:30 Morphine Sulfate (Roxanol) 5 mg PO Q4 PRN PRN Reason: Pain Stop: 12/05/19 10:30 Last Admin: 11/21/19 12:17 Dose: 5 mg Documented by: Ondansetron HCl (Zofran) 4 mg IV Q6H PRN PRN Reason: Nausea Stop: 12/19/19 09:21 Last Admin: 11/21/19 16:04 Dose: 4 mg Documented by: PG Care Time/CCT Total # of Minutes Spent Total Time Spent with Patient: Total time spent is greater than 50% in coordination of care (as documented) at patient's floor/unit and/or counseling patient: (1) Ascites Ascites type: other type Qualified Code(s): R18.8 - Other ascites
[2019-11-23] MEDS: CHECK FENTANYL PATCH PLACEMENT SCH ×3 (09:03→22:48)
--- NOTE | 2019-11-23 12:28 | Palliative Care Progress Note ---
Date of Service November 23, 2019 Assessment & Plan (1) Goals of care, counseling/discussion: -Patient is feeling much better and looks great today. She is sitting in chair, oriented x4. Son-in-law present at bedside. -Patient's plan is to go to [facility] once there is a bed available-- likely next week. -Patient still states that her goal is strictly for comfort. -POLST form completed as follows: DNR, comfort measures only, abx with comfort as the goal, no artificial hydration/nutrition. I signed the POLST and patient will sign it once her daughter Henny comes in this evening. Son-in-law was present during POLST and agrees with everything as well. -We discussed the possibility of a peritoneal catheter for comfort. Patient would like to hold off on this for now. Her abdomen is soft and non-distended. -We will sign off at this time. Please contact us with any change in patient's condition. (2) Chronic diastolic (congestive) heart failure: (3) Nonalcoholic steatohepatitis (BRUNNER): (4) Liver mass: (5) Peripheral edema: Subjective Patient is feeling well today. She is alert and sitting up in chair. Son-in-law at bedside. Review of Systems Review of Systems: Const: + worsening weakness ENMT: No dysphagia Resp: No SOB, no cough Cardio: No chest pain, + BLE edema GI: no abdominal pain, + less abdominal distention and fullness, + early satiety; + some nausea this morning. MS: No musculoskeletal pain Neuro: No confusion Psych: No anxiety, no depression Physical Exam Constitutional: no acute distress ENMT: external ear and nose normal, oropharynx normal Respiratory: normal respiratory effort, lungs clear to auscultation Cardiovascular: Rate/Rhythm: regular rate and regular rhythm Extremities: + edema (pitting edema in BLE which extends the entire way up to hips) Gastrointestinal (Abdomen): Inspection/Auscultation: normal bowel sounds; abdomen not distended Percussion/Palpation: abdomen soft; abdomen nontender Neurologic: moves all extremities and awake Psychiatric: A+Ox3, euthymic affect Insight: good insight Judgement: good judgement Time Spent Midlevel 35 minutes with >50% of the time spent at bedside with patient and family discussing goals of care, plan and POLST.
[2019-11-23] MEDS: ONDANSETRON INJ 2 MG/ML 2 ML VIAL IV PRN (15:35)
--- NOTE | 2019-11-23 15:49 | Hospitalist Progress Note ---
Date of Service November 23, 2019 Assessment & Plan (1) Liver cirrhosis: MELD score is around 22 on admission Cr is getting worse on 11/21 at 2.69, making less urine could be suggestive of hepatorenal syndrome initially planned to place drain for ascites however, pain is adequately controlled if pain gets worse could request repeat paracentesis prior to discharge, consider palliative drain placed? continue Fentanyl at 25mcg, can increase if needed, continue Morphine IV PRN and Roxanol PRN updated family that patient wants to be made comfortable doing better today plan for [facility] on discharge with transition to hospice consult PT/OT for authorization purposes to get her to SNF (2) Nonalcoholic steatohepatitis (BRUNNER): lead to cirrhosis now for comfort care (3) Liver mass: hospice, no further work up planned (4) Ascites: therapeutic paracentesis for several liters on 11/19 no diagnostic work up will see how fast her fluid accumulates less pain today, agitated, will not plan for drain, just use medications if she has a lot more ascites prior to discharge, could consider placement of drain for palliative drainage at SNF (5) Hyperkalemia: mild at 5.2 on admission repeat 11/21 is 5.0 likely due to worsening renal function no longer on aldactone or ARB no further labs, comfort care (6) Increase in creatinine: Cr trending upward to 2.69, very poor prognostic sign retaining fluid despite being compliant with Lasix no further lab draws very well could be developing hepatorenal syndrome will hold on further labs as patient wants comfort measures Plan: if she remains stable, plan for hospice at [facility] early next week when they have a bed Subjective patient doing a little better today, less pain she is trying to eat more spent a lot of time OOB in a chair, breathing is stable discussed plan with her, will keep over the weekend, get PT/OT the plan will be to go to [facility], transition to hospice Review of Systems Review of Systems: All systems reviewed & are unremarkable except as noted in HPI & below Physical Exam Constitutional: WD/WN, vitals as above Eyes: PERRL, conjunctivae normal, anicteric sclerae ENMT: external ear and nose normal, oropharynx normal Neck: trachea midline, no thyromegaly Respiratory: normal respiratory effort, lungs clear to auscultation normal respiratory effort; no respiratory distress Auscultation: + diminished lung sounds Cardiovascular: Rate/Rhythm: regular rate and regular rhythm Heart Sounds: normal S1 and normal S2; no murmur Vessels: no JVD Extremities: normal capillary refill and + edema Gastrointestinal (Abdomen): Inspection/Auscultation: normal bowel sounds and + abdominal edema Percussion/Palpation: + ascites (trace) and + dullness to percussion; abdomen nontender, no guarding, abdomen not rigid and no fluid wave Musculoskeletal: no cyanosis or clubbing, extremities motor strength 5/5 Skin: no rashes, warm and dry Neurologic: patellar DTR's 2+ bilat, sensation intact and PERRL, EOMI, accommodation nl, no face palsy, no dysarthria Psychiatric: Orientation: alert and oriented x 3 Lymphatic: no cervical or axillary lymphadenopathy Results & Data Medications Administered Current Inpatient Medications Acetaminophen (Tylenol) 650 mg PO Q4H PRN PRN Reason: pain/fever Stop: 12/19/19 09:21 Last Admin: 11/19/19 15:54 Dose: 650 mg Documented by: Hydrocodone Bitart/Acetaminophen ([place] 10/325) 1 tab PO TID PRN PRN Reason: Pain Stop: 12/03/19 09:21 Last Admin: 11/19/19 23:42 Dose: 1 tab Documented by: Fentanyl (Duragesic) 25 mcg TD Q72H [facility] Stop: 12/05/19 11:29 Last Admin: 11/21/19 11:51 Dose: 25 mcg Documented by: Promethazine HCl 12.5 mg/ (Sodium Chloride) 50.5 mls @ 202 mls/hr IV Q6H PRN PRN Reason: Nausea And Vomiting Stop: 12/21/19 08:29 Miscellaneous (Fentanyl Patch Check Placement) 1 ea N/A QS [facility] Stop: 12/19/19 09:59 Last Admin: 11/23/19 22:48 Dose: 1 ea Documented by: Miscellaneous (Fentanyl Patch Remove & Waste) 1 ea N/A Q3D@1129 [facility] Stop: 12/24/19 11:28 Morphine Sulfate (Morphine Sulfate) 2 mg IV Q4H PRN PRN Reason: Pain Stop: 12/05/19 10:30 Morphine Sulfate (Morphine Sulfate) 4 mg IV Q4H PRN PRN Reason: Severe Pain Stop: 01/22/20 10:30 Morphine Sulfate (Roxanol) 5 mg PO Q4 PRN PRN Reason: Pain Stop: 12/05/19 10:30 Last Admin: 11/21/19 12:17 Dose: 5 mg Documented by: Ondansetron HCl (Zofran) 4 mg IV Q6H PRN PRN Reason: Nausea Stop: 12/19/19 09:21 Last Admin: 11/23/19 15:35 Dose: 4 mg Documented by: PG Care Time/CCT Total # of Minutes Spent Total Time Spent with Patient: Total time spent is greater than 50% in coordination of care (as documented) at patient's floor/unit and/or counseling patient: (1) Ascites Ascites type: other type Qualified Code(s): R18.8 - Other ascites
[2019-11-24] MEDS: CHECK FENTANYL PATCH PLACEMENT SCH ×3 (07:58→23:22)
--- NOTE | 2019-11-24 11:22 | Hospitalist Progress Note ---
Date of Service November 24, 2019 Assessment & Plan (1) Liver cirrhosis: MELD score is around 22 on admission Cr is getting worse on 11/21 at 2.69, making less urine could be suggestive of hepatorenal syndrome initially planned to place drain for ascites however, pain is adequately controlled if pain gets worse could request repeat paracentesis prior to discharge, consider palliative drain placed? continue Fentanyl at 25mcg, can increase if needed, continue Morphine IV PRN and Roxanol PRN updated family that patient wants to be made comfortable doing better today plan for [facility] on discharge with transition to hospice consult PT/OT for authorization purposes to get her to SNF We will check a BMP today, I suspect uremia with asterixis as noted. I did tell patient she could refuse lab work if she changes her mind as it would not significantly change outcome. (2) Nonalcoholic steatohepatitis (BRUNNER): lead to cirrhosis now for comfort care (3) Liver mass: hospice, no further work up planned (4) Ascites: therapeutic paracentesis for several liters on 11/19 no diagnostic work up will see how fast her fluid accumulates less pain today, agitated, will not plan for drain, just use medications if she has a lot more ascites prior to discharge, could consider placement of drain for palliative drainage at SNF (5) Hyperkalemia: mild at 5.2 on admission repeat 11/21 is 5.0 likely due to worsening renal function no longer on aldactone or ARB no further labs, comfort care (6) Increase in creatinine: Cr trending upward to 2.69, very poor prognostic sign retaining fluid despite being compliant with Lasix no further lab draws very well could be developing hepatorenal syndrome will hold on further labs as patient wants comfort measures Plan: if she remains stable, plan for hospice at [facility] early next week when they have a bed Subjective Patient seen with family in room. Patient is afebrile does not appear to be in any acute cardiopulmonary distress. Patient is asking why her hands are shaking as she feels is getting worse. I suspect it may be due to worsening uremia and offered blood work to the patient. She was initially refusing this but then was agreeable. Physical Exam Constitutional: cooperative; no acute distress Mildly confused Neck: trachea midline, no thyromegaly Respiratory: normal respiratory effort Auscultation: lungs clear to auscultation bilaterally; no crackles, no rales, no rhonchi and no wheezes Cardiovascular: Rate/Rhythm: regular rate and regular rhythm Heart Sounds: normal S1, normal S2 and + murmur Gastrointestinal (Abdomen): Inspection/Auscultation: abdomen normal to inspection Percussion/Palpation: abdomen soft; abdomen nontender, no guarding, abdomen not rigid and no hepatosplenomegaly Skin: no rashes, warm and dry Nonjaundiced PG Care Time/CCT Total # of Minutes Spent Total Time Spent with Patient: Total time spent is greater than 50% in coordination of care (as documented) at patient's floor/unit and/or counseling patient: (1) Ascites Ascites type: other type Qualified Code(s): R18.8 - Other ascites
[2019-11-24] MEDS: fentaNYL 25 MCG/HR TDSY TD SCH (11:38)
[2019-11-24 12:06] LABS: BUN Creatinine Ratio 23.8 (10-20); Calcium 8.5 mg/dl (8.5-10.1); Creatinine Clr Calc Pharmacy 16.2 ml/min; Est GFR (African American) 20.5; Est GFR (Non-African American) 17.7
[2019-11-25] MEDS: CHECK FENTANYL PATCH PLACEMENT SCH ×3 (08:01→23:40)
--- NOTE | 2019-11-25 10:37 | Hospitalist Progress Note ---
Date of Service November 25, 2019 Assessment & Plan (1) Liver cirrhosis: BMP checked this morning, no significant change from 11/21. No further change in her care, eventual plan is for discharge on 11/26 to [facility] once a bed is available with transition over to hospice. Patient does not appear to be uncomfortable at this time but will continue to monitor until she is discharged. (2) Nonalcoholic steatohepatitis (BRUNNER): lead to cirrhosis now for comfort care (3) Liver mass: hospice, no further work up planned (4) Ascites: therapeutic paracentesis for several liters on 11/19 no diagnostic work up will see how fast her fluid accumulates less pain today, agitated, will not plan for drain, just use medications if she has a lot more ascites prior to discharge, could consider placement of drain for palliative drainage at [facility] (5) Hyperkalemia: mild at 5.2 on admission repeat 11/24 is 5.0 likely due to worsening renal function no longer on aldactone or ARB no further labs, comfort care (6) Increase in creatinine: Cr trending upward to 2.41, very poor prognostic sign retaining fluid despite being compliant with Lasix no further lab draws very well could be developing hepatorenal syndrome will hold on further labs as patient wants comfort measures Plan: if she remains stable, plan for hospice at [facility] early next week when they have a bed Subjective Patient was alone in her room, fast asleep. I elected not to wake the patient she appeared comfortable. Physical Exam Physical Exam: Exam deferred for patient completed as noted above. PG Care Time/CCT Total # of Minutes Spent Total Time Spent with Patient: Total time spent is greater than 50% in coordination of care (as documented) at patient's floor/unit and/or counseling patient: (1) Ascites Ascites type: other type Qualified Code(s): R18.8 - Other ascites
[2019-11-26] MEDS: CHECK FENTANYL PATCH PLACEMENT SCH (08:42)
[2019-11-26] MEDS: ONDANSETRON INJ 2 MG/ML 2 ML VIAL IV PRN (08:44)
--- NOTE | 2019-11-26 12:00 | Hospitalist Progress Note ---
Date of Service November 26, 2019 Assessment & Plan (1) Liver cirrhosis: * Last BMP checked without significant change from 11/21. * No further change in her care, eventual plan is for discharge on 11/26 to [facility] once a bed is available with transition over to hospice. Patient does not appear to be uncomfortable at this time but will continue to monitor until she is discharged. * PT/OT faxed today -- CM following. Awaiting bed for possible discharge this afternoon. (2) Nonalcoholic steatohepatitis (BRUNNER): * leading to cirrhosis * now for comfort care (3) Liver mass: * hospice, no further work up planned (4) Ascites: * therapeutic paracentesis for 5.2L on 11/19 * no diagnostic work up * will see how fast her fluid accumulates -- had previously been requiring paracentesis every other month * less pain today although she states she does have some that she thinks may be related to being constipated * if she has a lot more ascites prior to discharge, could consider placement of drain for palliative drainage at [facility] (5) Hyperkalemia: * mild at 5.2 on admission * repeat 11/24 is 5.0 * likely due to worsening renal function * no longer on aldactone or ARB * no further labs, comfort care (6) Increase in creatinine: * Cr trending upward to 2.41, very poor prognostic sign * retaining fluid despite being compliant with Lasix * no further lab draws very well could be developing hepatorenal syndrome will hold on further labs as patient wants comfort measures Plan: if she remains stable, plan for hospice at [facility] early next week when they have a bed Subjective Patient evaluated this morning. States she is feeling "alright" but voices that she believes she has to have a BM. She believes this will help to relieve some of her abdominal fullness/pain. She continues to express that she would feels ready to be discharged to [facility] for some therapy and that she will be closer to her daughter when that transition happens. When asked if she feels ready for discharge today, the patient voices that she is ready to be dischar ge. Review of Systems Constitutional: + fatigue and + weakness Cardiovascular: + edema; no chest pain Gastrointestinal: + abdominal pain and + nausea; no vomiting, no constipation and no diarrhea/loose stools Musculoskeletal: + muscle weakness PG Care Time/CCT Total # of Minutes Spent Total Time Spent with Patient: Total time spent is greater than 50% in coordination of care (as documented) at patient's floor/unit and/or counseling patient: (1) Ascites Ascites type: other type Qualified Code(s): R18.8 - Other ascites
--- NOTE | 2019-11-26 14:26 | Discharge Summary ---
Date of Service November 26, 2019 Admission HPI Per Admitting Provider 84 yo female with h/o cirrhosis, liver mass, recurrent ascites, weakness who was recently hospitalized for hyperkalemia due to Spironolactone and Losartan, returns to the hospital several days after discharge due to being too weak and in too much pain. The patient had no energy at home, she could barely do anything to take care of herself. She was evaluated by therapy when she was here last week, recommendations were made for SNF but she refused. She had been on hospice but she revoked it in favor of home health and therapy. She failed quickly. Eating very poorly. Her ascites returned quickly as did her abdominal pain. She was experiencing dyspnea on exertion and then on rest. The pain is her abdomen was too much to bear, experiencing a lot of distension. Very brittani conversation with her about the cirrhosis and liver mass and going back on hospice. She agreed on admission that she is too weak for home, wants to go to [facility]. She agrees to speak with palliative care. Admission Exam Per Admitting Provider Constitutional: WD/WN, vitals as above Eyes: PERRL, conjunctivae normal, anicteric sclerae ENMT: external ear and nose normal, oropharynx normal Neck: trachea midline, no thyromegaly Respiratory: normal respiratory effort, lungs clear to auscultation Cardiovascular: Rate/Rhythm: regular rate and regular rhythm Heart Sounds: normal S1 and normal S2; no murmur Vessels: no JVD Extremities: normal capillary refill and + edema Gastrointestinal (Abdomen): Inspection/Auscultation: + abdomen distended, normal bowel sounds and + abdominal edema Percussion/Palpation: + abdomen tender (diffuse), + ascites (+ fluid wave), + dullness to percussion and + fluid wave; no guarding and abdomen not rigid Musculoskeletal: no cyanosis or clubbing, extremities motor strength 5/5 Skin: no rashes, warm and dry Neurologic: patellar DTR's 2+ bilat, sensation intact and PERRL, EOMI, accommodation nl, no face palsy, no dysarthria Psychiatric: Orientation: alert and oriented x 3 Affect: + depressed affect Mood: + depressed mood Lymphatic: no cervical or axillary lymphadenopathy Principal Diagnosis Liver Mass, Cirrhosis Discharge Exam Constitutional WD/WN, vitals as above no acute distress Eyes + anicteric sclerae and PERRL Neck trachea midline, no thyromegaly Respiratory normal respiratory effort; no respiratory distress and no labored breathing Auscultation: lungs clear to auscultation bilaterally and + diminished lung sounds Cardiovascular Rate/Rhythm: regular rate and regular rhythm Heart Sounds: normal S1 and normal S2 Extremities: + edema (2+ pitting, b/l LE) Gastrointestinal (Abdomen) Inspection/Auscultation: normal bowel sounds Percussion/Palpation: abdomen soft and + ascites; abdomen nontender Musculoskeletal no cyanosis or clubbing, extremities motor strength 5/5 Skin no rashes, warm and dry Neurologic patellar DTR's 2+ bilat, sensation intact Psychiatric Orientation: alert, oriented to person and oriented to place Lymphatic no cervical or axillary lymphadenopathy Discharge Data Allergies Allergy/AdvReac Type Severity Reaction Status Date / Time nortriptyline Allergy Intermediate RASH Verified 11/19/19 06:11 duloxetine Allergy Unknown GI SYMPTOMS Verified 11/19/19 06:11 gabapentin Allergy Unknown DIZZINESS Verified 11/19/19 06:11 metformin Allergy Unknown DIARRHEA Verified 11/19/19 06:11 niacin Allergy Unknown SWELLING Verified 11/19/19 06:11 nitrofurantoin Allergy Unknown MYALGIA Verified 11/19/19 06:11 venlafaxine Allergy Unknown GI SYMPTOMS Verified 11/19/19 06:11 lisinopril AdvReac Mild COUGH Verified 11/19/19 06:11 Consultations 11/19/19 09:22 Consult Case Management - Discharge Planning Routine Consult Palliative Care Routine 11/19/19 12:11 ED Decision to Admit Stat Ordered Studies 11/19/19 CXR 11/19/19 11:22 US paracentesis abd w/image Routine Hospital Course (1) Liver cirrhosis: * Admitted for progressive weakness and recurrent ascites with cirrhosis and liver mass. Ultimate decision for palliative measures and going back on hospice at [facility]. Had previously revoked in favor of home health and therapy. * Patient likely developing hepatorenal syndrome, as Creat trended upward to 2.41 on most recent lab check, without significant change from 11/21. * PT/OT with initial hope for skilled rehab, but given patients continued decline, patient discharged on Hospice to [facility]. (2) Nonalcoholic steatohepatitis (BRUNNER): * leading to cirrhosis-- patient discharged on hospice (3) Liver mass: * hospice, no further work up planned (4) Ascites: * therapeutic paracentesis for 5.2L on 11/19 without diagnostic work up * had previously been requiring paracentesis every other month * less pain today although she states she does have some that she thinks may be related to being constipated * If ascites accumulates more quickly, she may need to consider placement of drain for palliation at SNF (5) Hyperkalemia: * mild at 5.2 on admission. repeat 11/24 is 5.0. Likely due to worsening renal function. No longer on aldactone or ARB. No further labs, comfort care. (6) Increase in creatinine: * Cr trending upward to 2.41, very poor prognostic sign * retaining fluid despite being compliant with Lasix * no further lab draws * very well could be developing hepatorenal syndrome * Held further labs as patient wants comfort measures Dispo: discharge to [facility] on Hospice through [facility] Total Time Total Time Spent Total Time Spent (In Minutes): 75 Discharge Plan Discharge Items Patient Disposition: Hospice - Medical Facility Reason For Visit: WORSENING CIRRHOSIS,HYPERKALEMIA Discharge Diagnosis: Cirrhosis, Liver Mass Goals: You have been hospitalized for an acute medical problem. During your stay at [facility], we have made an effort to correct the problem that brought you to the hospital while keeping you as comfortable as possible. Medications were used to bring your condition under control and your discharge instructions will include directions for any medications you should take after leaving the hospital. Please make sure you see your Primary Care Provider as part of your follow up plan. Activity: Resume your previous activity Non-emergency contact: Primary Care Provider Call non-emergency contact if: you have any medication questions, your symptoms worsen and your pain is not controlled Follow-up/Referrals: Tony Arzola MD [Primary Care Provider] - [facility] [Non-Staff] - Diet: Low Potassium (2gm) and Low Sodium (2gm) Fluids: 1500ml (6 cups) Addtl Attending Provider Instructions: You are being discharged to [facility] with a plan for eventual transition to hospice. You may continue to utilize fentanyl transdermally and norco (hydrocodone- acetaminophen) by mouth as needed for pain. You may also take lactulose as needed for constipation, as opioids may worsen constipation. Please follow up with the medical provider at [facility]. It has been a pleasure being a part of the medical team providing for your while you have been hospitalized. Take care! Pending Studies at Discharge: No Stand-Alone Forms: [facility] Skilled Items Patient informed of condition?: Yes DNR: Yes Discharge Level of Care: Other Communicable Disease: No Discharge Prognosis: Deteriorating Lines: None Urinary Catheter: No Medications and DC Order Prescriptions: New lactulose 10 gram/15 mL solution 10 gm PO DAILY Qty: 237 RF: 0 Continued hydrocodone-acetaminophen [[place]] 10-325 mg tablet 1 tab PO TID PRN (Reason: Pain) Qty: 20 RF: 0 fentanyl 12 mcg/hr patch 72 hour 1 patch TRANSDERMAL Q72H Qty: 10 RF: 0 Discontinued isosorbide mononitrate 60 mg tablet extended release 24 hr 60 mg PO DAILY Qty: 90 RF: 3 levothyroxine 25 mcg tablet 25 mcg PO DAILY Qty: 90 RF: 3 nitroglycerin 0.4 mg tablet, sublingual 0.4 mg SL Q5M PRN (Reason: chest pain) Qty: 25 RF: 2 furosemide 40 mg tablet 40 mg PO DAILY Qty: 90 RF: 3 metoprolol tartrate 50 mg tablet 50 mg PO BID Qty: 180 RF: 3 pantoprazole 40 mg tablet,delayed release (DR/EC) 40 mg PO BID Qty: 180 RF: 1 polyethylene glycol 3350 [Miralax] 17 gram powder in packet 17 gm PO DAILY PRN (Reason: constipation) RF: 0 hydralazine 25 mg Tablet 25 mg PO TID Qty: 90 RF: 0 magnesium oxide 400 mg (241.3 mg magnesium) Tablet 400 mg PO QAM Qty: 30 RF: 0 Discharge Orders: Discharge Order (Routine); Ordered 11/26/19 Ordered By: Jolanta Hendrickson Admission Data Admit Date/Time: 11/21/19 09:37 Attending Provider: Jolanta Hendrickson Admit Provider: Maynor Shields Primary Care Provider: Tony Arzola Other Providers: Kelly Salcedo ; Bryant Del Castillo ; Grace Martinez ; Tory Knutson ; Jose Martinez ; Tino Welsh ; Sheryl Hill ; Cornelius Osei ; Chau Brewer ; Manyor Shields ; Jolanta Hendrickson ; Елена Davidson ; Melanie Juarez ; Deng Quintana ; Meeta Brandt ; Preston Rosen ; Milan Rodríguez ; Grace Fernando ; Erlin Grayson ; Ingris Dickinson ; Heidi Downing ; Tony Salazar ; Jose Christiansen ; Owen Berger ; America Lutz ; Malcolm Nails ; Milton Jerome ; Dori Ball ; Praneeth Reed ; Kevin Caro ; Tirso Borges ; Ced Alvares ; [facility] ; [facility] Other Interventions: Discharge Summary Assessment (RN) Last Done: 11/26/19 15:19 DC Date/Time DO NOT enter until pt leaves facility: 11/26/19 15:50
== END 2019-11-26 15:50 | disposition hospice, inpatient (51) | DRG 441 ==
LOC: 3N 05:06 → ED 05:06 → 3N 08:56 → SUATTDRO 11-21 09:37 → 3N 11-21 14:21